=== PATIENT | female | born 1975 | race Caucasian/White ===

== ENCOUNTER 2020-03-10 12:41 | Outpatient (REF) | payer OTHER, SELFPAY ==
--- NOTE | 2020-03-10 12:46 | MM_ITS ---
EXAMINATION: MM SCREENING DIGITAL MAMMOGRAPHY, BILATERAL CLINICAL INFORMATION: Screening. Asymptomatic. The lifetime risk of breast cancer based on the Tyrer-Cuzick Model is 13.3%. COMPARISON: Mammography: 11/14/2018 and studies dating back to 04/24/2014. TECHNIQUE: Digital mammography is performed in craniocaudal and mediolateral oblique views along with computer-aided detection (CAD). FINDINGS: There are scattered areas of fibroglandular density (ACR BI-RADS breast composition Category b). There is a grouping of calcifications about the deep upper outer aspect of the left breast, approximately 11 cm from the nipple for which spot magnification films are recommended. No abnormality of the right breast is appreciated. MM/MM screening mammo BI IMPRESSION: Left breast calcifications upper outer aspect for which spot magnification films are recommended. ASSESSMENT: BI-RADS 0: Incomplete - Need Additional Imaging Evaluation. RECOMMENDATION: 1. Additional views of the left breast. 2. Targeted ultrasound if warranted after review of the additional views. 3. Radiology department staff will contact the patient for additional imaging.
== END 2020-03-10 12:42 | disposition home or self-care (01) ==
LOC: HO.MAMMO 12:41
PROVIDERS: Visit Provider Internal Medicine
DX: Z12.31 Encounter for screening mammogram for malignant neoplasm of breast (principal)
CPT/HCPCS: 77067

== ENCOUNTER 2020-04-02 13:51 | Outpatient (REF) | payer OTHER, SELFPAY ==
--- NOTE | 2020-04-02 13:57 | MM_ITS ---
EXAMINATION: MM DIAGNOSTIC DIGITAL MAMMOGRAPHY, LEFT CLINICAL INFORMATION: Recall from screening for calcifications posterior upper outer left breast. COMPARISON: Mammography: 03/10/2020, 11/14/2018, 12/07/2016 TECHNIQUE: Digital mammography is performed in the following views: Magnification CC, magnification ML, magnification CC x2. FINDINGS: There are scattered areas of fibroglandular density (ACR BI-RADS breast composition Category b). The additional views show group of 6 punctate round calcifications in the posterior upper breast best appreciated on MLO view. The calcifications are not as well visible and lesser in number on the CC views. Management options were discussed with the patient including short interval follow-up surveillance as well as attempt at stereotactic sampling. At this time, patient prefers attempting stereotactic sampling. She understands that if tissue sampling is not performed then short interval diagnostic mammographic follow-up will be required. MM/MM added views LT IMPRESSION: Small group of faint calcifications posterior upper outer left breast. ASSESSMENT: BI-RADS 4: Suspicious (subcategory 4A: Low suspicion for malignancy) RECOMMENDATION: 1. Stereotactic sampling of the left breast calcifications. 2. If tissue sampling is not performed, then follow up diagnostic left mammography to include magnification views in 6 months. This patient's information was entered into a reminder system with a target due date for their next mammogram.
== END 2020-04-02 13:52 | disposition home or self-care (01) ==
LOC: HO.MAMMO 13:51
PROVIDERS: PCP Internal Medicine; Visit Provider Internal Medicine
DX: R92.1 Mammographic calcification found on diagnostic imaging of breast (principal)
CPT/HCPCS: 77065

== ENCOUNTER → 2020-04-07 15:06 | Outpatient (BNVA) | payer OTHER, SELFPAY | PROVIDERS: PCP Internal Medicine; Referring Provider Internal Medicine; Visit Provider Internal Medicine | DX: Z76.89 Persons encountering health services in other specified circumstances (principal) ==

== ENCOUNTER → 2020-04-08 08:25 | Outpatient (BNVA) | payer OTHER, SELFPAY | PROVIDERS: PCP Internal Medicine; Visit Provider Surgery | DX: Z76.89 Persons encountering health services in other specified circumstances (principal) ==

== ENCOUNTER 2020-04-15 08:00 | Outpatient (REF) | payer OTHER, SELFPAY ==
--- NOTE | 2020-04-15 08:04 | MM_ITS ---
EXAMINATION: STEREOTACTIC TOMOSYNTHESIS-GUIDED VACUUM-ASSISTED BREAST BIOPSY, LEFT SPECIMEN RADIOGRAPH, LEFT POST PROCEDURE DIGITAL MAMMOGRAM, LEFT CLINICAL INFORMATION: Small grouped calcifications posterior upper outer left breast, 5-8 in number. COMPARISON: Mammography 03/10/2020, 04/02/2020. TECHNIQUE/PROCEDURE: Informed consent was obtained from the patient after discussion of the benefits, risks, and alternatives to biopsy today. Patient appeared to understand. Gave opportunity for questions. Patient signed consent form. BIOPSY TABLE: [employer] Biopsy System. LESION: Grouped calcifications posterior upper outer left breast. LOCAL ANESTHESIA: 7 mL 1% lidocaine; 10 mL 1% lidocaine with epinephrine. DERMATOTOMY: Single skin baldemar dermatotomy performed. NEEDLE: [employer] Eviva 9-gauge vacuum assisted core biopsy device. APPROACH: lateral medial. TARGETING: Digital breast tomosynthesis used for targeting. CORES: 6. CLIP: [employer] Sec[employer]Mark T-shaped marker. SPECIMEN RADIOGRAPH: Specimen radiograph is taken in separate room using digital mammography. There are 3 punctate calcifications in one of the cores. POST PROCEDURE UNILATERAL DIGITAL MAMMOGRAM: The post biopsy mammogram is performed in separate room using separate digital mammography equipment from the biopsy procedure. CC and ML views are obtained. There are scattered areas of fibroglandular density (breast composition category: b). The clip marker is in position. No gross hematoma. The patient tolerated the procedure well. No immediate complications. Home instructions reviewed with the patient. Final pathology results are pending. MM/MM stereotactic biopsy LT IMPRESSION: 1. Digital tomosynthesis-guided core biopsy left breast with clip placement. 2. Specimen radiograph taken and post procedure mammogram. There is satisfactory positioning of the biopsy clip. 3. Final pathology results pending. An addendum report will be issued.
== END 2020-04-15 08:01 | disposition home or self-care (01) ==
LOC: HO.MAMMO 08:00
PROVIDERS: Visit Provider Surgery
DX: R92.1 Mammographic calcification found on diagnostic imaging of breast (principal)
CPT/HCPCS: 19081; 88305; A4648

== ENCOUNTER 2020-04-16 16:22 | Outpatient (REF) | payer OTHER, SELFPAY ==
--- NOTE | 2020-04-16 16:27 | US_ITS ---
EXAMINATION: US THYROID CLINICAL INFORMATION: Nontoxic goiter, unspecified. COMPARISON: Ultrasound soft tissue head/neck thyroid dated 01/11/2018 and 04/17/2015 TECHNIQUE: Linear transducer riggins-scale and color Doppler examination with attention to the region of the thyroid. FINDINGS: SIZE: Measurements of the thyroid lobes and nodules are given in sagittal, anteroposterior and transverse dimensions respectively. Right Thyroid Lobe: 5.6 x 1.3 x 1.9 cm, volume 7.4 mL. Previously 5.1 x 1.3 x 1.8 cm, volume 5.4 mL. Parenchyma: The gland echotexture is homogeneous. Thyroid vascularity is normal. Left Thyroid Lobe: 5.0 x 1.4 x 1.7 cm, volume 6.1 mL. Previously 5.2 x 1.3 x 1.8 cm, volume 6.4 mL. Parenchyma: The gland echotexture is homogeneous. Thyroid vascularity is normal. Isthmus: 0.5 cm in maximum AP dimension. Previously 0.3 cm. RIGHT THYROID LOBE: There are 3 nodules seen. 1. Location: Superior. Size: 0.4 x 0.3 x 0.4 cm. Previous: 0.5 x 0.6 x 0.6 cm. Nodule characteristics: Heterogenous, irregular shaped but no calcification and no intranodular flow. 2. Location: Middle. Size: 0.9 x 0.6 x 1.1 cm. Previous: 0.5 x 1.0 x 1.0 cm. Nodule characteristics: Heterogeneous, irregular shaped with intranodular flow. 3. Location: Inferior. Size: 0.5 x 0.4 x 0.7 cm. Previous: 0.6 x 0.5 x 0.5 cm. Nodule characteristics: Heterogeneous, irregular margins with intranodular flow. ISTHMUS: There is greater than 1 nodule seen. 1. Location: Middle. Size: 0.6 x 0.3 x 0.5 cm. Previous: 0.7 x 0.5 x 0.8 cm. Nodule characteristics: Hypoechoic, irregular margins with intranodular flow. LEFT THYROID LOBE: There are 4 nodules seen. 1. Location: Middle. Size: 0.9 x 0.6 x 0.8 cm. Previous: 0.9 x 0.6 x 0.7 cm. Nodule characteristics: Heterogeneous, smoothly marginated with intranodular flow. 2. Location: Middle. Size: 0.4 x 0.2 x 0.3 cm. Previous: Not documented on the prior study. Nodule characteristics: Heterogenous, irregular shaped with intranodular flow. 3. Location: Inferior. Size: 0.7 x 0.6 x 0.6 cm. Previous: Not documented on the prior study. Nodule characteristics: Hypoechoic, smoothly marginated with no intranodular flow, likely simple cyst. 4. Location: Inferior. Size: 0.9 x 0.6 x 1.0 cm. Previous: 1.2 x 0.7 x 1.2 cm. Nodule characteristics: Heterogeneous, irregular margins and intranodular flow. NODES: No lymphadenopathy is seen in the tissue surrounding the thyroid gland. US/US thyroid IMPRESSION: Multiple subcentimeter thyroid nodules, nonsuspicious. Recommend continued ultrasound followup.
== END 2020-04-16 16:23 | disposition home or self-care (01) ==
LOC: HO.US 16:22
PROVIDERS: Visit Provider Internal Medicine
DX: E04.9 Nontoxic goiter, unspecified (principal)
CPT/HCPCS: 76536

== ENCOUNTER → 2020-05-07 10:31 | Outpatient (BNVA) | payer OTHER, SELFPAY | PROVIDERS: PCP Internal Medicine; Visit Provider Dietitian, Registered ==

== ENCOUNTER 2021-07-14 08:10 | Outpatient (REF) | payer BC, SELFPAY ==
--- NOTE | ~2021-07-14 | MM_ITS ---
EXAMINATION: MM SCREENING DIGITAL BREAST TOMOSYNTHESIS, BILATERAL CLINICAL INFORMATION: Screening. Asymptomatic. Benign left stereotactic biopsy 04/15/2020 (benign breast tissue with fibrocystic changes and rare microcalcifications). The lifetime risk of breast cancer based on the Tyrer-Cuzick Model is 13%. COMPARISON: Mammography: 04/15/2020, 04/02/2020, 03/10/2020, 11/14/2018, 12/14/2016, 12/07/2016, 09/24/2015, 04/24/2014; right breast ultrasound 12/14/2016. TECHNIQUE: Digital breast tomosynthesis is performed in both the craniocaudal and mediolateral oblique views along with computer-aided detection (CAD). Synthesized 2D images are generated from the tomosynthesis. FINDINGS: There are scattered areas of fibroglandular density (ACR BI-RADS breast composition Category b). There are no significant masses, abnormal calcifications, or other abnormalities. There are scattered asymmetries and shifting fibroglandular densities related to positioning similar to prior exams. No significant changes. There is a biopsy clip marker posterior upper outer left breast. No recurrent calcifications. The axilla and skin contours are unremarkable. MM/MM tomosynthesis screening BI IMPRESSION: No significant changes from prior exams. ASSESSMENT: BI-RADS 2: Benign RECOMMENDATION: Routine annual mammography screening. This patient's information was entered into a reminder system with a target due date for their next mammogram.
== END 2021-07-14 08:11 | disposition home or self-care (01) ==
LOC: HO.MAMMO 08:10
PROVIDERS: Visit Provider Internal Medicine
DX: Z12.31 Encounter for screening mammogram for malignant neoplasm of breast (principal)
CPT/HCPCS: 77063; 77067

== ENCOUNTER 2021-12-01 08:26 | Outpatient (REF) | payer BC, SELFPAY ==
--- NOTE | ~2021-12-01 | US_ITS ---
EXAMINATION: US ABDOMEN COMPLETE CLINICAL INFORMATION: Right upper quadrant pain. COMPARISON: CT abdomen and pelvis 04/11/2013. TECHNIQUE: Real-time imaging of the abdominal viscera. FINDINGS: PANCREAS: Not well visualized due to bowel gas ABDOMINAL AORTA: The proximal, mid, and distal segments are normal in caliber. INFERIOR VENA CAVA: Visualized portions are normal. LIVER: Liver echotexture is increased. The liver is slightly enlarged. The liver contour is normal. No focal hepatic lesion. There is no intrahepatic biliary duct dilatation seen. GALLBLADDER: Normal. The gallbladder is physiologically distended without evidence of stones, sludge, polyps, wall thickening or pericholecystic fluid. COMMON BILE DUCT: Normal in caliber measuring 0.3 cm in diameter. RIGHT KIDNEY: Normal. No hydronephrosis. No renal calculi or focal parenchymal lesions. The kidney measures 13.2 cm in maximum dimension. LEFT KIDNEY: Normal. No hydronephrosis. No renal calculi or focal parenchymal lesions. The kidney measures 11.2 cm in maximum dimension. SPLEEN: There is a round 7.5 x 7.6 cm lesion exophytic to the posterior medial spleen. This has a calcified wall and internal echoes and unchanged from size from previous CT scan. When compared with previous CT scan this probably represents a complex cyst. The spleen measures 13.1 cm in maximum dimension. FREE FLUID: None. US/US abdomen complete IMPRESSION: Enlarged echogenic liver probably representing fatty infiltration. Normal-appearing gallbladder. 7.5 x 7.6 cm probable complex cyst splenic cyst. This is similar in size to old CT scans from 2013 and 2010. Limited visualization of the pancreas.
== END 2021-12-01 08:27 | disposition home or self-care (01) ==
LOC: HO.HMGCX 08:26
PROVIDERS: Visit Provider Internal Medicine
DX: R10.11 Right upper quadrant pain (principal); R79.89 Other specified abnormal findings of blood chemistry
CPT/HCPCS: 76700

== ENCOUNTER 2022-06-23 08:16 | Outpatient (REF) | payer BC, SELFPAY ==
[2022-06-23 11:54] LABS: MANUAL DIFF FLAG NO
[2022-06-23 12:09] LABS: Basophils Absolute Auto 0.1 X10*3/uL (0.0-0.2); Eosinophils Absolute Auto 0.3 X10*3/uL (0.0-0.4); Hematocrit 41.9 % (37.0-47.0); Hemoglobin 14.4 g/dl (12.0-16.0); Imm Gran Abs Auto 0.02 X10*3/uL (0.00-0.03); Imm Gran Pct Auto 0.3 % (0.0-0.4); Lymphocytes Absolute Auto 2.3 X10*3/uL (1.2-4.9); Mean Corpuscular HGB Conc 34.4 g/dl (31.0-35.0); Mean Corpuscular Hemoglobin 31.8 pg (27.0-33.0); Mean Corpuscular Volume 92.5 fL (80.0-98.0); Mean Platelet Volume 13.9 fL (9.4-12.3); Monocytes Absolute Auto 0.4 X10*3/uL (0.1-1.2); Monocytes Percent Auto 6.3 % (2-11); Neutrophils Absolute Auto 3.9 x10*3/uL (2.0-8.3); Neutrophils Percent Auto 55.4 % (45-73); Platelet Count 126 X10*3/uL (160-400); Red Blood Count 4.53 X10*6/uL (4.20-5.50); Red Cell Distribution Width 11.9 % (11.0-16.0)
[2022-06-23 12:59] LABS: Alanine Aminotransferase 44 U/L (0-31); Albumin Level 4.2 g/dL (3.5-5.0); Alkaline Phosphatase 87 U/L (39-117); Anion Gap 13 (12-20); Aspartate Amino Transferase 29 U/L (5-31); Bilirubin Total 0.5 mg/dL (0.0-1.0); Blood Urea Nitrogen 8 mg/dL (9-16); Calcium 9.6 mg/dL (8.4-10.2); Carbon Dioxide 25 mmol/L (22-29); Chloride 107 mmol/L (96-108); Cholesterol 220 mg/dL; Estimated Glomerular Filt Rate > 60; Glucose Fasting 108 mg/dL (60-99); HDL Cholesterol 51 mg/dL; LDL Cholesterol Calculated 150 mg/dl; Potassium 4.3 mmol/L (3.3-5.1); Sodium 141 mmol/L (135-145); TSH reflex Free T4 1.65 uIU/mL (0.32-4.0); Total Protein 6.3 g/dL (6.5-8.0); Triglycerides 96 mg/dL
== END 2022-06-23 08:17 | disposition home or self-care (01) ==
LOC: HO.HMGCLDS 08:16
PROVIDERS: PCP Internal Medicine; Visit Provider Internal Medicine
DX: D69.6 Thrombocytopenia, unspecified (principal); E66.09 Other obesity due to excess calories; E78.9 Disorder of lipoprotein metabolism, unspecified; F33.41 Major depressive disorder, recurrent, in partial remission; F41.1 Generalized anxiety disorder; R00.2 Palpitations; R79.89 Other specified abnormal findings of blood chemistry
CPT/HCPCS: 36415; 80053; 80061; 84443; 85025

== ENCOUNTER 2022-06-25 08:18 | Outpatient (REF) | payer BC, SELFPAY ==
--- NOTE | ~2022-06-25 | XR_ITS ---
EXAMINATION: XR cervical spine 2V CLINICAL INFORMATION: Pain COMPARISON: None TECHNIQUE: 3 views of the cervical spine were obtained. FINDINGS: The cervical spine is visualized to the level of C6 on the lateral view. Loss of the usual cervical spine lordosis which may be due to positioning or muscle spasm. Vertebral body heights are maintained. Lateral masses of C1 are well aligned on C2. Visualized portion of the dens is intact. Intervertebral disc spaces are preserved. No prevertebral soft tissue swelling. XR/XR cervical spine 2V IMPRESSION: Loss of usual cervical spine lordosis which may be due to positioning or muscle spasm.
== END 2022-06-25 08:19 | disposition home or self-care (01) ==
LOC: HO.HMGCX 08:18
PROVIDERS: PCP Internal Medicine; Visit Provider Internal Medicine
DX: M54.12 Radiculopathy, cervical region (principal)
CPT/HCPCS: 72040

== ENCOUNTER → 2022-07-27 14:40 | Outpatient (BNVA) | payer BC, SELFPAY | PROVIDERS: PCP Internal Medicine; Visit Provider Physician Assistant | DX: M54.12 Radiculopathy, cervical region (principal) | CPT/HCPCS: 99202 ==

== ENCOUNTER 2022-08-26 09:42 | Outpatient (REF) | payer MEDICAID, SELFPAY ==
--- NOTE | ~2022-08-26 | MR_ITS ---
EXAMINATION: MR CERVICAL SPINE WITHOUT CONTRAST CLINICAL INFORMATION: Numbness and pain in the right arm and hand COMPARISON: None TECHNIQUE: MRI of the cervical spine was obtained using routine sequences without contrast. FINDINGS: Trace retrolisthesis of C5 on C6. No suspicious marrow signal or focal osseous lesion. The vertebral body heights are maintained. The intervertebral discs are of normal height and signal. The cervical spinal cord is normal in caliber and signal Limited evaluation of the soft tissues of the neck without demonstrated abnormalities. The flow voids of the major cervical vessels are maintained. Normal appearance of the cervicomedullary junction. Slight caudal positioning of the right cerebellar tonsil which extends up to 5 mm below the foramen magnum and demonstrates a pointed morphology. SPINAL LEVELS: C2-C3: No significant spinal canal or neuroforaminal narrowing C3-C4: Right uncovertebral hypertrophy. No significant central spinal canal stenosis. Mild to moderate right neural foraminal narrowing. C4-C5: No significant spinal canal or neuroforaminal narrowing C5-C6: Left eccentric osteophyte complex and uncovertebral hypertrophy. Moderate central spinal canal stenosis. Mild to moderate bilateral neural foraminal narrowing, left greater than right C6-C7: Disc osteophyte complex and uncovertebral hypertrophy. Mild central spinal canal stenosis. Severe right and moderate to severe left neural foraminal narrowing. C7-T1: No significant spinal canal or neuroforaminal narrowing MR/MR cervical spine wo con IMPRESSION: 1. Multilevel cervical spondylosis as described above, worst at C5-C6 and C6-C7. There is moderate spinal canal stenosis at C5-C6 and mild spinal canal stenosis at C6-C7. Neuroforaminal narrowing is worst at C6-C7 and severe on the right and moderate to severe on the left. 2. 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
== END 2022-08-26 09:43 | disposition home or self-care (01) ==
LOC: HO.MRI 09:42
PROVIDERS: PCP Internal Medicine; Visit Provider Physician Assistant
DX: M54.12 Radiculopathy, cervical region (principal)
CPT/HCPCS: 72141

== ENCOUNTER 2022-08-31 10:00 | Outpatient (RCR) | payer MEDICAID, SELFPAY ==
--- NOTE | 2022-08-24 11:32 | MHC.PT.EP ---
[facility] [place] Office [place] Office [place] Office [address] Mook Guy [address] [phone] F: [phone] F: [phone] F: [phone] F: [phone] Physical Therapy Plan of Care Date of Evaluation: Date of Surgery: n/a Diagnosis: radiculopathy cervical region Assessment: Patient is a 46 year old female presenting to PT with complaints of cervical radiculopathy. Pt reports onset of pain began April 2022 due to insidious onset. She presents today with impairments in pain, numbness, tingling, posture, DNF strength. 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 Pt expresses alf goal of reducing pain, and is motivated to work towards this in PT. Clinical presentation today is most consistent with signs and sx associated with possible cervical radiculopathy and pt will benefit from skilled PT 2 week x 4 weeks to address the following problems and impairments noted upon evaluation: pain, numbness, tingling, posture, DNF strength. These problems limit the patient with the following functional activities: driving, gripping, ADLs, sleeping on L, looking to L. The prescribed treatment plan of care is medically necessary. Co-morbidities of none were identified and taken into considerations of plan of care. Pt was educated on HEP, role of PT, prognosis, POC. Frequency and Duration: The patient will be seen 2 x week x 4 weeks Short Term Goals: Pt will demonstrate ability to move through cervical AROM without onset of sx in 2 weeks. Pt will demonstrate centralization of sx in 2 weeks. Pt will demonstrate improved postural awareness by sitting with biomechanically correct posture without cues throughout session to improve overall postural function in 2 weeks. Upper Cutter Machine Goals: Pt will demonstrate improved NDI by 10% in 4 weeks for improved functional mobility. Pt will demonstrate ability to drive without feeling issues with gripping the steering wheel in 4 weeks. Pt will demonstrate ability to sleep on her L side without onset of sx in 4 weeks for return to PLOF. Treatment Plan: Modalities to reduce pain, spasms and effusion. Manual therapy to restore motion and function. Therapeutic exercise to improve strength and flexibility. Neuromuscular re-education for posture and balance. Therapeutic activities to return to functional activities of daily living. Electronically signed by: Marlyn Porter, PT, DPT, ATC Please sign and return to therapist. Thank you for your referral.
--- NOTE | 2022-09-14 07:51 | MHC.PT.DC ---
[facility] [place] Office [place] Office [place] Office [address] Mook Guy [address] [phone] F: [phone] F: [phone] F: [phone] F: [phone] Physical Therapy Discharge Report Diagnosis: radiculopathy cervical region Date of Surgery: n/a Date of Evaluation: 08/24/22 Date of Discharge: 09/14/22 Treatments to Date: 2 Cancellations to Date: 1 No Shows to Date: 2 Discharge Status: Visit Non-compliance Discharge Summary: Pt has failed to comply with [facility] attendance policy and no showed her last 2 scheduled visits. Pt to be d/c at this time. Electronically signed by: Marlyn Porter, PT, DPT, ATC Please sign and return to therapist. Thank you for your referral.
== END 2022-09-14 07:51 | disposition home or self-care (01) ==
LOC: HO.PTCHIC 10:00
PROVIDERS: PCP Internal Medicine; Visit Provider Physician Assistant
DX: M54.12 Radiculopathy, cervical region (principal)
CPT/HCPCS: 97110; 97161

== ENCOUNTER 2022-09-25 09:54 | Outpatient (REF) | payer OTHER, SELFPAY ==
--- NOTE | ~2022-09-25 | MM_ITS ---
EXAMINATION: MM SCREENING DIGITAL BREAST TOMOSYNTHESIS, BILATERAL CLINICAL INFORMATION: Screening. Asymptomatic. The lifetime risk of breast cancer based on the Tyrer-Cuzick Model is 13%. COMPARISON: Prior mammography exams including most recent 07/14/2021. TECHNIQUE: Digital breast tomosynthesis is performed in both the craniocaudal and mediolateral oblique views along with computer-aided detection (CAD). Synthesized 2D images are generated from the tomosynthesis. FINDINGS: There are scattered areas of fibroglandular density (ACR BI-RADS breast composition Category b). There are no significant masses, abnormal calcifications, or other abnormalities. There is a biopsy clip marker posterior upper outer left breast. Scattered minor asymmetries are similar to prior exams. No developing density or architectural abnormality. The axilla and skin contours are unremarkable. No significant changes. MM/MM tomosynthesis screening BI IMPRESSION: No mammographic evidence of malignancy. ASSESSMENT: BI-RADS 2: Benign RECOMMENDATION: Routine annual mammography screening. This patient's information was entered into a reminder system with a target due date for their next mammogram.
== END 2022-09-25 09:55 | disposition home or self-care (01) ==
LOC: HO.MAMMO 09:54
PROVIDERS: PCP Internal Medicine; Visit Provider Internal Medicine
DX: Z12.31 Encounter for screening mammogram for malignant neoplasm of breast (principal)
CPT/HCPCS: 77063; 77067

== ENCOUNTER 2022-11-05 13:02 | Outpatient (AMB) | payer OTHER, MEDICAID, SELFPAY ==
[2022-11-05 13:05] VITALS: BP 134/78; PULSE 92; TEMP 36.1; O2SAT 98; BMI 35.9
--- NOTE | 2022-11-05 13:06 | MHC.PC.OV ---
Vital Signs 11/05/22 13:05 Height 5 ft 8 in Weight 236 lb 6 oz BMI 35.9 BP 134/78 Blood Pressure Location Lt brachial Position Sitting Pulse 92 Pulse Source Pulse Oximeter Temp 96.9 F Temp Source Temporal Artery Scan Pulse Oximetry (%) 98 Oxygen Delivery Method Room Air Intake Visit Reasons: Follow up Allergies Penicillins [PCN] Allergy (Unknown, Verified 11/05/22 13:06) RASH Medication List - Last Reconciled 11/05/22 by Debbie Lozada MD bupropion HCl (Wellbutrin SR) 150 mg PO BID 90 days omega 1-hdp-ztr-fish oil 1,000 mg (120 mg-180 mg) (Fish Oil) 1 cap PO DAILY omeprazole 20 mg PO DAILY Tobacco use date assessed: 11/05/22 Dental Screening Dental Screen Date: 11/05/22 Did you have a dental visit in the last 12 months?: Yes Did you have a dental problem in the last 6 months where you did not have access to dental care?: No Was dental information given to patient?: No HPI Follow up HPI Details 47-year-old female came in today to talk about few medical issues Patient is prediabetic last time she was seen June of this year she was supposed to have labs done and then come in for physical exam but she did not Reminded patient do the labs She also take Wellbutrin for depression and omeprazole for chronic GERD she is c/o of mood swings, has taken fluoxtine in the past, and did OK Afraid to have side effects medication , I am starting her on buspirone as she is having anxiety and panic-like symptoms off and on patient is to start with 1 tablet in the morning She may take 1 after 8 hours up to 3 times a day. Patient says that she has counselor that she going to start seeing a She is to continue Wellbutrin Her bloating sensation is causing distress she is on omeprazole I have changed it to pantoprazole She does have a family history of colon cancer I have placed a referral to gastroenterology for further evaluation. She is to return in 3 weeks for follow-up FOR[facility]LY [facility], [facility] Medical History Anxiety, generalized Breast calcification, left Depression, major, recurrent, in partial remission Environmental allergies Goiter HLD (hyperlipidemia) Lipid disorder Obesity Vitamin D deficiency Surgical History History of section History of lumbar surgery Family History Father HTN (hypertension) CHF (congestive heart failure) CVD (cardiovascular disease) Hypercholesterolemia Hx of CABG Myocardial infarction Mother Osteoporosis HTN (hypertension) Brother HTN (hypertension) Hypercholesterolemia Social History Housing: House Alcohol intake: current Alcohol intake frequency: holidays/special occasions only Patient Tobacco Use Status: Former Tobacco user Cigarette Packs Per Day: 1 Years Smoked: 30 e-Cigarette/Vaping Use: Never Used service: No Current occupational status: employed Cognitive needs: Yes Hearing needs: No Vision needs: No Questionnaire Thrive Questionnaire Date Thrive assessed: 09/04/21 AUDIT C Alcohol Use Questionnaire (AUDIT-C) 1. How often do you have a drink containing alcohol?: Monthly or less 2. How many drinks containing alcohol do you have on a typical day when you are drinking?: 1 or 2 3. How often do you have six or more drinks on one occasion?: Never Total Score: 1 CARLA-7 AMB Questionnaire CARLA-7 Date CARLA - 7 assessed: 09/04/21 Source: Developed by Drs. Igor Nagel, Juanita Pulido, Shamar Rust and colleagues, with an educational joseph from [employer]. Review of Systems Const Denies chills and Denies fever(s) ENT Denies epistaxis and Denies nasal discharge Card Denies chest pain Resp Denies chest congestion, Denies cough and Denies hemoptysis GI Denies diarrhea and Denies nausea Skin/Breast Denies rash Neuro Reports no additional complaints Psych Reports no additional complaints Endo Reports no additional complaints Physical exam (Primary Care) Vital Signs: Last Vital Signs Temp 96.9 F 11/05/22 13:05 Pulse 92 11/05/22 13:05 BP 134/78 11/05/22 13:05 Pulse Ox 98 11/05/22 13:05 Oxygen Delivery Method Room Air 11/05/22 13:05 BMI result Body Mass Index 35.9 Tobacco/Smoking Status: Tobacco use Status Tobacco use date assessed 11/05/22 11/05/22 13:07 Patient Tobacco Use Status Former Tobacco user 11/05/22 13:07 e-Cigarette/Vaping Use Never Used 11/05/22 13:07 Thrive Assessment: Date of Thrive Assessment Date Thrive assessed 09/04/21 11/05/22 13:07 Const General: cooperative, comfortable and no acute distress Orientation/consciousness: patient oriented x3 HENMT Head: Yes normocephalic Eyes General: appearance normal, both eyes and all related structures Neck Neck: Yes supple Resp Effort & Inspection: normal respiratory effort, no cough and no stridor Cardio Rhythm: regular rhythm Heart sounds: S1 normal heart sound present and S2 normal heart sound present Skin General skin exam: turgor normal Neuro General: patient oriented x3, tone normal and moves all extremities Extrem Right lower extremity: no edema Left lower extremity: no edema Assessment and Plan Assessment & Plan (1) Major depression, recurrent: Code(s): F33.9 - Major depressive disorder, recurrent, unspecified (2) Bloating: Code(s): R14.0 - Abdominal distension (gaseous) (3) Mood swings: Code(s): R45.86 - Emotional lability (4) Anxiety, generalized: Code(s): F41.1 - Generalized anxiety disorder (5) Colon cancer screening: Code(s): Z12.11 - Encounter for screening for malignant neoplasm of colon Plan 47-year-old female came in today to talk about few medical issues Patient is prediabetic last time she was seen June of this year she was supposed to have labs done and then come in for physical exam but she did not Reminded patient do the labs She also take Wellbutrin for depression and omeprazole for chronic GERD she is c/o of mood swings, has taken fluoxtine in the past, and did OK Afraid to have side effects medication , I am starting her on buspirone as she is having anxiety and panic-like symptoms off and on patient is to start with 1 tablet in the morning She may take 1 after 8 hours up to 3 times a day. Patient says that she has counselor that she going to start seeing a She is to continue Wellbutrin Her bloating sensation is causing distress she is on omeprazole I have changed it to pantoprazole She does have a family history of colon cancer I have placed a referral to gastroenterology for further evaluation. She is to return in 3 weeks for follow-up Orders: Referrals Gastroenterology Referral R14.0 - Abdominal distension (gaseous), Z12.11 - Encounter for screening for malignant neoplasm of colon Medications: New buspirone 5 mg PO .q am PRN 30 tabs 0RF anxiety 30 days pantoprazole 40 mg PO DAILY 30 tabs 0RF Coding Level of Care Code Est Pt Level 4 (22809) Diagnoses Major depression, recurrent F33.9 Bloating R14.0 Mood swings R45.86 Anxiety, generalized F41.1 Colon cancer screening Z12.11
== END 2022-11-05 14:05 | disposition home or self-care (01) ==
PROVIDERS: PCP Internal Medicine; Visit Provider Internal Medicine
DX: F33.9 Major depressive disorder, recurrent, unspecified (principal); R14.0 Abdominal distension (gaseous); R45.86 Emotional lability; F41.1 Generalized anxiety disorder; Z12.11 Encounter for screening for malignant neoplasm of colon
CPT/HCPCS: 99214

== ENCOUNTER 2022-11-18 10:34 | Outpatient (REF) | payer OTHER, SELFPAY ==
[2022-11-18 13:52] LABS: Estimated Average Glucose 91 mg/dL; Hemoglobin A1c % 4.8 %
[2022-11-18 13:56] LABS: Basophils Absolute Auto 0.1 X10*3/uL (0.0-0.2); Basophils Percent Auto 0.7 % (0-2); Eosinophils Absolute Auto 0.2 X10*3/uL (0.0-0.4); Hematocrit 41.3 % (37.0-47.0); Hemoglobin 14.5 g/dl (12.0-16.0); Imm Gran Abs Auto 0.02 X10*3/uL (0.00-0.03); Imm Gran Pct Auto 0.2 % (0.0-0.4); Lymphocytes Absolute Auto 2.5 X10*3/uL (1.2-4.9); Lymphocytes Percent Auto 31.4 % (20-40); MANUAL DIFF FLAG SCAN; Mean Corpuscular HGB Conc 35.1 g/dl (31.0-35.0); Mean Corpuscular Hemoglobin 32.4 pg (27.0-33.0); Mean Corpuscular Volume 92.4 fL (80.0-98.0); Monocytes Absolute Auto 0.5 X10*3/uL (0.1-1.2); Monocytes Percent Auto 5.9 % (2-11); Neutrophils Absolute Auto 4.8 x10*3/uL (2.0-8.3); Neutrophils Percent Auto 59.8 % (45-73); PLT CLUMP 1; Red Blood Count 4.47 X10*6/uL (4.20-5.50); Red Cell Distribution Width 11.7 % (11.0-16.0); SCAN SMEAR FLAG 1
[2022-11-18 14:00] LABS: Alanine Aminotransferase 96 U/L (0-31); Albumin Level 4.2 g/dL (3.5-5.0); Alkaline Phosphatase 74 U/L (39-117); Anion Gap 10 (12-20); Aspartate Amino Transferase 54 U/L (5-31); Bilirubin Total 0.6 mg/dL (0.0-1.0); Blood Urea Nitrogen 11 mg/dL (9-16); Calcium 9.5 mg/dL (8.4-10.2); Carbon Dioxide 26 mmol/L (22-29); Chloride 108 mmol/L (96-108); Cholesterol 221 mg/dL; Estimated Glomerular Filt Rate > 60; Glucose Fasting 90 mg/dL (60-99); HDL Cholesterol 52 mg/dL; LDL Cholesterol Calculated 151 mg/dl; Potassium 4.7 mmol/L (3.3-5.1); Sodium 139 mmol/L (135-145); Total Protein 6.9 g/dL (6.5-8.0); Triglycerides 92 mg/dL
[2022-11-18 14:32] LABS: Platelet Count 140 X10*3/uL (160-400); SLIDE REVIEW VERIFIED
== END 2022-11-18 10:35 | disposition home or self-care (01) ==
LOC: HO.HMGCLDS 10:34
PROVIDERS: PCP Internal Medicine; Visit Provider Internal Medicine
DX: F33.9 Major depressive disorder, recurrent, unspecified (principal); M54.12 Radiculopathy, cervical region; R73.01 Impaired fasting glucose; R79.89 Other specified abnormal findings of blood chemistry; E78.9 Disorder of lipoprotein metabolism, unspecified
CPT/HCPCS: 36415; 80053; 80061; 83036; 85025

== ENCOUNTER 2022-11-26 13:01 | Outpatient (AMB) | payer OTHER, MEDICAID, SELFPAY ==
[2022-11-26 13:04] VITALS: BP 124/76; PULSE 86; O2SAT 97; BMI 35.9
--- NOTE | 2022-11-26 13:04 | MHC.PC.OV ---
Vital Signs 11/26/22 13:04 Height 5 ft 8 in Weight 236 lb 2 oz BMI 35.9 BP 124/76 Blood Pressure Location Rt brachial Position Sitting Pulse 86 Pulse Source Pulse Oximeter Pulse Oximetry (%) 97 Oxygen Delivery Method Room Air Intake Visit Reasons: 3-4 week Follow up/Ok per Dr. Lozada Allergies Penicillins [PCN] Allergy (Unknown, Verified 11/26/22 13:07) RASH Medication List - Last Reconciled 11/26/22 by Debbie Lozada MD bupropion HCl (Wellbutrin SR) 150 mg PO BID 90 days buspirone 5 mg PO .q am PRN 30 days omega 7-jqh-cuh-fish oil 1,000 mg (120 mg-180 mg) (Fish Oil) 1 cap PO DAILY Tobacco use date assessed: 11/26/22 Dental Screening Dental Screen Date: 11/26/22 Did you have a dental visit in the last 12 months?: Yes Did you have a dental problem in the last 6 months where you did not have access to dental care?: No Was dental information given to patient?: No HPI 3-4 week Follow up/Ok per Dr. Lozada HPI Details Patient is 47-year-old female came in today for follow-up appointment Anxiety: Patient has started taking buspirone she is feeling better she will introduce another tablet currently she is only taking 1 or 2. She could not tolerate pantoprazole so she went back to omeprazole. We talked about diet today I would recommend for her to eliminate dairy from her diet and see if her bloating gets better Also to keep a food diary. She has an appointment with review appraiser and this month discuss colonoscopy. Labs done recently reviewed with the patient her ease teen ALT is mildly elevated will continue to monitor that LDL is 151 we discussed that as well I will book her appointment with the dietitian to further discuss diet restrictions. BMI is elevated patient is trying to lose weight. She will return in 3 months for follow-up appointment. Patient had EKG done early this year which is within normal limit [facility] Medical History Anxiety, generalized Breast calcification, left Depression, major, recurrent, in partial remission Environmental allergies Goiter HLD (hyperlipidemia) Lipid disorder Obesity Vitamin D deficiency Surgical History History of section History of lumbar surgery Family History Father HTN (hypertension) CHF (congestive heart failure) CVD (cardiovascular disease) Hypercholesterolemia Hx of CABG Myocardial infarction Mother Osteoporosis HTN (hypertension) Brother HTN (hypertension) Hypercholesterolemia Social History Housing: House Alcohol intake: current Alcohol intake frequency: holidays/special occasions only Patient Tobacco Use Status: Former Tobacco user Cigarette Packs Per Day: 1 Years Smoked: 30 e-Cigarette/Vaping Use: Never Used service: No Current occupational status: employed Cognitive needs: Yes Hearing needs: No Vision needs: No Questionnaire PHQ-9 Over the last 2 weeks, how often have you been bothered by any of the following problems? 1. Little interest or pleasure in doing things: not at all 2. Feeling down, depressed, or hopeless: several days 3. Trouble falling or staying asleep, or sleeping too much: several days 4. Feeling tired or having little energy: several days 5. Poor appetite or overeating: several days 6. Feeling bad about yourself - or that you are a failure or have let yourself or your family down: several days 7. Trouble concentrating on things, such as reading the newspaper or watching television: not at all 8. Moving or speaking so slowly that other people could have noticed. Or the opposite - being so fidgety or restless that you have been moving around a lot more than usual: not at all 9. Thoughts that you would be better off or of hurting yourself in some way: not at all Total score: 5 Depression Screening Interpretation: Negative 99830 - PHQ-9 Billing: Yes Source: Developed by Drs. Igor Nagel, Juanita Pulido, Shamar Rust and colleagues, with an educational joseph from [employer]. Thrive Questionnaire Date Thrive assessed: 11/26/22 I am a: Patient What is your living situation today?: I have a steady place to live Within the past 12 months, did the food you bought not last and you didn't have the money to get more?: Never true Within the past 12 months, did you worry whether your food would run out before you got money to buy more?: Never true Do you have trouble paying for medicines?: No Do you have trouble getting transportation to medical appointments?: No Do you have trouble paying your heating and electricity bill?: No Do you have trouble taking care of your child, family member or friend?: No Do you have trouble with day-to-day activities such as bathing, preparing meals, shopping, managing finances, etc.?: No Are you currently unemployed and looking for a job?: No Are you interested in more education?: No AUDIT C Alcohol Use Questionnaire (AUDIT-C) 1. How often do you have a drink containing alcohol?: Monthly or less 2. How many drinks containing alcohol do you have on a typical day when you are drinking?: 1 or 2 3. How often do you have six or more drinks on one occasion?: Never Total Score: 1 Score Reviewed/Action Taken: Yes CARLA-7 AMB Questionnaire CARLA-7 Date CARLA - 7 assessed: 11/26/22 Feeling nervous, anxious, or on edge: 1 = Several days Not being able to stop or control worryin = Several days Worrying too much about different things: 1 = Several days Trouble relaxin = Several days Being so restless that it is hard to sit still: 0 = Not at all Becoming easily annoyed or irritable: 1 = Several days Feeling afraid as if something awful might happen: 0 = Not at all Total CARLA-7 score (0-4 normal; 5-9 mild; 10-14 moderate; 15-21 severe): 5 Source: Developed by Drs. Igor Nagel, Juanita Pulido, Shamar Rust and colleagues, with an educational joseph from [employer]. CARLA-7 Assessment Billing CARLA-7 Assessment Tool: CARLA-7 Assessment 67109 Review of Systems Const Denies chills and Denies fever(s) ENT Denies epistaxis and Denies nasal discharge Card Denies chest pain Resp Denies chest congestion, Denies cough and Denies hemoptysis GI Denies diarrhea Skin/Breast Denies rash Neuro Reports no additional complaints Psych Reports no additional complaints Endo Reports no additional complaints Physical exam (Primary Care) Vital Signs: Last Vital Signs Pulse 86 11/26/22 13:04 BP 124/76 11/26/22 13:04 Pulse Ox 97 11/26/22 13:04 Oxygen Delivery Method Room Air 11/26/22 13:04 BMI result Body Mass Index 35.9 Tobacco/Smoking Status: Tobacco use Status Tobacco use date assessed 11/26/22 11/26/22 13:08 Patient Tobacco Use Status Former Tobacco user 11/26/22 13:08 e-Cigarette/Vaping Use Never Used 11/26/22 13:08 PHQ-9: PHQ-9 Score PHQ-9: Total score 5 11/26/22 13:31 Depression Screening Interpretation: Negative Thrive Assessment: Date of Thrive Assessment Date Thrive assessed 11/26/22 11/26/22 13:31 Const General: cooperative, comfortable and no acute distress Orientation/consciousness: patient oriented x3 HENMT Head: Yes normocephalic Eyes General: appearance normal, both eyes and all related structures Neck Neck: Yes supple Resp Effort & Inspection: normal respiratory effort, no cough and no stridor Cardio Rhythm: regular rhythm Heart sounds: S1 normal heart sound present and S2 normal heart sound present Skin General skin exam: turgor normal Neuro General: patient oriented x3, tone normal and moves all extremities Extrem Right lower extremity: no edema Left lower extremity: no edema Assessment and Plan Assessment & Plan (1) Depression, major, recurrent, in partial remission: Code(s): F33.41 - Major depressive disorder, recurrent, in partial remission (2) Anxiety, generalized: Code(s): F41.1 - Generalized anxiety disorder (3) Lipid disorder: Code(s): E78.9 - Disorder of lipoprotein metabolism, unspecified (4) Obesity: Comment: patient is trying to lose has lost 10 lb since October Code(s): E66.9 - Obesity, unspecified Qualifiers: Body mass index: BMI 32.0-32.9 Obesity classification: adult class 1 (BMI 30 - 34.9) Obesity type: due to excess calories Serious obesity comorbidity presence: with serious comorbidity Qualified Code(s): E66.09 - Other obesity due to excess calories; Z68.32 - Body mass index [BMI] 32.0-32.9, adult (5) LFT elevation: Code(s): R79.89 - Other specified abnormal findings of blood chemistry (6) Bloating: Code(s): R14.0 - Abdominal distension (gaseous) Plan Patient is 47-year-old female came in today for follow-up appointment Anxiety: Patient has started taking buspirone she is feeling better she will introduce another tablet currently she is only taking 1 or 2. She could not tolerate pantoprazole so she went back to omeprazole. We talked about diet today I would recommend for her to eliminate dairy from her diet and see if her bloating gets better Also to keep a food diary. She has an appointment with review appraiser and this month discuss colonoscopy. Labs done recently reviewed with the patient her ease teen ALT is mildly elevated will continue to monitor that LDL is 151 we discussed that as well I will book her appointment with the dietitian to further discuss diet restrictions. BMI is elevated patient is trying to lose weight. She will return in 3 months for follow-up appointment. Coding Level of Care Code Est Pt Level 4 (05127) Diagnoses Depression, major, recurrent, in partial remission F33.41 Anxiety, generalized F41.1 Lipid disorder E78.9 Obesity E66.09; Z68.32 Body mass index: BMI 32.0-32.9 Obesity classification: adult class 1 (BMI 30 - 34.9) Obesity type: due to excess calories Serious obesity comorbidity presence: with serious comorbidity LFT elevation R79.89 Bloating R14.0 Additional Codes CARLA-7 Assessment Billing - CARLA-7 Assessment Tool: CARLA-7 Assessment [id number] ([id number])
== END 2022-11-26 13:59 | disposition home or self-care (01) ==
PROVIDERS: PCP Internal Medicine; Visit Provider Internal Medicine
DX: F33.41 Major depressive disorder, recurrent, in partial remission (principal); F41.1 Generalized anxiety disorder; E66.09 Other obesity due to excess calories; Z68.32 Body mass index [BMI] 32.0-32.9, adult; E78.9 Disorder of lipoprotein metabolism, unspecified; R79.89 Other specified abnormal findings of blood chemistry; R14.0 Abdominal distension (gaseous)
CPT/HCPCS: 99214

== ENCOUNTER 2022-12-02 11:04 | Outpatient (AMB) | payer OTHER, MEDICAID, SELFPAY ==
[2022-12-02 11:10] VITALS: BP 151/85; PULSE 84; BMI 35.3
--- NOTE | 2022-12-02 11:10 | A.OFFVIS_ITS ---
Intake Vital Signs 12/02/22 11:10 Height 5 ft 8 in Weight 232 lb 5.875 oz BMI 35.3 BP 151/85 H Blood Pressure Location Lt brachial Position Sitting Pulse 84 Intake Visit Reasons: Colonoscopy Screening Intake Note: Saira presents in office as a new.patient for a colonoscopy screening PT CC: pt reports having abdominal discomfort , bloating , nausea, GERD , hx of poly in family pt denies any other GI Issues [employer] Required: No Accompanied by: Self / Same As Patient Allergies Penicillins [PCN] Allergy (Unknown, Verified 12/02/22 11:12) RASH Medication List - Last Reviewed 12/02/22 by Enrico Khan bupropion HCl (Wellbutrin SR) 150 mg PO BID 90 days buspirone 5 mg PO BID PRN 30 days omega 1-kta-vuk-fish oil 1,000 mg (120 mg-180 mg) (Fish Oil) 1 cap PO DAILY omeprazole 20 mg PO DAILY HPI HPI Comments History of Present Illness Details A 47-year-old female referred for index screening colonoscopy, family history of colon polyps ( sister < 50).? aunt hx colon cancer- She presents with GERD abdominal bloating.Unable to ID anything specific-Omeprazole 20 mg qd Bloating- sees ST[facility]- - no issues Difficulty losing weight- she has made dietary modifications- No N/V/D- abdominal pain- fever or chills PFSH Medical History Anxiety, generalized Breast calcification, left Depression, major, recurrent, in partial remission Environmental allergies Goiter HLD (hyperlipidemia) Lipid disorder Obesity Vitamin D deficiency Surgical History History of section History of lumbar surgery Family History Father HTN (hypertension) CHF (congestive heart failure) CVD (cardiovascular disease) Hypercholesterolemia Hx of CABG Myocardial infarction Mother Osteoporosis HTN (hypertension) Brother HTN (hypertension) Hypercholesterolemia Social History Housing: House Alcohol intake: current Alcohol intake frequency: holidays/special occasions only Patient Tobacco Use Status: Former Tobacco user Cigarette Packs Per Day: 1 Years Smoked: 30 e-Cigarette/Vaping Use: Never Used service: No Current occupational status: employed Cognitive needs: Yes Hearing needs: No Vision needs: No Review of Systems Const All systems reviewed & are unremarkable except as noted in HPI and below Card Denies chest pain and Denies dyspnea Resp Denies dyspnea GI Reports bloating, Reports heartburn, Denies nausea and Denies vomiting Physical Exam Vital Signs: Last Vital Signs Pulse 84 12/02/22 11:10 BP 151/85 H 12/02/22 11:10 BMI result Body Mass Index 35.3 Const General: cooperative, healthy appearing, comfortable and no acute distress Orientation/consciousness: patient oriented x3 Limitations: no limitations Eyes Sclerae: sclerae normal Resp Effort & Inspection: normal respiratory effort and able to speak in complete sentences Auscultation: clear to auscultation bilaterally and no wheezes Cardio Rate: regular rate Rhythm: regular rhythm Heart sounds: S1 normal heart sound present and S2 normal heart sound present GI Palpation (GI): Soft to palpation and nontender Auscultation: normal bowel sounds Skin General skin exam: no rashes or lesions noted Neuro General: patient oriented x3 Extrem General: Yes full ROM Psych Appearance: grossly normal and well kempt Mental Status: mental status grossly normal Speech and movement: Normal speech and movement present and Clear speech present Affect: normal affect and Anxious affect present Attitude: cooperative Thought process: Normal thought process present Thought content: Normal thought content present Insight: Good insight present (Psych) Judgement: Good judgement present (Psych) Assessment & Plan Assessment & Plan (1) Bloating: Code(s): R14.0 - Abdominal distension (gaseous) Plan: [employer] Cont. to f/u with ST[facility] P[facility] MAKER (2) Encounter for colonoscopy in patient with family history of colon polyps: Comment: sister< 50, adenomas Code(s): Z12.11 - Encounter for screening for malignant neoplasm of colon; Z83.71 - Family history of colonic polyps (3) Encounter for screening colonoscopy: Code(s): Z12.11 - Encounter for screening for malignant neoplasm of colon Plan: colonoscopy (4) Chronic GERD: Code(s): K21.9 - Gastro-esophageal reflux disease without esophagitis Plan: Cont ppi Reflux precautions Plan EGD and colonoscopy MiraLax Gatorade split prep Orders: Orders EGD/[place] [facility] - GI Use Only 12/02/22 Medications: New bisacodyl (Dulcolax (bisacodyl)) Take 4 tablets by mouth at 12:00pm the day before your procedure. 20 mg (4 x 5 mg) PO ONCE 1 day 4 tabs 0RF colonoscopy prep Z12.11 - Encounter for screening for malignant neoplasm of colon polyethylene glycol 3350 (Miralax) Take as directed by mouth the day before your procedure. 238 grams PO ONCE 1 day PRN 238 grams 0RF laxative effect Patient Instructions: A rohit pleasant 47 y/o female- Gerd, bloating- Fam hx colon polyps-due for index screening colonoscopy Cont ppi Reflux precautions Fodmap diet EGD/ colonoscopy-discussed rare risks- MG prep- need for escort- Call with concerns Coding Level of Care Code New Pt Level 3 (13091) Diagnoses Bloating R14.0 Encounter for colonoscopy in patient with family history of colon polyps Z12.11; Z83.71 Encounter for screening colonoscopy Z12.11 Chronic GERD K21.9 Time Spent (min) 35
== END 2022-12-02 12:33 | disposition home or self-care (01) ==
PROVIDERS: PCP Internal Medicine; Visit Provider Physician Assistant
DX: R14.0 Abdominal distension (gaseous) (principal); Z12.11 Encounter for screening for malignant neoplasm of colon; Z83.71 Family history of colonic polyps; K21.9 Gastro-esophageal reflux disease without esophagitis
CPT/HCPCS: 99203

== ENCOUNTER → 2022-12-02 11:04 | Outpatient (BNVA) | payer OTHER, MEDICAID, SELFPAY | PROVIDERS: PCP Internal Medicine; Visit Provider Physician Assistant ==

== ENCOUNTER 2023-02-28 09:10 | Day surgery (SDC) | payer OTHER, MEDICAID, SELFPAY ==
[2023-02-22 14:13] VITALS: BMI 35.3
--- NOTE | 2023-02-23 09:33 | HO.ANESPROP2 ---
HPI - Anesthesia Eval Consult details Narrative: 47yo F for Upper Endoscopy and Colonoscopy [facility] Active Problems Active Problems: All Active Problems (Updated 12/07/22 @ 10:18 by Alisha Venegas PA-C) Chronic GERD (Acute) Encounter for screening colonoscopy (Acute) Encounter for colonoscopy in patient with family history of colon polyps (Acute) Mood swings (Acute) Bloating (Acute) Colon cancer screening (Acute) Cervical radiculopathy (Acute) Major depression, recurrent (Acute) Impaired fasting blood sugar (Acute) Cervical radicular pain (Acute) Obesity due to excess calories (Acute) Palpitations (Acute) Thrombocytopenia (Acute) Hepatic steatosis (Acute) LFT elevation (Acute) Right upper quadrant pain (Acute) Obesity due to excess calories (Acute) Encounter for general adult medical examination with abnormal findings (Acute) Vitamin D deficiency (Acute) Goiter (Acute) HLD (hyperlipidemia) (Acute) Breast calcification, left (Acute) Obesity (Acute) Environmental allergies (Acute) Lipid disorder (Acute) Anxiety, generalized (Acute) Depression, major, recurrent, in partial remission (Acute) Past Medical History Medical History (Updated 12/07/22 @ 10:18 by Alisha Venegas PA-C) Vitamin D deficiency Goiter HLD (hyperlipidemia) Breast calcification, left Obesity Environmental allergies Lipid disorder Anxiety, generalized Depression, major, recurrent, in partial remission Family History Family History Father HTN (hypertension) CHF (congestive heart failure) CVD (cardiovascular disease) Hypercholesterolemia Hx of CABG Myocardial infarction Mother Osteoporosis HTN (hypertension) Brother HTN (hypertension) Hypercholesterolemia Surgical History Surgical History (Updated 03/07/23 @ 15:14 by Rebecca Sullivan) History of esophagogastroduodenoscopy (EGD) Hx of colonoscopy History of lumbar surgery History of section Social History Social History Housing: House Alcohol intake: current Alcohol intake frequency: holidays/special occasions only Patient Tobacco Use Status: Former Tobacco user Cigarette Packs Per Day: 1 Years Smoked: 30 e-Cigarette/Vaping Use: Never Used service: No Current occupational status: employed Cognitive needs: Yes Hearing needs: No Vision needs: No Meds Allergies Allergy/AdvReac Type Severity Reaction Status Date / Time Penicillins [PCN] Allergy Intermediate RASH Verified 02/22/23 14:10 Home Medications Medication Instructions Recorded Confirmed Last Taken Type omega 9-gcx-efh-fish oil 1,000 mg 1 cap PO DAILY 05/07/20 02/22/23 Unknown History (120 mg-180 mg) capsule (Fish Oil) omeprazole 20 mg capsule,delayed 20 mg PO DAILY 12/02/22 02/22/23 Unknown History release Exam Height,Weight and Vital Signs: Height 5 ft 8 in Weight 105.233 kg Pertinent Lab Results Pertinent Lab Results: Laboratory Tests 11/18/22 10:41 WBC 8.0 Hgb 14.5 Hct 41.3 Plt Count 140 L Sodium 139 Potassium 4.7 Chloride 108 Carbon Dioxide 26 BUN 11 Creatinine 0.73 Assessment and Plan Assessment Anesthesia Assessment: Chart Reviewed
--- NOTE | 2023-02-28 09:11 | MHC.SHP ---
Pre-Procedural Eval Section A Date of Service: 02/28/23 The patient is an INPATIENT: No The History & Physical has been completed within 30 days and I have reviewed it.: No Section B Chief Complaint: Polyp surveillance, GERD, abdominal bloating, n Relevant Family History (Specify if Yes): Yes Relevant Social History: Tobacco Use (former smoker) Present Medications: see Short Stay Collaborative assessment Medical History: Significant History (Anxiety, generalized Breast calcification, left Depression, major, recurrent, in partial remission Environmental allergies Goiter HLD (hyperlipidemia) Lipid disorder Obesity Vitamin D deficiency) History of Previous Operations: Relevant previous surgery/procedure and date(s) (History of section History of lumbar surgery) Allergies: Allergies Allergy/AdvReac Type Severity Reaction Status Date / Time Penicillins [PCN] Allergy Intermediate RASH Verified 02/22/23 14:10 Review of Systems Sugical H&P ROS: Negative: Constitution, Cardiovascular, Respiratory and Gastrointestinal Exam Surgical H&P Exam: Normal: Heart, Normal: Lungs, Normal: Extremities and Normal: Abdomen Plan Diagnosis/Plan: Unchanged I have reviewed the history and physical and performed a pertinent physical examination on my patient. No changes have occurred unless specified. Time Spent With Patient Time: Total time managing care of this patient today ____ minutes.
--- NOTE | 2023-02-28 09:26 | P.CONAN_ITS ---
[facility] Active Problems Active Problems: All Active Problems (Updated 12/07/22 @ 10:18 by Alisha Venegas PA-C) Chronic GERD (Acute) Encounter for screening colonoscopy (Acute) Encounter for colonoscopy in patient with family history of colon polyps (Acute) Mood swings (Acute) Bloating (Acute) Colon cancer screening (Acute) Cervical radiculopathy (Acute) Major depression, recurrent (Acute) Impaired fasting blood sugar (Acute) Cervical radicular pain (Acute) Obesity due to excess calories (Acute) Palpitations (Acute) Thrombocytopenia (Acute) Hepatic steatosis (Acute) LFT elevation (Acute) Right upper quadrant pain (Acute) Obesity due to excess calories (Acute) Encounter for general adult medical examination with abnormal findings (Acute) Vitamin D deficiency (Acute) Goiter (Acute) HLD (hyperlipidemia) (Acute) Breast calcification, left (Acute) Obesity (Acute) Environmental allergies (Acute) Lipid disorder (Acute) Anxiety, generalized (Acute) Depression, major, recurrent, in partial remission (Acute) Past Medical History Medical History Anxiety, generalized Breast calcification, left Depression, major, recurrent, in partial remission Environmental allergies Goiter HLD (hyperlipidemia) Lipid disorder Obesity Vitamin D deficiency Family History Family History Father HTN (hypertension) CHF (congestive heart failure) CVD (cardiovascular disease) Hypercholesterolemia Hx of CABG Myocardial infarction Mother Osteoporosis HTN (hypertension) Brother HTN (hypertension) Hypercholesterolemia Family history of problems with anesthesia: No Surgical History Surgical History History of section History of lumbar surgery History of Problems with Anesthesia: No Social History Housing: House Alcohol intake: current Alcohol intake frequency: holidays/special occasions only Patient Tobacco Use Status: Former Tobacco user Cigarette Packs Per Day: 1 Years Smoked: 30 e-Cigarette/Vaping Use: Never Used Advance Directives: No Advance Directives Information Provided: Yes service: No Current occupational status: employed Cognitive needs: Yes Hearing needs: No Vision needs: No Meds Allergies Allergy/AdvReac Type Severity Reaction Status Date / Time Penicillins [PCN] Allergy Intermediate RASH Verified 02/22/23 14:10 Active Medications: Current Medications Lactated Ringer's (Lr) 1,000 mls @ 100 mls/hr IVCONT .Q10H QUYNH Home Medications Medication Instructions Recorded Confirmed Last Taken Type omega 0-zgc-uxy-fish oil 1,000 mg 1 cap PO DAILY 05/07/20 02/22/23 Unknown History (120 mg-180 mg) capsule (Fish Oil) omeprazole 20 mg capsule,delayed 20 mg PO DAILY 12/02/22 02/22/23 Unknown His tory release Exam Height,Weight and Vital Signs: Height 5 ft 8 in Weight 105.233 kg Airway Mallampati Class: II TM Dist: >3cm Neck ROM: Full Heart: rrr Lungs: cta Assessment and Plan Assessment Anesthesia Assessment: Anesthesia Plan Discussed and Chart Reviewed Final Anesthetic Review Family History of Problems with Anesthesia: No History of Problems with Anesthesia: No NPO: Yes ASA Class: III Final Preanesthetic Review: No Changes in Pt Med Stat, Meds/Allgs Chart Reviewed and Consent Obtained/Reviewed Patient Risk: Intermediate Procedure Risk: Intermediate Anesthetic Plan Anesthetic Plan: MAC: Disposition: Standard PACU
[2023-02-28 09:31] VITALS: BP 158/100; PULSE 93; RESP 16; TEMP 36.2; O2SAT 97
[2023-02-28 09:33] LABS: UPreg QC Valid YES; Urine Pregnancy NEGATIVE (NEGATIVE)
--- NOTE | 2023-02-28 09:46 | W.PM.OPN ---
Operative Note Operative Note Date of Service: 02/28/23 Narrative: FLEXIBLE TRANSORAL UPPER GASTROINTESTINAL ENDOSCOPY WITH BIOPSIES AND COLONOSCOPY TILL CECUM WITH BIOPSIES, SNARE POLYPECTOMY AND SUBMUCOSAL INJECTION Pre-op diagnosis: screening, GERD, dyspepsia, nausea Post-op diagnosis: GERD, Gastritis, gastric polyp, colon polyps, hemorrhoids Endoscopist:? Pierre Castañeda MD Anesthesia:?MAC UPPER ENDOSCOPY Consent: Indications for the procedure and potential complications of bleeding, perforation, reaction to medications and missed diagnosis were discussed with the patient and informed consent was obtained. Instrument: Olympus GIF H 190 mid size upper endoscope Monitoring: Vital signs and clinical assessment, continuous EKG monitoring, Pulse oximetry, Carbon Dioxide monitoring and blood pressure monitoring were done throughout the procedure. Procedure: The patient was placed in the left lateral decubitis position and pre-procedure medications were administered and a bite block was placed. The endoscope was inserted into the mouth and advanced under direct vision to the third part of duodenum. A careful inspection was made as the upper endoscope was withdrawn including a retroflexed examination of the proximal stomach; Findings and interventions are described below. Findings: Larynx: Normal Esophagus: GE junction at 40 cms. Edematous folds on the gastric side of GE junction - biopsied. Stomach: One 5-6 mm sessile polyp in the gastric body along the lesser curve - biopsied. Minimal gastric erythema. Biopsies were obtained. Grade 2 flap valve on retroflexed examination of the cardia. Duodenum: Normal bulb and descending duodenum. Biopsies were obtained from the 3rd part of the duodenum to check for celiac sprue Intervention: Biopsies as noted above COLONOSCOPY PROCEDURE NOTE Consent: Indications for the procedure and potential complications of bleeding, perforation, reaction to medications and missed diagnosis were discussed with the patient and informed consent was obtained. Instrument: Olympus PCF H 190 L variable stiffness pediatric colonoscope Monitoring: Vital signs and clinical assessment, intermittent blood pressure monitoring, continuous EKG monitoring, Pulse oximetry and Carbon Dioxide monitoring were done throughout the procedure. Colon withdrawl time was 20 minutes. Procedure: The patient was placed in the left lateral decubitis position and pre-procedure medications were administered. After a digital rectal examination of the ano-rectum, the video colonoscope was inserted into the rectum and advanced through the colon to the cecum. The colonoscope was slowly withdrawn in a retrograde panoramic fashion and the colon mucosa was carefully examined including a retroflexed view of the rectum. Findings and interventions are described below. Procedure Difficulty: Without difficulty Findings: Terminal Ileum: Not evaluated Cecum: Normal Ascending Colon: A 2-3 mm diminutive appearing polyp at the hepatic flexure- removed with a cold biopsy Transverse Colon: A 12-15 mm flat polyp at 110 cms. Polyp was raised with 3 cc of Eleview and removed with a hot snare. Polypectomy site was marked with Brigette ink. Descending Colon: Normal Sigmoid Colon: Normal Rectum: A 4-5 mm diminutive appearing polyp on retroflexed exam - biopsied. Ano-rectum: Moderate internal hemorrhoids Colon preparation: Excellent Impression and Post Procedure Diagnosis: Endoscopy Findings: ESOPHAGUS: GE junction at 40 cms. Edematous folds on the gastric side of GE junction - biopsied. STOMACH: Minimal gastritis and a small gastric polyp DUODENUM: Normal - biopsied to check for celiac sprue Colonoscopy Findings: One medium sized and two small polyps removed Moderate hemorrhoids on retroflexed exam. Plan: Await pathology results Patient has an appointment on 03/14/23 in the GI Clinic with ARMEN Ng. Repeat Colonoscopy interval based on path results - in 3-5 years if polyps are adenomatous and 10 years if polyps are hyperplastic. Above findings were reviewed with the patient and gastric polyps, colon polyps handouts were given in the discharge area
[2023-02-28 10:35] VITALS: BP 105/59; PULSE 76; RESP 16; TEMP 36.2; O2SAT 97
[2023-02-28 10:50] VITALS: BP 128/86; PULSE 72; RESP 16; TEMP 36.2; O2SAT 97
== END 2023-02-28 11:20 | disposition home or self-care (01) ==
PROVIDERS: Nurse Practitioner; PCP Internal Medicine; Visit Provider Internal Medicine Gastroenterology
PROC: (CPT 45385; principal; 2023-02-28 10:50)
DX: Z12.11 Encounter for screening for malignant neoplasm of colon (principal); Z83.719 Family history of colon polyps, unspecified; D12.3 Benign neoplasm of transverse colon; K63.5 Polyp of colon; K62.1 Rectal polyp; K64.8 Other hemorrhoids; K21.9 Gastro-esophageal reflux disease without esophagitis; K29.70 Gastritis, unspecified, without bleeding; K31.7 Polyp of stomach and duodenum; E78.5 Hyperlipidemia, unspecified; E04.9 Nontoxic goiter, unspecified; E55.9 Vitamin D deficiency, unspecified; E66.9 Obesity, unspecified; Z68.35 Body mass index [BMI] 35.0-35.9, adult; F33.41 Major depressive disorder, recurrent, in partial remission; F41.9 Anxiety disorder, unspecified; Z79.899 Other long term (current) drug therapy; Z88.0 Allergy status to penicillin; Z91.09 Other allergy status, other than to drugs and biological substances; Z87.891 Personal history of nicotine dependence
CPT/HCPCS: 45385; 45380; 45381; 81025; 88305; 88342; J2704

== ENCOUNTER → 2023-02-28 09:10 | Outpatient (BNV) | payer OTHER, MEDICAID, SELFPAY | PROVIDERS: PCP Internal Medicine; Visit Provider Internal Medicine Gastroenterology | DX: Z12.11 Encounter for screening for malignant neoplasm of colon (principal); K63.5 Polyp of colon; K64.8 Other hemorrhoids; K29.70 Gastritis, unspecified, without bleeding; K31.7 Polyp of stomach and duodenum; K21.9 Gastro-esophageal reflux disease without esophagitis | CPT/HCPCS: 43239; 45380; 45381; 45385 ==

== ENCOUNTER 2023-03-14 08:01 | Outpatient (AMB) | payer OTHER, MEDICAID, SELFPAY ==
--- NOTE | 2023-03-14 08:07 | A.OFFVIS_ITS ---
Intake Vital Signs 03/14/23 08:12 Height 5 ft 8 in Weight 220 lb 7.396 oz BMI 33.5 BP 129/73 Blood Pressure Location Lt brachial Position Sitting Pulse 68 Intake Visit Reasons: S/p colon Garry Intake Note: Saira presents in the office as a follow up to her EGD and COLO CC: No concerns today! Magnetic Healer Required: No Allergies Penicillins [PCN] Allergy (Intermediate, Verified 03/14/23 08:12) RASH HPI HPI Comments History of Present Illness Details A very pleasant 47-year-old female follows up after recent EGD colonoscopy -she has abdominal bloating, unable to identify anything specific. She does get heartburn currently not taking any medication she has taken omeprazole/pantoprazole in the past without benefit No other general complaints. She tolerated procedures well Reviewed procedure report, pathology and recommendation Also review of her full record elevated liver enzymes, history of splenic cyst, fatty liver- we addressed all of the above, will plan accordingly Appetite is good Bowels are fairly normal No nausea, vomiting, hematemesis, hematochezia fever chills PFSH Medical History Vitamin D deficiency Goiter HLD (hyperlipidemia) Breast calcification, left Obesity Environmental allergies Lipid disorder Anxiety, generalized Depression, major, recurrent, in partial remission Surgical History History of esophagogastroduodenoscopy (EGD) Hx of colonoscopy History of lumbar surgery History of section Family History Father HTN (hypertension) CHF (congestive heart failure) CVD (cardiovascular disease) Hypercholesterolemia Hx of CABG Myocardial infarction Mother Osteoporosis HTN (hypertension) Brother HTN (hypertension) Hypercholesterolemia Paternal Grandfather Colon cancer Social History Housing: House Alcohol intake: current Alcohol intake frequency: holidays/special occasions only Patient Tobacco Use Status: Former Tobacco user Cigarette Packs Per Day: 1 Years Smoked: 30 e-Cigarette/Vaping Use: Never Used service: No Current occupational status: employed Cognitive needs: Yes Hearing needs: No Vision needs: No Review of Systems Const All systems reviewed & are unremarkable except as noted in HPI and below Card Denies chest pain and Denies dyspnea Resp Denies dyspnea GI Denies abdominal pain, Reports bloating, Denies hematochezia, Reports heartburn, Denies nausea and Denies vomiting Physical Exam Vital Signs: Last Vital Signs Pulse 68 03/14/23 08:12 BP 129/73 03/14/23 08:12 BMI result Body Mass Index 33.5 Const General: cooperative, healthy appearing, comfortable and no acute distress Orientation/consciousness: patient oriented x3 Limitations: no limitations Eyes Sclerae: sclerae normal Resp Effort & Inspection: normal respiratory effort and able to speak in complete sentences Skin General skin exam: no rashes or lesions noted Neuro General: patient oriented x3 Extrem General: Yes full ROM Psych Appearance: grossly normal and well kempt Mental Status: mental status grossly normal Speech and movement: Normal speech and movement present and Clear speech present Affect: normal affect Attitude: cooperative Thought process: Normal thought process present Thought content: Normal thought content present Results Reviewed Results Reviewed: Impression and Post Procedure Diagnosis: Endoscopy Findings: ESOPHAGUS: GE junction at 40 cms. Edematous folds on the gastric side of GE junction - biopsied. STOMACH: Minimal gastritis and a small gastric polyp DUODENUM: Normal - biopsied to check for celiac sprue Colonoscopy Findings: One medium sized and two small polyps removed Moderate hemorrhoids on retroflexed exam. Plan: Await pathology results Patient has an appointment on 03/14/23 in the GI Clinic with ARMEN Ng. Repeat Colonoscopy interval based on path results - in 3-5 years if polyps are adenomatous and 10 years if polyps are hyperplastic. Above findings were reviewed with the patient and gastric polyps, colon polyps handouts were given in the discharge area Name: Saira Erazo Age/Sex: 47/F Attending: Pierre Castañeda MD : 1975 Submitted by: Pierre Castañeda MD Copies to: Debbie Lozada MD MR #: [id number] Status: [facility] Collected: 02/28/23 Location: [facility] Received: 02/28/23 Diagnosis A. Small bowel, biopsy: Small bowel mucosa with no diagnostic abnormality; preserved villous architecture and no increase in intraepithelial lymphocytes; no evidence of active inflammation, foveolar metaplasia or dysplasia. B. Stomach, antrum, biopsy: Gastric mucosa with no diagnostic alteration; no evidence of H. pylori, intestinal metaplasia or dysplasia. C. Stomach, biopsy of polyp: Fundic gland polyp; no evidence of H. pylori, intestinal metaplasia or dysplasia. D. Gastroesophageal junction, biopsy: Inflamed squamoglandular junctional mucosa with reactive changes, no evidence of intestinal metaplasia or dysplasia. E. Colon, hepatic flexure, polypectomy: Colonic mucosa with mild surface hyperplastic changes, no evidence of adenoma. F. Colon, transverse colon at 110 cm, polypectomy: Tubular adenoma; negative for high-grade epithelial dysplasia/invasive carcinoma. G. Rectum, polypectomy: Hyperplastic polyp. Clinical History Pre-Op Dx: Screening, dyspepsia Post-Op Dx: Upper: GERD, gastric polyp, gastritis; Lower: colon polyps Microscopic Description Microscopic sections reviewed. Helicobacter pylori immunostains performed on parts B and C are negative. Material Received A. Bx small bowel (r/o Celiac disease) B. Bx gastric antrum (r/o H. pylori) C. Bx gastric polyp D. Bx GE junction E. Polyp hepatic flexure F. Polyp transverse colon 110 cm G. Polyp rectum Gross Description Received in 7 parts. Part A: Received in formalin labeled ?small bowel biopsy? 2 pieces of hallman tissue both measuring 0.1 cm, Patient: Saira Erazo Age/Sex: 47/F MR#: [id number] Page 1 of 2 US/US abdomen complete IMPRESSION: Enlarged echogenic liver probably representing fatty infiltration. Normal-appearing gallbladder. 7.5 x 7.6 cm probable complex cyst splenic cyst. This is similar in size to old CT scans from 2013 and 2010. Limited visualization of the pancreas. Assessment & Plan Assessment & Plan (1) Tubular adenoma of colon: Comment: A very pleasant 47-year-old female follows up- Code(s): D12.6 - Benign neoplasm of colon, unspecified Plan: 3 yr asymptomatic repeat colonoscopy AFDR- by age 40 (2) Chronic GERD: Comment: Review reflux precautions Code(s): K21.9 - Gastro-esophageal reflux disease without esophagitis Plan: avoid culprits She will give trial to Famotidine- 40mg (3) Hepatic steatosis: Comment: Elevation liver enzymes likely fatty liver Code(s): K76.0 - Fatty (change of) liver, not elsewhere classified Plan: Review L/S change (4) Splenic cyst: Comment: F/u w/ BH- last imagined 2015 Code(s): D73.4 - Cyst of spleen Plan: - CT years ago (5) Elevated liver enzymes: Code(s): R74.8 - Abnormal levels of other serum enzymes Plan: Repeat enzymes Orders: Orders Complete Blood Count Auto Diff Today D73.4 - Cyst of spleen, K76.0 - Fatty (change of) liver, not elsewhere classified, R74.8 - Abnormal levels of other serum enzymes CT abdomen pelvis w IV con Today D73.4 - Cyst of spleen, K76.0 - Fatty (change of) liver, not elsewhere classified, R74.8 - Abnormal levels of other serum enzymes Hepatitis A,B,C Profile Today R79.89 - Other specified abnormal findings of blood chemistry PAOLA Reflex Titer and Pattern Today R74.01 - Elevation of levels of liver transaminase levels Medications: New barium sulfate 2%(w/v) (Readi-Cat 2) 450 mL PO DIRECTED 1 day 900 mL 0RF famotidine 40 mg PO DAILY 30 tabs 5RF Patient Instructions: 3 year repeat asymptomatic colonoscopy All first-degree relatives begin screening at by age 40 After review of chart she is agreeable to rechecking liver enzymes Abdominal CT further eval of splenic cyst Fatty liver, discuss lifestyle change Should maintain good glucose, cholesterol and weight Reviewed acid reflux precautions She will give trial to famotidine 40 mg daily Will follow-up plan of care dependent on above Coding Level of Care Code Est Pt Level 4 (21560) Diagnoses Tubular adenoma of colon D12.6 Chronic GERD K21.9 Hepatic steatosis K76.0 Splenic cyst D73.4 Elevated liver enzymes R74.8 Time Spent (min) 45
[2023-03-14 08:12] VITALS: BP 129/73; PULSE 68; BMI 33.5
== END 2023-03-14 08:58 | disposition home or self-care (01) ==
PROVIDERS: PCP Internal Medicine; Visit Provider Physician Assistant
DX: D12.6 Benign neoplasm of colon, unspecified (principal); K21.9 Gastro-esophageal reflux disease without esophagitis; K76.0 Fatty (change of) liver, not elsewhere classified; D73.4 Cyst of spleen; R74.8 Abnormal levels of other serum enzymes
CPT/HCPCS: 99214

== ENCOUNTER → 2023-03-14 08:01 | Outpatient (BNVA) | payer OTHER, MEDICAID, SELFPAY | PROVIDERS: PCP Internal Medicine; Visit Provider Physician Assistant ==

== ENCOUNTER 2023-03-17 09:10 | Outpatient (AMB) | payer OTHER, MEDICAID, SELFPAY ==
--- NOTE | 2023-03-17 09:33 | MHC.PC.OV ---
Intake Visit Reasons: Personal Concerns ~ Allergies Penicillins [PCN] Allergy (Intermediate, Verified 03/17/23 09:39) RASH Medication List - Last Reconciled 03/17/23 by Debbie Lozada MD barium sulfate 2%(w/v) (Readi-Cat 2) 450 mL PO DIRECTED 1 day bupropion HCl (Wellbutrin SR) 150 mg PO BID 90 days buspirone 5 mg PO BID PRN 30 days famotidine 40 mg PO DAILY gabapentin 100 mg PO DAILY omega 0-npk-gpy-fish oil 1,000 mg (120 mg-180 mg) (Fish Oil) 1 cap PO DAILY Tobacco use date assessed: 03/17/23 Dental Screening Dental Screen Date: 03/17/23 Did you have a dental visit in the last 12 months?: Yes Did you have a dental problem in the last 6 months where you did not have access to dental care?: No Was dental information given to patient?: Patient has dentist HPI Personal Concerns ~ HPI Details Patient has been feeling more depressed and anxious for past few days she is not sure if its due to menopausal hormonal changes Patient states that she get irritated easily and is feeling anxious most of the time She does have a stressful job as well She has done well with Wellbutrin and buspirone 5 mg b.i.d. so far She agree to take venlafaxine small dose today, patient was reluctant to take that because it interfered with her libido I am also increasing BuSpar to 10 mg b.i.d. Patient does have thrombocytopenia as well we will be repeating CBC and metabolic profile to monitor liver functions She has already seeing Gastroenterology for that. Patient have IUD Mirena and she is established with OBGYN [facility] Medical History Vitamin D deficiency Goiter HLD (hyperlipidemia) Breast calcification, left Obesity Environmental allergies Lipid disorder Anxiety, generalized Depression, major, recurrent, in partial remission Surgical History History of esophagogastroduodenoscopy (EGD) Hx of colonoscopy History of lumbar surgery History of section Family History Father HTN (hypertension) CHF (congestive heart failure) CVD (cardiovascular disease) Hypercholesterolemia Hx of CABG Myocardial infarction Mother Osteoporosis HTN (hypertension) Brother HTN (hypertension) Hypercholesterolemia Paternal Grandfather Colon cancer Social History Housing: House Alcohol intake: current Alcohol intake frequency: holidays/special occasions only Patient Tobacco Use Status: Former Tobacco user Cigarette Packs Per Day: 1 Years Smoked: 30 e-Cigarette/Vaping Use: Never Used service: No Current occupational status: employed Cognitive needs: Yes Hearing needs: No Vision needs: No Questionnaire Thrive Questionnaire Date Thrive assessed: 11/26/22 AUDIT C Alcohol Use Questionnaire (AUDIT-C) 1. How often do you have a drink containing alcohol?: Monthly or less 2. How many drinks containing alcohol do you have on a typical day when you are drinking?: 1 or 2 3. How often do you have six or more drinks on one occasion?: Never Total Score: 1 Score Reviewed/Action Taken: Yes CARLA-7 AMB Questionnaire CARLA-7 Date CARLA - 7 assessed: 11/26/22 Source: Developed by Drs. Igor Nagel, Juanita Pulido, Shamar Rust and colleagues, with an educational joseph from [employer] Review of Systems Const Denies chills and Denies fever(s) ENT Denies epistaxis and Denies nasal discharge Card Denies chest pain Resp Denies chest congestion, Denies cough and Denies hemoptysis GI Denies diarrhea Skin/Breast Denies rash Neuro Reports no additional complaints Psych Reports no additional complaints Endo Reports no additional complaints Physical exam (Primary Care) Tobacco/Smoking Status: Tobacco use Status Tobacco use date assessed 11/26/22 03/17/23 09:34 Patient Tobacco Use Status Former Tobacco user 03/17/23 09:34 e-Cigarette/Vaping Use Never Used 03/17/23 09:34 Thrive Assessment: Date of Thrive Assessment Date Thrive assessed 11/26/22 03/17/23 09:34 Telehealth Telehealth Location of provider rendering services: practice address Location of patient: address on file Patient Identification confirmed using: Name, : Yes Telehealth method: video Patient verbally consented to treatment: Yes Patient verbally consented to billing insurance company: Yes Patient informed of any privacy concerns related to visit: Yes Minutes spent on Phone/Video with Pt.: 16 Assessment and Plan Assessment & Plan (1) Major depression, recurrent: Code(s): F33.9 - Major depressive disorder, recurrent, unspecified Qualifiers: Active/Remission status: currently active Major depression episode severity: moderate Qualified Code(s): F33.1 - Major depressive disorder, recurrent, moderate (2) Thrombocytopenia: Code(s): D69.6 - Thrombocytopenia, unspecified (3) Elevated liver enzymes: Code(s): R74.8 - Abnormal levels of other serum enzymes (4) Impaired fasting blood sugar: Code(s): R73.01 - Impaired fasting glucose (5) Anxiety, generalized: Code(s): F41.1 - Generalized anxiety disorder (6) Mood swings: Code(s): R45.86 - Emotional lability Plan Patient has been feeling more depressed and anxious for past few days she is not sure if its due to menopausal hormonal changes Patient states that she get irritated easily and is feeling anxious most of the time She does have a stressful job as well She has done well with Wellbutrin and buspirone 5 mg b.i.d. so far She agree to take venlafaxine small dose today, patient was reluctant to take that because it interfered with her libido I am also increasing BuSpar to 10 mg b.i.d. Patient does have thrombocytopenia as well we will be repeating CBC and metabolic profile to monitor liver functions She has already seeing Gastroenterology for that. Patient have IUD Mirena and she is established with OBGYN Orders: Orders Complete Blood Count Auto Diff 3 Weeks D69.6 - Thrombocytopenia, unspecified, F33.9 - Major depressive disorder, recurrent, unspecified, F41.1 - Generalized anxiety disorder, R73.01 - Impaired fasting glucose, R74.8 - Abnormal levels of other serum enzymes Follicle Stimulating Hormone Today R45.86 - Emotional lability Comprehensive Met. Panel 3 Weeks D69.6 - Thrombocytopenia, unspecified, F33.9 - Major depressive disorder, recurrent, unspecified, F41.1 - Generalized anxiety disorder, R73.01 - Impaired fasting glucose, R74.8 - Abnormal levels of other serum enzymes Lutenizing Hormone Today R45.86 - Emotional lability Medications: New venlafaxine ER 37.5 mg PO BEDTIME 30 caps 0RF 30 days gabapentin 100 mg PO DAILY 90 caps 0RF Changed From buspirone 5 mg PO BID 30 days PRN 60 tabs 2RF anxiety To buspirone 10 mg PO BID PRN 60 tabs 2RF anxiety 30 days Coding Level of Care Code Tele Est Pt Level 4 (89655) Diagnoses Moderate episode of recurrent major depressive disorder F33.1 Active/Remission status: currently active Major depression episode severity: moderate Thrombocytopenia D69.6 Elevated liver enzymes R74.8 Impaired fasting blood sugar R73.01 Anxiety, generalized F41.1 Mood swings R45.86
== END 2023-03-17 10:10 | disposition home or self-care (01) ==
LOC: HO.HMGC 09:10
PROVIDERS: PCP Internal Medicine; Visit Provider Internal Medicine
DX: D69.6 Thrombocytopenia, unspecified (principal); F33.1 Major depressive disorder, recurrent, moderate; R74.8 Abnormal levels of other serum enzymes; R73.01 Impaired fasting glucose; F41.1 Generalized anxiety disorder; R45.86 Emotional lability
CPT/HCPCS: 99214

== ENCOUNTER 2023-04-22 08:18 | Outpatient (REF) | payer OTHER, MEDICAID, SELFPAY ==
--- NOTE | ~2023-04-22 | CT_ITS ---
EXAMINATION: CT ABDOMEN AND PELVIS WITH CONTRAST CLINICAL INFORMATION: Elevated liver enzymes. COMPARISON: Abdominal ultrasound 12/01/2021 CT abdomen/pelvis 04/11/2013 TECHNIQUE: Multidetector volumetric images were obtained from the superior aspect of the liver through the pubic symphysis following administration 85 mL of Omnipaque 350 intravenous contrast. Sagittal and coronal reformatted images were obtained on the technologist's workstation. Oral contrast: No This CT examination was performed using dose optimization techniques as appropriate, variously including the following: *Automated exposure control *Adjustment of mA and/or kV according to patient size (this includes techniques or standardized protocols for targeted exams where dose is matched to indication/reason for exam; i.e. extremities or head) *Use of iterative reconstruction technique DLP: 613 mGy-cm FINDINGS: LUNG BASES: The visualized lung bases are unremarkable. LIVER, GALLBLADDER, AND BILIARY TREE: The liver is decreased in attenuation. The liver measures 20.3 cm in sagittal dimension. No suspicious hepatic lesion or biliary ductal dilatation is present. The gallbladder is unremarkable with no evidence of radiopaque gallstones, gallbladder wall thickening, or obvious pericholecystic inflammatory changes. PANCREAS: Unremarkable. SPLEEN: The spleen measures 14.9 cm in sagittal dimension. Rim calcified hypoattenuating lesion in the medial spleen measuring 7.0 x 7.4 cm. ADRENAL GLANDS: Unremarkable. KIDNEYS AND URETERS: The kidneys are symmetric in size and enhancement. No hydronephrosis, hydroureter, or calculi seen. No perinephric stranding. BLADDER: Underdistended. GASTROINTESTINAL TRACT: Small and large bowel loops are of normal caliber. No small bowel obstruction. Appendix is within normal limits. ABDOMINAL WALL: No significant hernia is appreciated. LYMPH NODES: No bulky lymphadenopathy. VASCULAR: Normal caliber abdominal aorta. PELVIC VISCERA: Intrauterine device is in place. OSSEOUS STRUCTURES: No destructive bone lesions. CT/CT abdomen pelvis w IV con IMPRESSION: Hepatomegaly and hepatic steatosis. Splenomegaly. Peripherally calcified cystic lesion measuring 7.0 x 7.4 cm. This is unchanged since 04/11/2013.
[2023-04-22] MEDS: iohexoL 350 MG/ML 100 ML INFUS..BTL IV (08:56)
== END 2023-04-22 08:19 | disposition home or self-care (01) ==
LOC: HO.CT 08:18
PROVIDERS: PCP Internal Medicine; Visit Provider Physician Assistant
DX: R74.8 Abnormal levels of other serum enzymes (principal); D73.4 Cyst of spleen; K76.0 Fatty (change of) liver, not elsewhere classified
CPT/HCPCS: 74177; Q9967

== ENCOUNTER 2023-04-28 07:19 | Outpatient (REF) | payer OTHER, MEDICAID, SELFPAY ==
[2023-04-28 11:38] LABS: MANUAL DIFF FLAG NO
[2023-04-28 12:08] LABS: Basophils Absolute Auto 0.1 X10*3/uL (0.0-0.2); Basophils Percent Auto 0.8 % (0-2); Eosinophils Absolute Auto 0.2 X10*3/uL (0.0-0.4); Eosinophils Percent Auto 2.4 % (0-4); Hematocrit 42.7 % (37.0-47.0); Hemoglobin 14.4 g/dl (12.0-16.0); Imm Gran Abs Auto 0.01 X10*3/uL (0.00-0.03); Imm Gran Pct Auto 0.1 % (0.0-0.4); Lymphocytes Percent Auto 41.4 % (20-40); Mean Corpuscular HGB Conc 33.7 g/dl (31.0-35.0); Mean Corpuscular Hemoglobin 31.6 pg (27.0-33.0); Mean Corpuscular Volume 93.6 fL (80.0-98.0); Monocytes Absolute Auto 0.5 X10*3/uL (0.1-1.2); Monocytes Percent Auto 6.9 % (2-11); Neutrophils Absolute Auto 3.4 x10*3/uL (2.0-8.3); Neutrophils Percent Auto 48.4 % (45-73); Platelet Count 149 X10*3/uL (160-400); Red Blood Count 4.56 X10*6/uL (4.20-5.50); Red Cell Distribution Width 12.3 % (11.0-16.0); White Blood Count 7.1 X10*3/uL (4.8-10.8)
[2023-04-28 12:23] LABS: Alanine Aminotransferase 54 U/L (0-31); Albumin Level 4.4 g/dL (3.5-5.0); Alkaline Phosphatase 85 U/L (39-117); Anion Gap 15 (12-20); Aspartate Amino Transferase 29 U/L (5-31); Bilirubin Total 0.5 mg/dL (0.0-1.0); Blood Urea Nitrogen 11 mg/dL (9-16); Calcium 9.8 mg/dL (8.4-10.2); Carbon Dioxide 25 mmol/L (22-29); Chloride 106 mmol/L (96-108); Estimated Glomerular Filt Rate > 60; Glucose Random 95 mg/dL (60-115); Sodium 142 mmol/L (135-145); Total Protein 7.1 g/dL (6.5-8.0)
[2023-04-29 08:08] LABS: Follicle Stimulating Hormone 72.9 mIU/mL; Lutenizing Hormone 26.5 mIU/mL
== END 2023-04-28 07:20 | disposition home or self-care (01) ==
LOC: HO.HMGCLDS 07:19
PROVIDERS: PCP Internal Medicine; Visit Provider Internal Medicine
DX: R74.8 Abnormal levels of other serum enzymes (principal); F33.9 Major depressive disorder, recurrent, unspecified; R73.01 Impaired fasting glucose; D69.6 Thrombocytopenia, unspecified; F41.1 Generalized anxiety disorder; R45.86 Emotional lability
CPT/HCPCS: 36415; 80053; 83001; 83002; 85025

== ENCOUNTER 2023-04-29 14:04 | Outpatient (AMB) | payer OTHER, MEDICAID, SELFPAY ==
[2023-04-29 14:06] VITALS: BP 130/86; PULSE 94; O2SAT 93; BMI 34.1
--- NOTE | 2023-04-29 14:06 | MHC.PC.OV ---
Vital Signs 04/29/23 14:06 Height 5 ft 8 in Weight 224 lb 4 oz BMI 34.1 BP 130/86 Blood Pressure Location Lt brachial Position Sitting Pulse 94 Pulse Source Pulse Oximeter Pulse Oximetry (%) 93 Oxygen Delivery Method Room Air Intake Visit Reasons: 3 month fu ( Meds ) Allergies Penicillins [PCN] Allergy (Intermediate, Verified 04/29/23 14:07) RASH Medication List - Last Reconciled 04/29/23 by Debbie Lozada MD bupropion HCl (Wellbutrin SR) 150 mg PO BID 90 days famotidine 40 mg PO DAILY gabapentin 100 mg PO DAILY omega 8-ehd-hdb-fish oil 1,000 mg (120 mg-180 mg) (Fish Oil) 1 cap PO DAILY venlafaxine ER 37.5 mg PO BEDTIME 30 days Tobacco use date assessed: 04/29/23 Dental Screening Dental Screen Date: 04/29/23 Did you have a dental visit in the last 12 months?: Yes Did you have a dental problem in the last 6 months where you did not have access to dental care?: No Was dental information given to patient?: Patient has dentist HPI 3 month fu ( Meds ) HPI Details Patient is a 47 year female came in today her regular follow-up appointment She was seen last month when she verbalized to feeling very emotional and depressed I ordered a menopausal hormone which came back abnormal as well Venlafaxine was added patient is doing much better I am changing the Wellbutrin dose to 300 mg once a day as it will be convenient for the patient to take it just once a day I have also prescribed lorazepam 30 tablets 0.5 mg patient may take that as needed when she is feeling overwhelmed auto sleep at night Follow-up 3 months Labs done recently reviewed with the patient LFTs are stable. [facility] Medical History Vitamin D deficiency Goiter HLD (hyperlipidemia) Breast calcification, left Obesity Environmental allergies Lipid disorder Anxiety, generalized Depression, major, recurrent, in partial remission Surgical History History of esophagogastroduodenoscopy (EGD) Hx of colonoscopy History of lumbar surgery History of section Family History Father HTN (hypertension) CHF (congestive heart failure) CVD (cardiovascular disease) Hypercholesterolemia Hx of CABG Myocardial infarction Mother Osteoporosis HTN (hypertension) Brother HTN (hypertension) Hypercholesterolemia Paternal Grandfather Colon cancer Social History Housing: House Alcohol intake: current Alcohol intake frequency: holidays/special occasions only Patient Tobacco Use Status: Former Tobacco user Cigarette Packs Per Day: 1 Years Smoked: 30 e-Cigarette/Vaping Use: Never Used service: No Current occupational status: employed Cognitive needs: Yes Hearing needs: No Vision needs: Yes Questionnaire PHQ-9 Over the last 2 weeks, how often have you been bothered by any of the following problems? 1. Little interest or pleasure in doing things: several days 2. Feeling down, depressed, or hopeless: several days 3. Trouble falling or staying asleep, or sleeping too much: several days 4. Feeling tired or having little energy: several days 5. Poor appetite or overeating: several days 6. Feeling bad about yourself - or that you are a failure or have let yourself or your family down: several days 7. Trouble concentrating on things, such as reading the newspaper or watching television: not at all 8. Moving or speaking so slowly that other people could have noticed. Or the opposite - being so fidgety or restless that you have been moving around a lot more than usual: not at all 9. Thoughts that you would be better off or of hurting yourself in some way: not at all Total score: 6 Depression Screening Interpretation: Negative Depression Screening Done: Yes 01913 - PHQ-9 Billing: Yes Source: Developed by Drs. Igor Nagel, Juanita Pulido, Shamar Rust and colleagues, with an educational joseph from [employer]. Thrive Questionnaire Date Thrive assessed: 04/29/23 I am a: Patient What is your living situation today?: I have a steady place to live Within the past 12 months, did the food you bought not last and you didn't have the money to get more?: Never true Within the past 12 months, did you worry whether your food would run out before you got money to buy more?: Never true Do you have trouble paying for medicines?: No Do you have trouble getting transportation to medical appointments?: No Do you have trouble paying your heating and electricity bill?: No Do you have trouble taking care of your child, family member or friend?: No Do you have trouble with day-to-day activities such as bathing, preparing meals, shopping, managing finances, etc.?: No Are you currently unemployed and looking for a job?: No Are you interested in more education?: No Please select the resources that you would like help with: None Currently or been in a relationship where the following occur: no concerns reported THRIVE Score: 0 CARLA-7 AMB Questionnaire CARLA-7 Date CARLA - 7 assessed: 04/29/23 Feeling nervous, anxious, or on edge: 1 = Several days Not being able to stop or control worryin = Several days Worrying too much about different things: 1 = Several days Trouble relaxin = Several days Being so restless that it is hard to sit still: 0 = Not at all Becoming easily annoyed or irritable: 1 = Several days Feeling afraid as if something awful might happen: 1 = Several days Total CARLA-7 score (0-4 normal; 5-9 mild; 10-14 moderate; 15-21 severe): 6 Source: Developed by Drs. Igor Nagel, Juanita Pulido, Shamar Rust and colleagues, with an educational joseph from [employer]. CARLA-7 Assessment Billing CARLA-7 Assessment Tool: CARLA-7 Assessment 25728 Review of Systems Const Denies chills and Denies fever(s) ENT Denies epistaxis and Denies nasal discharge Card Denies chest pain Resp Denies chest congestion, Denies cough and Denies hemoptysis GI Denies diarrhea and Denies nausea Skin/Breast Denies rash Neuro Reports no additional complaints Psych Reports no additional complaints Endo Reports no additional complaints Physical exam (Primary Care) Vital Signs: Last Vital Signs Pulse 94 04/29/23 14:06 BP 130/86 04/29/23 14:06 Pulse Ox 93 04/29/23 14:06 Oxygen Delivery Method Room Air 04/29/23 14:06 BMI result Body Mass Index 34.1 Tobacco/Smoking Status: Tobacco use Status Tobacco use date assessed 04/29/23 04/29/23 14:11 Patient Tobacco Use Status Former Tobacco user 04/29/23 14:11 e-Cigarette/Vaping Use Never Used 04/29/23 14:11 PHQ-9: PHQ-9 Score PHQ-9: Total score 6 04/29/23 15:52 Depression Screening Interpretation: Negative Thrive Assessment: Date of Thrive Assessment Date Thrive assessed 04/29/23 04/29/23 15:52 Currently or been in a relationship where the following occur: no concerns reported Const General: cooperative, comfortable and no acute distress Orientation/consciousness: patient oriented x3 HENMT Head: Yes normocephalic Eyes General: appearance normal, both eyes and all related structures Neck Neck: Yes supple Resp Effort & Inspection: normal respiratory effort, no cough and no stridor Cardio Rhythm: regular rhythm Heart sounds: S1 normal heart sound present and S2 normal heart sound present Skin General skin exam: turgor normal Neuro General: patient oriented x3, tone normal and moves all extremities Extrem Right lower extremity: no edema Left lower extremity: no edema Assessment and Plan Assessment & Plan (1) Depression, major, recurrent, in partial remission: Code(s): F33.41 - Major depressive disorder, recurrent, in partial remission (2) Anxiety, generalized: Code(s): F41.1 - Generalized anxiety disorder (3) Elevated liver enzymes: Code(s): R74.8 - Abnormal levels of other serum enzymes Plan Patient is a 47 year female came in today her regular follow-up appointment She was seen last month when she verbalized to feeling very emotional and depressed I ordered a menopausal hormone which came back abnormal as well Venlafaxine was added patient is doing much better I am changing the Wellbutrin dose to 300 mg once a day as it will be convenient for the patient to take it just once a day I have also prescribed lorazepam 30 tablets 0.5 mg patient may take that as needed when she is feeling overwhelmed auto sleep at night Follow-up 3 months Labs done recently reviewed with the patient LFTs are stable. Medications: New lorazepam 0.5 mg PO BEDTIME PRN 30 tabs 0RF anxiety bupropion HCl (Wellbutrin XL) 300 mg PO QAM 90 tabs 0RF Discontinued bupropion HCl (Wellbutrin SR) Discontinued Reason: Doctor's Order 150 mg PO BID 90 days 180 tabs 0RF Coding Level of Care Code Est Pt Level 4 (52008) Diagnoses Depression, major, recurrent, in partial remission F33.41 Anxiety, generalized F41.1 Elevated liver enzymes R74.8 Additional Codes CARLA-7 Assessment Billing - CARLA-7 Assessment Tool: CARLA-7 Assessment 56881 ([id number])
== END 2023-04-29 14:28 | disposition home or self-care (01) ==
PROVIDERS: PCP Internal Medicine; Visit Provider Internal Medicine
DX: F33.41 Major depressive disorder, recurrent, in partial remission (principal); F41.1 Generalized anxiety disorder; R74.8 Abnormal levels of other serum enzymes
CPT/HCPCS: 99214

== ENCOUNTER 2023-07-25 19:59 | Emergency (ER) | payer OTHER, SELFPAY ==
[2023-07-25 20:07] VITALS: BP 148/90; PULSE 97; RESP 18; TEMP 36.5; O2SAT 97; BMI 35.0
--- NOTE | 2023-07-25 20:08 | ED_ITS ---
HPI - Extremity Injury (Upper) General Chief Complaint: Skin/Abscess/Foreign Body Stated Complaint: left finger infection Time Seen by Provider: 07/25/23 20:08 Source: patient Mode of arrival: ambulatory Limitations: no limitations History of Present Illness HPI narrative: 47-year-old female with no known medical history, right-hand dominant here with swelling and redness the left hand 2nd digit x 9 days. No fevers, chills, numbness, tingling. Related Data Home Medications ?Medication ?Instructions ?Recorded ?Confirmed omega 1-ase-gmn-fish oil 1,000 mg 1 cap PO DAILY 05/07/20 04/29/23 (120 mg-180 mg) capsule (Fish Oil) Previous Rx's ?Medication ?Instructions ?Recorded famotidine 40 mg tablet 40 mg PO DAILY #30 tabs 03/14/23 gabapentin 100 mg capsule 100 mg PO DAILY #90 caps 03/17/23 bupropion HCl 300 mg 24 hr tablet, 300 mg PO QAM #90 tabs 04/29/23 extended release (Wellbutrin XL) lorazepam 0.5 mg tablet 0.5 mg PO BEDTIME PRN anxiety #30 04/29/23 tabs venlafaxine 37.5 mg 37.5 mg PO BEDTIME #90 caps 05/24/23 capsule,extended release 24 hr doxycycline monohydrate 100 mg 100 mg PO BID #20 caps 07/25/23 capsule Allergies Allergy/AdvReac Type Severity Reaction Status Date / Time Penicillins [PCN] Allergy Intermediate RASH Verified 07/25/23 20:09 Review of Systems Review of Systems: Yes all other systems are reviewed and are negative Constitutional: Constitutional: Reports no additional constitutional complaints, Denies body ache(s), Denies chills, Denies fever(s), Denies headache(s) and Denies weakness Eyes: Eyes: Reports no additional eye complaints and Denies change in vision ENT: Reports system reviewed and no additional complaints, except as documented, Denies dizziness, Denies headache(s), Denies nasal congestion, Denies nasal discharge and Denies neck pain Cardiovascular: Cardiovascular: Reports no additional cardiovascular complaints, Denies chest pain, Denies leg edema and Denies dyspnea Respiratory: Respiratory: Reports no additional respiratory complaints, Denies cough and Denies dyspnea Gastrointestinal: Gastrointestinal: Reports no additional gastrointestinal complaints, Denies abdominal pain, Denies diarrhea, Denies nausea and Denies vomiting Genitourinary: Genitourinary: Reports no additional female genitourinary complaints and Denies urinary incontinence Musculoskeletal: Musculoskeletal: Reports no additional musculoskeletal complaints, Denies back pain, Denies arthralgias, Denies joint swelling, Denies neck pain, Denies numbness and Denies tingling Integumentary/Breasts: Skin/Breast: Reports system reviewed and no additional complaints, except as docu, Reports swelling, Reports erythema and Denies rash Neurologic: Reports system reviewed and no additional complaints, except as documented, Denies Abnormal speech present, Denies dizziness, Denies headache(s), Denies numbness, Denies tingling and Denies weakness PMFSH Past Medical History Attestation statement: The following information was validated with the patient. Source: old records reviewed and nursing notes reviewed Medical History Vitamin D deficiency Goiter HLD (hyperlipidemia) Breast calcification, left Obesity Environmental allergies Lipid disorder Anxiety, generalized Depression, major, recurrent, in partial remission Surgical History History of esophagogastroduodenoscopy (EGD) Hx of colonoscopy History of lumbar surgery History of section Family History Family History Father HTN (hypertension) CHF (congestive heart failure) CVD (cardiovascular disease) Hypercholesterolemia Hx of CABG Myocardial infarction Mother Osteoporosis HTN (hypertension) Brother HTN (hypertension) Hypercholesterolemia Paternal Grandfather Colon cancer Social History Social History Housing: House Alcohol intake: current Alcohol intake frequency: holidays/special occasions only Patient Tobacco Use Status: Former Tobacco user Cigarette Packs Per Day: 1 Years Smoked: 30 e-Cigarette/Vaping Use: Never Used Do you have a plan to hurt others: No Plan service: No Current occupational status: employed Cognitive needs: Yes Hearing needs: No Vision needs: Yes Physical Exam Vital Signs: Vital Signs: Last Vital Signs Temp 97.7 F 07/25/23 20:07 Pulse 97 07/25/23 20:07 Resp 18 07/25/23 20:07 BP 148/90 H 07/25/23 20:07 Pulse Ox 97 07/25/23 20:07 O2 Del Method Room Air 07/25/23 20:07 BMI result Body Mass Index 35.0 Const: General: cooperative, healthy appearing, comfortable and no acute distress Orientation/consciousness: patient oriented x3 Limitations: no limitations HEENT: Head: Yes normal to inspection Ears: hearing grossly normal bilaterally General nose exam: Normal external nose present Face and sinus: Yes normal facial exam Mouth: Normal oral and palatal mucosa present Throat: Yes posterior oropharynx normal Eyes: General: appearance normal, both eyes and all related structures Pupils: Equal, round and reactive pupils present Neck: Neck: Yes normal visual inspection Chest: Chest palpation & inspection: normal inspection of the chest Resp: Effort & Inspection: normal respiratory effort Auscultation: clear to auscultation bilaterally Cardio: Rate: regular rate Rhythm: regular rhythm Peripheral pulses: Peripheral pulses 2+ throughout GI: Inspection: Yes normal to inspection Palpation (GI): Soft to palpation and nontender Auscultation: normal bowel sounds Back/Spine/Pelvis: Thoracic/Lumbar Spine: thoracic and lumbar spine normal to inspection Skin: General skin exam: no rashes or lesions noted Neuro: General: patient oriented x3, no focal motor deficits and normal sensation to monofilament Cranial nerves: Yes Equal, round and reactive pupils present Cognition (Neuro): normal cognition Speech: No Abnormal speech present Gait exam (Neuro): Normal gait present Motor exam (neuro): 5/5 motor strength present throughout Extrem: Other: On the left-hand to the 2nd digit along the medial nail bed there is erythema, swelling with central fluctuance. FROM General: Yes normal to inspection Medications Administered Discontinued Medications Generic Name Dose Route Start Last Admin Trade Name Freq PRN Reason Stop Dose Admin Bacitracin 1 appl 07/25/23 20:10 07/25/23 20:12 Bacitracin Oint 0.9 Gm Packet TOPICAL 07/25/23 20:11 1 appl ONCE ONE Administration Protocol Doxycycline Monohydrate 100 mg 07/25/23 20:11 07/25/23 20:17 Doxycycline Monohydrate 100 Mg Capsule PO 07/25/23 20:12 100 mg ONCE ONE Administration Medical Decision Making Medical Decision Making MDM Narrative: 47-year-old female with no known medical history, right-hand dominant here with swelling and redness the left hand 2nd digit x 9 days. No fevers, chills, numbness, tingling. On the left-hand to the 2nd digit along the medial nail bed there is erythema, swelling with central fluctuance. FROM See procedure note. Patient will be discharged home with an oral antibiotic with recommendations to continue warm soaks, take Motrin or Tylenol for pain Differential Diagnosis Differential Diagnoses: The differential diagnosis associated with the presentation includes Paronychia Low suspicion for osteomyelitis, cellulitis, necrotizing fasciitis, compartment syndrome, fracture Admission/Observation Consideration of admission/observation: Escalation of care including admission/observation considered Low suspicion for osteomyelitis, cellulitis, necrotizing fasciitis, compartment syndrome, fracture requiring labs, advanced imaging and/or admission Tests considered The following testing was considered but not selected: See discussion above Prescription Management I considered prescription management with: Pain Medication and Antibiotic Procedures Abscess I/D Site: hand (Left hand, 2nd finger) Side (if applicable): left Technique: needle aspiration Sent for culture/gram staining?: No Irrigation: No Packing used?: none Discharge Plan Discharge Clinical Impression: Paronychia of finger Patient Disposition: Home, Self-Care Instructions: Paronychia (ED) Additional Instructions: Continue warm soaks 2 times daily Apply a antibiotic ointment and wrapped the finger after soaking it Take the antibiotic as prescribed Take it with food Take Motrin or Tylenol for pain as needed Return for increasing redness, swelling, fever Prescriptions: New doxycycline monohydrate 100 mg capsule 100 mg PO BID Qty: 20 0RF No Action venlafaxine 37.5 mg capsule,extended release 24hr 37.5 mg PO BEDTIME Qty: 90 0RF lorazepam 0.5 mg tablet 0.5 mg PO BEDTIME PRN (Reason: anxiety) Qty: 30 0RF bupropion HCl [Wellbutrin XL] 300 mg tablet extended release 24 hr 300 mg PO QAM Qty: 90 0RF gabapentin 100 mg capsule 100 mg PO DAILY Qty: 90 0RF omega 8-egy-udf-fish oil [Fish Oil] 1,000 mg (120 mg-180 mg) capsule 1 cap PO DAILY famotidine 40 mg tablet 40 mg PO DAILY Qty: 30 5RF Referrals: Debbie Lozada MD [Primary Care Provider] - 1 week Print Language: Bulgarian
[2023-07-25] MEDS: Bacitracin Oint 0.9 GM PACKET 1 APPL TOPICAL (20:12)
[2023-07-25] MEDS: Doxycycline Monohydrate 100 MG CAPSULE PO (20:17)
[2023-07-25 20:18] VITALS: BP 148/90; PULSE 96; RESP 16; TEMP 36.5; O2SAT 98
== END 2023-07-25 20:21 | disposition home or self-care (01) ==
LOC: HO.ED 20:20
PROVIDERS: Emergency Provider Internal Medicine; PCP Internal Medicine
DX: L03.012 Cellulitis of left finger (principal)
CPT/HCPCS: 10160; 99282; 99283

== ENCOUNTER 2023-07-29 14:26 | Emergency (ER) | payer OTHER, SELFPAY ==
[2023-07-29 15:41] VITALS: BP 149/81; PULSE 91; RESP 18; TEMP 36.3; O2SAT 100; BMI 36.3
--- NOTE | 2023-07-29 17:49 | ED_ITS ---
HPI - General Adult General Chief complaint: Skin/Abscess/Foreign Body Stated complaint: finger infection Time Seen by Provider: 07/29/23 17:48 Source: patient Mode of arrival: ambulatory Limitations: no limitations History of Present Illness HPI narrative: Patient is a 47 year old assigned female at with a history of anxiety and GERD presenting to the emergency department today with left 2nd digit swelling. Patient states that she was seen here on 07/25/2023 for a paronychia of the 2nd left digit. Patient states that they used a needle to drain it and started her on doxycycline. Patient states that yesterday, the area refilled with pus even though she continues to take the antibiotic. Patient denies any dizziness, lightheadedness, abdominal pain, nausea, vomiting, fever, chills, blurry vision, double vision, loss of vision, chest pain, difficulty breathing, shortness of breath, back pain, night sweats, pain with urination, increased urinary frequency, increased urinary urgency, blood in her urine or stool, syncope or a near syncopal episode, recent trauma or falls, bowel incontinence, bladder incontinence, bowel retention, bladder retention, or any other complaints at this time. Onset (ago): day(s) (2) Location: left (2nd digit) Radiation: non-radiation Severity: mild Severity scale (1-10): 3 Relieving factors: none Exacerbating factors: none Associated symptoms: denies other symptoms Treatments prior to arrival: other (doxycycline) Related Data Home Medications ?Medication ?Instructions ?Recorded ?Confirmed omega 5-exc-ruw-fish oil 1,000 mg 1 cap PO DAILY 05/07/20 04/29/23 (120 mg-180 mg) capsule (Fish Oil) Previous Rx's ?Medication ?Instructions ?Recorded famotidine 40 mg tablet 40 mg PO DAILY #30 tabs 03/14/23 gabapentin 100 mg capsule 100 mg PO DAILY #90 caps 03/17/23 bupropion HCl 300 mg 24 hr tablet, 300 mg PO QAM #90 tabs 04/29/23 extended release (Wellbutrin XL) lorazepam 0.5 mg tablet 0.5 mg PO BEDTIME PRN anxiety #30 04/29/23 tabs venlafaxine 37.5 mg 37.5 mg PO BEDTIME #90 caps 05/24/23 capsule,extended release 24 hr doxycycline monohydrate 100 mg 100 mg PO BID #20 caps 04/22/24 capsule cephalexin 500 mg capsule 500 mg PO Q6H 7 days #28 caps 07/29/23 Allergies Allergy/AdvReac Type Severity Reaction Status Date / Time Penicillins [PCN] Allergy Intermediate RASH Verified 07/29/23 15:43 Review of Systems Constitutional: Constitutional: Reports no additional constitutional complaints, Denies chills, Denies fever(s) and Denies night sweats Eyes: Eyes: Reports no additional eye complaints, Denies blurry vision, Denies change in vision, Denies diplopia, Denies eye discharge, Denies loss of vision and Denies eye pain ENT: Denies dizziness Cardiovascular: Cardiovascular: Reports no additional cardiovascular complaints, Denies chest pain, Denies lightheadedness, Denies Loss of Consciousness and Denies dyspnea Respiratory: Respiratory: Reports no additional respiratory complaints and Denies dyspnea Gastrointestinal: Gastrointestinal: Reports no additional gastrointestinal complaints, Denies abdominal pain, Denies melena, Denies hematochezia, Denies change in bowel habits and Denies change in stool character Genitourinary: Genitourinary: Denies hematuria, Denies urinary frequency, Denies dysuria, Denies urinary incontinence, Denies urinary hesitancy and Denies urinary urgency Musculoskeletal: Musculoskeletal: Reports no additional musculoskeletal complaints, Denies numbness and Denies tingling Comments: left 2nd digit swelling - pain Neurologic: Denies dizziness, Denies loss of vision, Denies numbness and Denies tingling Psychiatric: Psychiatric: Reports no additional psychiatric complaints Endocrine: Endocrine: Reports no additional endocrine complaints Hematologic/Lymphatic: Hematologic/Lymphatic: Reports no additional hematologic/lymphatic complaints Allergic/Immunologic: Allergic/Immunologic: Reports no additional allergic/immunologic complaints [facility] Past Medical History Attestation statement: The following information was validated with the patient. Source: old records reviewed and nursing notes reviewed Medical History Vitamin D deficiency Goiter HLD (hyperlipidemia) Breast calcification, left Obesity Environmental allergies Lipid disorder Anxiety, generalized Depression, major, recurrent, in partial remission Surgical History History of esophagogastroduodenoscopy (EGD) Hx of colonoscopy History of lumbar surgery History of section Family History Family History Father HTN (hypertension) CHF (congestive heart failure) CVD (cardiovascular disease) Hypercholesterolemia Hx of CABG Myocardial infarction Mother Osteoporosis HTN (hypertension) Brother HTN (hypertension) Hypercholesterolemia Paternal Grandfather Colon cancer Social History Social History Housing: House Alcohol intake: current Alcohol intake frequency: holidays/special occasions only Patient Tobacco Use Status: Former Tobacco user Cigarette Packs Per Day: 1 Years Smoked: 30 e-Cigarette/Vaping Use: Never Used Advance Directives: No Advance Directives Information Provided: No Do you have a plan to hurt others: No Plan service: No Current occupational status: employed Cognitive needs: Yes Hearing needs: No Vision needs: Yes Physical Exam ED Vital Signs: Vital Signs - 24 hr 07/29/23 15:41 07/29/23 18:37 07/29/23 18:42 Temperature 97.4 F 97.9 F 97.9 F Pulse Rate 91 88 88 Respiratory Rate 18 20 20 Blood Pressure 149/81 H 148/80 H 148/80 H Pulse Oximetry 100 99 99 Oxygen Delivery Method Room Air Room Air Room Air BMI result Body Mass Index 36.3 Const General: cooperative, no acute distress, alert and awake Nutritional Appearance: well nourished Orientation/consciousness: patient oriented x3 Limitations: no limitations HENMT Head: Yes normal to inspection and Yes atraumatic Ears: hearing grossly normal bilaterally and external ears normal General nose exam: Normal external nose present, no nasal discharge noted and no epistaxis Face and sinus: Yes normal facial exam, No abrasion and No laceration Mouth: Normal oral and palatal mucosa present, no drooling and no muffled voice Eyes General: appearance normal, both eyes and all related structures Periorbital: periorbital findings normal Eyelids: Yes eyelids normal Conjunctivae: conjunctivae normal Pupils: Equal, round and reactive pupils present EOM: EOMs intact bilaterally Neck Neck: Yes normal visual inspection, Yes full ROM and Yes no lymphadenopathy Chest Chest palpation & inspection: normal inspection of the chest Resp Effort & Inspection: normal respiratory effort and able to speak in complete sentences GI Inspection: Yes normal to inspection Neuro General: patient oriented x3 and moves all extremities Cranial nerves: Yes Equal, round and reactive pupils present Cognition (Neuro): normal cognition Motor exam (neuro): 5/5 motor strength present throughout Sensory Exam: Normal double simultaneous stimulation for sensation Coordination: [id number] test normal Extrem Other: paronychia present to the dorsal left 2nd digit with obvious pus collection General: Yes full ROM and Yes capillary refill normal Psych Appearance: grossly normal Mental Status: mental status grossly normal Affect: normal affect Attitude: cooperative Thought process: Normal thought process present Thought content: Normal thought content present Insight: Good insight present (Psych) Procedures Abscess I/D Site: other (2nd digit) Side (if applicable): left Local Anesthetic: lidocaine 1% Amount of anesthesia used (mL): 5 Technique: incised with blade Amount of fluid expressed (mL): 2 Sent for culture/gram staining?: No Irrigation: No Packing used?: none Medical Decision Making Medical Decision Making MDM Narrative: Patient is a 47 year old assigned female at with a history of anxiety and GERD presenting to the emergency department today with a paronychia recurrence. Patient's physical exam was as noted in the physical exam portion of this note. I explained my physical exam findings to the patient. I answered all questions asked by the patient. Patient's paronychia was drained, per procedure note, without incident. I stressed the importance of the patient taking her medication as prescribed. I added keflex to the patient's antibiotic regimen. I stressed the importance of the patient following up with her primary care provider. I stressed the importance of the patient returning to the emergency department immediately if her symptoms were to worsen or if she were to develop any dizziness, shortness of breath, difficulty breathing, chest pain, blurry vision, loss of vision, nausea, vomiting, abdominal pain, fever, chills, back pain, or any other complaints. Patient verbalized agreement and understanding with this treatment plan and discharge. Differential Diagnosis Differential Diagnoses: The differential diagnosis associated with the presentation includes Paronychia Cellulitis Admission/Observation Consideration of admission/observation: Escalation of care including admission/observation considered Patient would have been admitted to the hospital had her clinical presentation warranted hospital admission. Prescription Management I considered prescription management with: Antibiotic (patient prescribed keflex) Discharge Plan Discharge Clinical Impression: Paronychia of finger Patient Disposition: Home, Self-Care Instructions: Paronychia (ED) Additional Instructions: Do NOT soak the affected area. Perform daily dressing changes and wound checks. Take your antibiotic as prescribed. Follow up with your primary care provider. Return to the emergency department immediately if your symptoms worsen or if you develop any dizziness, shortness of breath, difficulty breathing, chest pain, blurry vision, loss of vision, nausea, vomiting, abdominal pain, fever, chills, back pain, or any other complaints. Prescriptions: New cephalexin 500 mg capsule 500 mg PO Q6H 7 Days Qty: 28 0RF No Action venlafaxine 37.5 mg capsule,extended release 24hr 37.5 mg PO BEDTIME Qty: 90 0RF doxycycline monohydrate 100 mg capsule 100 mg PO BID Qty: 20 0RF lorazepam 0.5 mg tablet 0.5 mg PO BEDTIME PRN (Reason: anxiety) Qty: 30 0RF bupropion HCl [Wellbutrin XL] 300 mg tablet extended release 24 hr 300 mg PO QAM Qty: 90 0RF gabapentin 100 mg capsule 100 mg PO DAILY Qty: 90 0RF omega 3-cfi-huf-fish oil [Fish Oil] 1,000 mg (120 mg-180 mg) capsule 1 cap PO DAILY famotidine 40 mg tablet 40 mg PO DAILY Qty: 30 5RF Referrals: [facility] [place] Family Medicine [Provider Group] (Call to establish and follow up with a primary care provider. If you already have a primary care provider, please follow up with them.) [facility] [place] Primary CareJohnie [Provider Group] [facility] [place] Primary CareJessica [Provider Group] Interventions: ED Discharge Assessment Last Done: 07/29/23 18:42 Discharge Date/Time: 07/29/23 18:44 Print Language: [place] Citizen
[2023-07-29 18:37] VITALS: BP 148/80; PULSE 88; RESP 20; TEMP 36.6; O2SAT 99
[2023-07-29 18:42] VITALS: BP 148/80; PULSE 88; RESP 20; TEMP 36.6; O2SAT 99
== END 2023-07-29 18:44 | disposition home or self-care (01) ==
PROVIDERS: Emergency Provider Internal Medicine
DX: L03.012 Cellulitis of left finger (principal)
CPT/HCPCS: 10060; 99282; 99284

== ENCOUNTER 2023-12-16 10:47 | Outpatient (AMB) | payer OTHER, SELFPAY ==
--- NOTE | 2023-12-16 10:51 | MHC.PC.OV ---
Vital Signs 12/16/23 10:55 Height 5 ft 8 in Weight 247 lb BMI 37.6 BP 132/78 Blood Pressure Location Lt brachial Position Sitting Pulse 96 Pulse Source Pulse Oximeter Pulse Oximetry (%) 95 Oxygen Delivery Method Room Air Intake Visit Reasons: Med follow up Allergies Penicillins [PCN] Allergy (Intermediate, Verified 12/16/23 10:58) RASH Medication List - Last Reconciled 12/16/23 by Debbie Lozada MD bupropion HCl XL (Wellbutrin XL) 300 mg PO QAM lorazepam 0.5 mg PO BEDTIME PRN omega 3-fiv-fvl-fish oil 1,000 mg (120 mg-180 mg) (Fish Oil) 1 cap PO DAILY venlafaxine ER 37.5 mg PO BEDTIME Tobacco use date assessed: 12/16/23 Dental Screening Dental Screen Date: 12/16/23 Did you have a dental visit in the last 12 months?: Yes Did you have a dental problem in the last 6 months where you did not have access to dental care?: No Was dental information given to patient?: Patient has dentist HPI Med follow up HPI Details Patient is a 48-year-old female came in today for her follow-up appointment last visit was April of this year Patient had very stressful job she is in the middle of transition to new job She is taking Wellbutrin 300 mg and venlafaxine 37.5 mg Patient says that the venlafaxine has helped her a lot when she started having menopausal symptoms However she is questioning Wellbutrin. After discussion we decided to continue both medication while she is transitioning to a new job Lab order placed to be done before next visit in 3 months and patient will return for physical exam BMI is elevated patient is aware, and she will be starting regular exercise program Her liver enzyme need to be monitored as well Vitamin-D level was low, patient is supposed to be on supplement Blood pressure is stable today [facility] Medical History Vitamin D deficiency Goiter HLD (hyperlipidemia) Breast calcification, left Obesity Environmental allergies Lipid disorder Anxiety, generalized Depression, major, recurrent, in partial remission Surgical History History of esophagogastroduodenoscopy (EGD) Hx of colonoscopy History of lumbar surgery History of section Family History Father HTN (hypertension) CHF (congestive heart failure) CVD (cardiovascular disease) Hypercholesterolemia Hx of CABG Myocardial infarction Mother Osteoporosis HTN (hypertension) Brother HTN (hypertension) Hypercholesterolemia Paternal Grandfather Colon cancer Social History Housing: House Alcohol intake: current Alcohol intake frequency: holidays/special occasions only Patient Tobacco Use Status: Former Tobacco user Cigarette Packs Per Day: 1 Years Smoked: 30 e-Cigarette/Vaping Use: Never Used service: No Current occupational status: employed Cognitive needs: Yes Hearing needs: No Vision needs: Yes Questionnaire PHQ-9 Over the last 2 weeks, how often have you been bothered by any of the following problems? 1. Little interest or pleasure in doing things: not at all 2. Feeling down, depressed, or hopeless: not at all 3. Trouble falling or staying asleep, or sleeping too much: more than half the days 4. Feeling tired or having little energy: more than half the days 5. Poor appetite or overeating: several days 6. Feeling bad about yourself - or that you are a failure or have let yourself or your family down: not at all 7. Trouble concentrating on things, such as reading the newspaper or watching television: not at all 8. Moving or speaking so slowly that other people could have noticed. Or the opposite - being so fidgety or restless that you have been moving around a lot more than usual: not at all 9. Thoughts that you would be better off or of hurting yourself in some way: not at all Total score: 5 Depression Screening Interpretation: Negative Depression Screening Done: Yes 77049 - PHQ-9 Billing: Yes Source: Developed by Drs. Igor Nagel, Juanita Pulido, Shamar Rust and colleagues, with an educational joseph from [employer] Thrive Questionnaire Date Thrive assessed: 12/16/23 I am a: Patient What is your living situation today?: I have a steady place to live Within the past 12 months, did the food you bought not last and you didn't have the money to get more?: Never true Within the past 12 months, did you worry whether your food would run out before you got money to buy more?: Never true Do you have trouble paying for medicines?: No Do you have trouble getting transportation to medical appointments?: No Do you have trouble paying your heating and electricity bill?: No Do you have trouble taking care of your child, family member or friend?: No Do you have trouble with day-to-day activities such as bathing, preparing meals, shopping, managing finances, etc.?: No Are you currently unemployed and looking for a job?: No Are you interested in more education?: No Please select the resources that you would like help with: None Currently or been in a relationship where the following occur: No concerns reported THRIVE Score: 0 AUDIT C Alcohol Use Questionnaire (AUDIT-C) 1. How often do you have a drink containing alcohol?: 2-4 times a month 2. How many drinks containing alcohol do you have on a typical day when you are drinking?: 1 or 2 3. How often do you have six or more drinks on one occasion?: Never Total Score: 2 Score Reviewed/Action Taken: Yes CARLA-7 AMB Questionnaire CARLA-7 Date CARLA - 7 assessed: 12/16/23 Feeling nervous, anxious, or on edge: 1 = Several days Not being able to stop or control worryin = Several days Worrying too much about different things: 1 = Several days Trouble relaxin = Not at all Being so restless that it is hard to sit still: 0 = Not at all Becoming easily annoyed or irritable: 1 = Several days Feeling afraid as if something awful might happen: 1 = Several days Total CARLA-7 score (0-4 normal; 5-9 mild; 10-14 moderate; 15-21 severe): 5 Source: Developed by Drs. Igor Nagel, Juanita Pulido, Shamar Rust and colleagues, with an educational joseph from [employer] CARLA-7 Assessment Billing CARLA-7 Assessment Tool: CARLA-7 Assessment 66226 Review of Systems Const Denies chills and Denies fever(s) ENT Denies epistaxis and Denies nasal discharge Card Denies chest pain Resp Denies chest congestion, Denies cough and Denies hemoptysis GI Denies diarrhea and Denies nausea Skin/Breast Denies rash Neuro Reports no additional complaints Psych Reports no additional complaints Endo Reports no additional complaints Physical exam (Primary Care) Vital Signs: Last Vital Signs Pulse 96 12/16/23 10:55 BP 132/78 12/16/23 10:55 Pulse Ox 95 12/16/23 10:55 Oxygen Delivery Method Room Air 12/16/23 10:55 BMI result Body Mass Index 37.6 Tobacco/Smoking Status: Tobacco use Status Tobacco use date assessed 12/16/23 12/16/23 10:59 Patient Tobacco Use Status Former Tobacco user 12/16/23 10:52 e-Cigarette/Vaping Use Never Used 12/16/23 10:52 PHQ-9: PHQ-9 Score PHQ-9: Total score 5 12/16/23 11:15 Depression Screening Interpretation: Negative Thrive Assessment: Date of Thrive Assessment Date Thrive assessed 12/16/23 12/16/23 10:59 Currently or been in a relationship where the following occur: No concerns reported Const General: cooperative, comfortable and no acute distress Orientation/consciousness: patient oriented x3 HENMT Head: Yes normocephalic Eyes General: appearance normal, both eyes and all related structures Neck Neck: Yes supple Resp Effort & Inspection: normal respiratory effort, no cough and no stridor Cardio Rhythm: regular rhythm Heart sounds: S1 normal heart sound present and S2 normal heart sound present Skin General skin exam: turgor normal Neuro General: patient oriented x3, tone normal and moves all extremities Extrem Right lower extremity: no edema Left lower extremity: no edema Assessment and Plan Assessment & Plan (1) Depression, major, recurrent, in partial remission: Code(s): F33.41 - Major depressive disorder, recurrent, in partial remission (2) Anxiety, generalized: Code(s): F41.1 - Generalized anxiety disorder (3) Elevated liver enzymes: Code(s): R74.8 - Abnormal levels of other serum enzymes (4) Lipid disorder: Code(s): E78.9 - Disorder of lipoprotein metabolism, unspecified (5) Environmental allergies: Code(s): Z91.09 - Other allergy status, other than to drugs and biological substances (6) Vitamin D deficiency: Code(s): E55.9 - Vitamin D deficiency, unspecified (7) Obesity due to excess calories: Code(s): E66.09 - Other obesity due to excess calories Qualifiers: Body mass index: BMI 37.0-37.9 Obesity classification: adult class 2 (BMI 35 - 39.9) Serious obesity comorbidity presence: without serious comorbidity Qualified Code(s): E66.09 - Other obesity due to excess calories; Z68.37 - Body mass index [BMI] 37.0-37.9, adult (8) LFT elevation: Code(s): R79.89 - Other specified abnormal findings of blood chemistry Plan Patient is a 48-year-old female came in today for her follow-up appointment last visit was April of this year Patient had very stressful job she is in the middle of transition to new job She is taking Wellbutrin 300 mg and venlafaxine 37.5 mg Patient says that the venlafaxine has helped her a lot when she started having menopausal symptoms However she is questioning Wellbutrin. After discussion we decided to continue both medication while she is transitioning to a new job Lab order placed to be done before next visit in 3 months and patient will return for physical exam BMI is elevated patient is aware, and she will be starting regular exercise program Her liver enzyme need to be monitored as well Vitamin-D level was low, patient is supposed to be on supplement Blood pressure is stable today Orders: Orders TSH reflex Free T4 Today E55.9 - Vitamin D deficiency, unspecified, E66.09 - Other obesity due to excess calories, E78.9 - Disorder of lipoprotein metabolism, unspecified, F33.41 - Major depressive disorder, recurrent, in partial remission, F41.1 - Generalized anxiety disorder, R79.89 - Other specified abnormal findings of blood chemistry, Z91.09 - Other allergy status, other than to drugs and biological substances Lipid Panel Today E55.9 - Vitamin D deficiency, unspecified, E66.09 - Other obesity due to excess calories, E78.9 - Disorder of lipoprotein metabolism, unspecified, F33.41 - Major depressive disorder, recurrent, in partial remission, F41.1 - Generalized anxiety disorder, R79.89 - Other specified abnormal findings of blood chemistry, Z91.09 - Other allergy status, other than to drugs and biological substances Complete Blood Count Auto Diff Today E55.9 - Vitamin D deficiency, unspecified, E66.09 - Other obesity due to excess calories, E78.9 - Disorder of lipoprotein metabolism, unspecified, F33.41 - Major depressive disorder, recurrent, in partial remission, F41.1 - Generalized anxiety disorder, R79.89 - Other specified abnormal findings of blood chemistry, Z91.09 - Other allergy status, other than to drugs and biological substances Comprehensive [place]. Panel Fast Today E55.9 - Vitamin D deficiency, unspecified, E66.09 - Other obesity due to excess calories, E78.9 - Disorder of lipoprotein metabolism, unspecified, F33.41 - Major depressive disorder, recurrent, in partial remission, F41.1 - Generalized anxiety disorder, R79.89 - Other specified abnormal findings of blood chemistry, Z91.09 - Other allergy status, other than to drugs and biological substances Medications: Refilled venlafaxine ER 37.5 mg PO BEDTIME 90 caps 0RF Coding Level of Care Code Est Pt Level 4 (68015) Diagnoses Depression, major, recurrent, in partial remission F33.41 Anxiety, generalized F41.1 Elevated liver enzymes R74.8 Lipid disorder E78.9 Environmental allergies Z91.09 Vitamin D deficiency E55.9 Class 2 obesity due to excess calories without serious comorbidity with body mass index (BMI) of 37.0 to 37.9 in adult E66.09; Z68.37 Body mass index: BMI 37.0-37.9 Obesity classification: adult class 2 (BMI 35 - 39.9) Serious obesity comorbidity presence: without serious comorbidity LFT elevation R79.89 Additional Codes CARLA-7 Assessment Billing - CARLA-7 Assessment Tool: CARLA-7 Assessment [id number] ([id number])
[2023-12-16 10:55] VITALS: BP 132/78; PULSE 96; O2SAT 95; BMI 37.6
== END 2023-12-16 11:52 | disposition home or self-care (01) ==
PROVIDERS: PCP Internal Medicine; Visit Provider Internal Medicine
DX: F33.41 Major depressive disorder, recurrent, in partial remission (principal); F41.1 Generalized anxiety disorder; R74.8 Abnormal levels of other serum enzymes; E78.9 Disorder of lipoprotein metabolism, unspecified; Z91.09 Other allergy status, other than to drugs and biological substances; E55.9 Vitamin D deficiency, unspecified; E66.09 Other obesity due to excess calories; Z68.37 Body mass index [BMI] 37.0-37.9, adult; R79.89 Other specified abnormal findings of blood chemistry
CPT/HCPCS: 96127; 99214

== ENCOUNTER 2024-03-16 08:11 | Outpatient (REF) | payer OTHER, SELFPAY ==
[2024-03-16 10:25] LABS: MANUAL DIFF FLAG NO
[2024-03-16 10:31] LABS: Basophils Absolute Auto 0.1 X10*3/uL (0.0-0.2); Basophils Percent Auto 0.8 % (0-2); Eosinophils Absolute Auto 0.2 X10*3/uL (0.0-0.4); Eosinophils Percent Auto 2.7 % (0-4); Hematocrit 42.2 % (37.0-47.0); Hemoglobin 14.6 g/dl (12.0-16.0); Imm Gran Abs Auto 0.02 X10*3/uL (0.00-0.03); Imm Gran Pct Auto 0.2 % (0.0-0.4); Lymphocytes Absolute Auto 3.9 X10*3/uL (1.2-4.9); Lymphocytes Percent Auto 47.5 % (20-40); Mean Corpuscular HGB Conc 34.6 g/dl (31.0-35.0); Mean Corpuscular Hemoglobin 31.9 pg (27.0-33.0); Mean Corpuscular Volume 92.1 fL (80.0-98.0); Mean Platelet Volume 12.9 fL (9.4-12.3); Monocytes Absolute Auto 0.6 X10*3/uL (0.1-1.2); Monocytes Percent Auto 6.8 % (2-11); Neutrophils Absolute Auto 3.5 x10*3/uL (2.0-8.3); Platelet Count 156 X10*3/uL (160-400); Red Blood Count 4.58 X10*6/uL (4.20-5.50); Red Cell Distribution Width 11.8 % (11.0-16.0); White Blood Count 8.3 X10*3/uL (4.8-10.8)
[2024-03-16 11:03] LABS: Alanine Aminotransferase 160 U/L (0-31); Albumin Level 4.3 g/dL (3.5-5.0); Alkaline Phosphatase 97 U/L (39-117); Anion Gap 11 (12-20); Aspartate Amino Transferase 69 U/L (5-31); Bilirubin Total 0.3 mg/dL (0.0-1.0); Blood Urea Nitrogen 9 mg/dL (9-16); Calcium 9.7 mg/dL (8.4-10.2); Carbon Dioxide 26 mmol/L (22-29); Chloride 107 mmol/L (96-108); Cholesterol 215 mg/dL (<200); Estimated Glomerular Filt Rate > 60; Glucose Fasting 111 mg/dL (60-99); HDL Cholesterol 45 mg/dL (>40); LDL Cholesterol Calculated 133 mg/dL (<100); Potassium 4.2 mmol/L (3.3-5.1); Sodium 140 mmol/L (135-145); TSH reflex Free T4 1.25 uIU/mL (0.32-4.0); Triglycerides 185 mg/dL (<150)
== END 2024-03-16 08:12 | disposition home or self-care (01) ==
LOC: HO.10HDL 08:11
PROVIDERS: Visit Provider Internal Medicine
DX: Z00.01 Encounter for general adult medical examination with abnormal findings (principal); F33.41 Major depressive disorder, recurrent, in partial remission; F41.1 Generalized anxiety disorder; E78.9 Disorder of lipoprotein metabolism, unspecified; E55.9 Vitamin D deficiency, unspecified; E66.09 Other obesity due to excess calories; Z68.38 Body mass index [BMI] 38.0-38.9, adult; R79.89 Other specified abnormal findings of blood chemistry; Z91.09 Other allergy status, other than to drugs and biological substances; K76.0 Fatty (change of) liver, not elsewhere classified; E04.9 Nontoxic goiter, unspecified; R73.01 Impaired fasting glucose; Z71.3 Dietary counseling and surveillance
CPT/HCPCS: 36415; 80053; 80061; 84443; 85025

== ENCOUNTER 2024-03-16 15:34 | Outpatient (AMB) | payer OTHER, SELFPAY ==
[2024-03-16 15:37] VITALS: BP 118/82; PULSE 81; O2SAT 99; BMI 38.5
--- NOTE | 2024-03-16 15:37 | A.OFFPC_ITS ---
Vital Signs 03/16/24 15:37 Height 5 ft 8 in Weight 253 lb BMI 38.5 BP 118/82 Blood Pressure Location Lt brachial Position Sitting Pulse 81 Pulse Source Pulse Oximeter Pulse Oximetry (%) 99 Oxygen Delivery Method Room Air Intake Visit Reasons: Annual PE Allergies Penicillins [PCN] Allergy (Intermediate, Verified 03/16/24 15:38) RASH Medication List - Last Reconciled 03/16/24 by Debbie Lozada MD bupropion HCl XL (Wellbutrin XL) 300 mg PO QAM lorazepam 0.5 mg PO BEDTIME PRN omega 4-eqy-hgh-fish oil 1,000 (120-180) mg (Fish Oil) 1 cap PO DAILY venlafaxine ER 37.5 mg PO BEDTIME Tobacco use date assessed: 03/16/24 Dental Screening Dental Screen Date: 03/16/24 Did you have a dental visit in the last 12 months?: Yes Did you have a dental problem in the last 6 months where you did not have access to dental care?: No Was dental information given to patient?: Patient has dentist HPI Annual PE HPI Details Chief Complaint Concern about recent laboratory results and management plan. patient came in for physical exam appointment Health Maintenance - Discussed prediabetes with fasting glu cose level of 111 mg/dL, indicating lifestyle modifications are necessary. - Elevated liver function tests: AST at 69 U/L and ALT at 160 U/L need further assessment. - LDL cholesterol level of 133 mg/dL, di scussed as within acceptable range but requires lifestyle modification. - Thyroid is stable, recent ultrasound d one in April 2020 showed multiple sub- centimeter nodules, non-suspicious. - Mammogram overdue; reminder to complet e. - Colonoscopy was reviewed, next is due in February 2026 after prior findings of polyps. - Discussed anxiety management with curr ent treatment. - Encouraged lifestyle modifications for weight management. Assessment and Plan 48-year-old female with a history of pre diabetes and fatty liver disease presenting for a physical examination and review of recent laboratory results. The patient has elevated liver enzymes, which may indicate progression of fatty liver disease. Prediabetes persists with a fasting glucose level at 111 mg/dL. Thyroid nodules identified by a prior ultrasound do not appear suspicious. Additionally, hyperlipidemia is present but within an acceptable range for LDL cholesterol. Anxiety and depression are being managed with current medications. The patient discussed readiness for potential lifestyle changes. 1. Anxiety And Depression Continue current medications: venlafaxine, lorazepam as needed, and bupropion. Discuss benefits of lifestyle changes and psychotherapy. 2. Thyroid Nodules Observe and follow with repeat imaging as needed. Current ultrasound findings do not require intervention. 3. Prediabetes Encourage lifestyle interventions such as diet modification and increased physical activity. Follow-up on potential for using GLP-1 receptor agonist injections if deemed necessary and insurance covered. 4. Elevated Liver Enzymes Order liver ultrasound and hepatitis profile to assess for underlying causes. Encourage dietary changes to address fatty liver progression. 5. Hyperlipidemia Advise continued lifestyle modifications to improve cholesterol levels and prevent cardiovascular disease. 6. Obesity Explore use of GLP-1 receptor agonists; further weight loss strategies to be discussed including diet and exercise. Monitor regular progress and adjust plan as needed. 7. Fatty Liver Disease Promote dietary adjustments and regular exercise. Monitor liver function tests and imaging results for progression. Medications - Venlafaxine 37.5 mg, for anxiety - Lorazepam 0.5 mg, taken sparingly for anxiety - Bupropion 300 mg, daily for depression Employment - Obtained a new job which has positivel y impacted anxiety and depression. Diagnostic results - Labs: Fasting glucose 111 mg/dL, AST 6 9 U/L, ALT 160 U/L, LDL cholesterol 133 mg/dL - Imaging: Thyroid ultrasound (April 05) showed multiple sub-centimeter nodules, non-suspicious; Abdominal ultrasound (2021) showed fatty liver Physical Exam General: Cooperative, healthy appearing, comfortable, no acute distress and well developed Orientation: Patient oriented x3 Limitations: No limitations Head: Normal to inspection Ears: Hearing grossly normal bilaterally Nose: Normal external nose present Face and sinus: Normal facial exam Eyes: Appearance normal, both eyes and all related structures Neck: Normal visual inspection and supple, thyroid palpable Breast exam was through OBGYN Respiratory: Normal respiratory effort and able to speak in complete sentences. Clear to auscultation bilaterally Cardiovascular: S1 and S2 GI: Normal to inspection. Soft to palpation and nontender Skin: Turgor normal, no rash, no moles, no skin problems Neuro: Patient oriented x3, motor sensory intact, Romberg negative, tandem walk passed Extremities: Normal to inspection, no swelling, knees okay, arms and shoulders okay, back is all right, no pain Patient Instructions - Schedule mammogram at your earliest co nvenience. - Engage in regular exercise and attend to dietary modifications for weight loss. - Follow up on the potential new medicat ion; GLP-1 receptor agonist injection if covered by insurance. - Adhere to current medication regimen f or anxiety and depression. - Return for follow-up post-vacation for continued monitoring. Once injections picked up call us for nursing visits so we can teach you how to administer Follow-up will be needed within 4-6 weeks after starting the medication, lab order placed complete that before visit [facility] Medical History Vitamin D deficiency Goiter HLD (hyperlipidemia) Breast calcification, left Obesity Environmental allergies Lipid disorder Anxiety, generalized Depression, major, recurrent, in partial remission Surgical History History of esophagogastroduodenoscopy (EGD) Hx of colonoscopy History of lumbar surgery History of section Family History Father HTN (hypertension) CHF (congestive heart failure) CVD (cardiovascular disease) Hypercholesterolemia Hx of CABG Myocardial infarction Mother Osteoporosis HTN (hypertension) Brother HTN (hypertension) Hypercholesterolemia Paternal Grandfather Colon cancer Social History Housing: House Alcohol intake: current Alcohol intake frequency: holidays/special occasions only Patient Tobacco Use Status: Former Tobacco user Cigarette Packs Per Day: 1 Years Smoked: 30 e-Cigarette/Vaping Use: Never Used service: No Current occupational status: employed Cognitive needs: Yes Hearing needs: No Vision needs: Yes Questionnaire Thrive Questionnaire Date Thrive assessed: 12/16/23 I am a: Patient What is your living situation today?: I have a steady place to live Within the past 12 months, did the food you bought not last and you didn't have the money to get more?: Never true Within the past 12 months, did you worry whether your food would run out before you got money to buy more?: Never true Do you have trouble paying for medicines?: No Do you have trouble getting transportation to medical appointments?: No Do you have trouble paying your heating and electricity bill?: No Do you have trouble taking care of your child, family member or friend?: No Do you have trouble with day-to-day activities such as bathing, preparing meals, shopping, managing finances, etc.?: No Are you currently unemployed and looking for a job?: No Are you interested in more education?: No Please select the resources that you would like help with: None Currently or been in a relationship where the following occur: No concerns reported THRIVE Score: 0 CARLA-7 AMB Questionnaire CARLA-7 Date CARLA - 7 assessed: 12/16/23 Source: Developed by Drs. Igor Nagel, Juanita Pulido, Shamar Rust and colleagues, with an educational ojseph from [employer]. Review of Systems Const Denies chills and Denies fever(s) ENT Denies epistaxis and Denies nasal discharge Card Denies chest pain Resp Denies chest congestion, Denies cough and Denies hemoptysis GI Denies diarrhea and Denies nausea Skin/Breast Denies rash Neuro Reports no additional complaints Psych Reports no additional complaints Endo Reports no additional complaints Physical exam (Primary Care) Vital Signs: Last Vital Signs Pulse 81 03/16/24 15:37 BP 118/82 03/16/24 15:37 Pulse Ox 99 03/16/24 15:37 Oxygen Delivery Method Room Air 03/16/24 15:37 BMI result Body Mass Index 38.5 Tobacco/Smoking Status: Tobacco use Status Tobacco use date assessed 03/16/24 03/16/24 15:41 Patient Tobacco Use Status Former Tobacco user 03/16/24 15:41 e-Cigarette/Vaping Use Never Used 03/16/24 15:41 Thrive Assessment: Date of Thrive Assessment Date Thrive assessed 12/16/23 03/16/24 15:41 Currently or been in a relationship where the following occur: No concerns reported Coding Level of Care Code Est Pt Level 4 (16807) Est Pt Prev Care 40-64y(08529) Diagnoses Encounter for general adult medical examination with abnormal findings Z00.01 LFT elevation R79.89 Hepatic steatosis K76.0 Class 2 obesity due to excess calories without serious comorbidity with body mass index (BMI) of 38.0 to 38.9 in adult E66.812; E66.09; Z68.38 Obesity classification: adult class 2 (BMI 35 - 39.9) Serious obesity comorbidity presence: without serious comorbidity Body mass index: BMI 38.0-38.9 Depression, major, recurrent, in partial remission F33.41 Anxiety, generalized F41.1 Goiter E04.9 Impaired fasting blood sugar R73.01 Assessment & Plan Assessment & Plan (1) Encounter for general adult medical examination with abnormal findings: Code(s): Z00.01 - Encounter for general adult medical examination with abnormal findings Category: Medical (2) LFT elevation: Code(s): R79.89 - Other specified abnormal findings of blood chemistry Category: Medical (3) Hepatic steatosis: Comment: Elevation liver enzymes likely fatty liver Code(s): K76.0 - Fatty (change of) liver, not elsewhere classified Category: Medical (4) Obesity due to excess calories: Code(s): E66.09 - Other obesity due to excess calories Category: Medical Qualifiers: Obesity classification: adult class 2 (BMI 35 - 39.9) Serious obesity comorbidity presence: without serious comorbidity Body mass index: BMI 38.0- 38.9 Qualified Code(s): E66.812 - Obesity, class 2; E66.09 - Other obesity due to excess calories; Z68.38 - Body mass index [BMI] 38.0-38.9, adult (5) Depression, major, recurrent, in partial remission: Code(s): F33.41 - Major depressive disorder, recurrent, in partial remission Category: Medical (6) Anxiety, generalized: Code(s): F41.1 - Generalized anxiety disorder Category: Medical (7) Goiter: Code(s): E04.9 - Nontoxic goiter, unspecified Category: Medical (8) Impaired fasting blood sugar: Code(s): R73.01 - Impaired fasting glucose Category: Medical Plan Chief Complaint Concern about recent laboratory results and management plan. patient came in for physical exam appointment Health Maintenance - Discussed prediabetes with fasting glucose level of 111 mg/dL, indicating lifestyle modifications are necessary. - Elevated liver function tests: AST at 69 U/L and ALT at 160 U/L need further assessment. - LDL cholesterol level of 133 mg/dL, discussed as within acceptable range but requires lifestyle modification. - Thyroid is stable, recent ultrasound done in April 2020 showed multiple sub- centimeter nodules, non-suspicious. - Mammogram overdue; reminder to complete. - Colonoscopy was reviewed, next is due in February 2026 after prior findings of polyps. - Discussed anxiety management with current treatment. - Encouraged lifestyle modifications for weight management. Assessment and Plan 48-year-old female with a history of prediabetes and fatty liver disease presenting for a physical examination and review of recent laboratory results. The patient has elevated liver enzymes, which may indicate progression of fatty liver disease. Prediabetes persists with a fasting glucose level at 111 mg/dL. Thyroid nodules identified by a prior ultrasound do not appear suspicious. Additionally, hyperlipidemia is present but within an acceptable range for LDL cholesterol. Anxiety and depression are being managed with current medications. The patient discussed readiness for potential lifestyle changes. 1. Anxiety And Depression Continue current medications: venlafaxine, lorazepam as needed, and bupropion. Discuss benefits of lifestyle changes and psychotherapy. 2. Thyroid Nodules Observe and follow with repeat imaging as needed. Current ultrasound findings do not require intervention. 3. Prediabetes Encourage lifestyle interventions such as diet modification and increased physical activity. Follow-up on potential for using GLP-1 receptor agonist injections if deemed necessary and insurance covered. 4. Elevated Liver Enzymes Order liver ultrasound and hepatitis profile to assess for underlying causes. Encourage dietary changes to address fatty liver progression. 5. Hyperlipidemia Advise continued lifestyle modifications to improve cholesterol levels and prevent cardiovascular disease. 6. Obesity Explore use of GLP-1 receptor agonists; further weight loss strategies to be discussed including diet and exercise. Monitor regular progress and adjust plan as needed. 7. Fatty Liver Disease Promote dietary adjustments and regular exercise. Monitor liver function tests and imaging results for progression. Medications - Venlafaxine 37.5 mg, for anxiety - Lorazepam 0.5 mg, taken sparingly for anxiety - Bupropion 300 mg, daily for depression Employment - Obtained a new job which has positively impacted anxiety and depression. Diagnostic results - Labs: Fasting glucose 111 mg/dL, AST 69 U/L, ALT 160 U/L, LDL cholesterol 133 mg/dL - Imaging: Thyroid ultrasound (April 2020) showed multiple sub-centimeter nodules, non-suspicious; Abdominal ultrasound (2021) showed fatty liver Physical Exam General: Cooperative, healthy appearing, comfortable, no acute distress and well developed Orientation: Patient oriented x3 Limitations: No limitations Head: Normal to inspection Ears: Hearing grossly normal bilaterally Nose: Normal external nose present Face and sinus: Normal facial exam Eyes: Appearance normal, both eyes and all related structures Neck: Normal visual inspection and supple, thyroid palpable Breast exam was through OBGYN Respiratory: Normal respiratory effort and able to speak in complete sentences. Clear to auscultation bilaterally Cardiovascular: S1 and S2 GI: Normal to inspection. Soft to palpation and nontender Skin: Turgor normal, no rash, no moles, no skin problems Neuro: Patient oriented x3, motor sensory intact, Romberg negative, tandem walk passed Extremities: Normal to inspection, no swelling, knees okay, arms and shoulders okay, back is all right, no pain Patient Instructions - Schedule mammogram at your earliest convenience. - Engage in regular exercise and attend to dietary modifications for weight loss. - Follow up on the potential new medication; GLP-1 receptor agonist injection if covered by insurance. - Adhere to current medication regimen for anxiety and depression. - Return for follow-up post-vacation for continued monitoring. Once injections picked up call us for nursing visits so we can teach you how to administer Follow-up will be needed within 4-6 weeks after starting the medication, lab order placed complete that before visit Orders: Orders Amylase 4 Weeks E66.09 - Other obesity due to excess calories, K76.0 - Fatty (change of) liver, not elsewhere classified, R79.89 - Other specified abnormal findings of blood chemistry Hepatitis A,B,C Profile Today R79.89 - Other specified abnormal findings of blood chemistry Lipase 4 Weeks E66.09 - Other obesity due to excess calories, K76.0 - Fatty (change of) liver, not elsewhere classified, R79.89 - Other specified abnormal findings of blood chemistry Comprehensive Met. Panel 4 Weeks E66.09 - Other obesity due to excess calories, K76.0 - Fatty (change of) liver, not elsewhere classified, R79.89 - Other specified abnormal findings of blood chemistry TSH reflex Free T4 4 Weeks E66.09 - Other obesity due to excess calories, K76.0 - Fatty (change of) liver, not elsewhere classified, R79.89 - Other specified abnormal findings of blood chemistry Medications: New Wegovy (semaglutide (weight loss)) administer weeks 1 through 4 of therapy 0.25 mg (0.5 mL) subcut QWEEK 2 mL 1RF NS
== END 2024-03-16 16:05 | disposition home or self-care (01) ==
PROVIDERS: PCP Internal Medicine; Visit Provider Internal Medicine
DX: Z00.00 Encounter for general adult medical examination without abnormal findings (principal); K76.0 Fatty (change of) liver, not elsewhere classified; Z68.38 Body mass index [BMI] 38.0-38.9, adult; F33.41 Major depressive disorder, recurrent, in partial remission; E66.812 Obesity, class 2; F41.1 Generalized anxiety disorder; E04.9 Nontoxic goiter, unspecified; R73.01 Impaired fasting glucose

== ENCOUNTER 2024-05-22 13:18 | Outpatient (AMB) | payer OTHER, SELFPAY ==
[2024-05-22 13:21] VITALS: BP 122/74; PULSE 85; RESP 18; TEMP 36.6; O2SAT 98; BMI 37.8
--- NOTE | 2024-05-22 13:21 | A.OFFPC_ITS ---
Vital Signs 05/22/24 13:21 Height 5 ft 8 in Weight 248 lb 6 oz BMI 37.8 BP 122/74 Blood Pressure Location Rt brachial Position Sitting Respiration 18 Pulse 85 Pulse Source Pulse Oximeter Temp 98 F Temp Source Oral Pulse Oximetry (%) 98 Oxygen Delivery Method Room Air Intake Visit Reasons: Weight Check Allergies Penicillins [PCN] Allergy (Intermediate, Verified 05/22/24 13:22) RASH Medication List - Last Reconciled 05/22/24 by Debbie Lozada MD bupropion HCl XL (Wellbutrin XL) 300 mg PO QAM lorazepam 0.5 mg PO BEDTIME PRN omega 8-wlc-dbl-fish oil 1,000 (120-180) mg (Fish Oil) 1 cap PO DAILY venlafaxine ER 37.5 mg PO BEDTIME Wegovy (semaglutide (weight loss)) 0.25 mg (0.5 mL) subcut QWEEK NS Tobacco use date assessed: 03/16/24 Dental Screening Dental Screen Date: 03/16/24 HPI Weight Check HPI Details Patient is a 48-year-old female came in today for weight management visit - has been experiencing excessive burpin g since started with a Wegovy injection - Mild nausea occurs occasionally. - The patient started on a 0.25 mg dose of Wegovy after insurance-related delays, leading to weight loss since starting in April. - Mildly elevated liver enzymes were obs erved, prompting further monitoring. Previous liver imaging via a CT scan in April 2023 revealed no abnormalities. - The patient's medication regimen inclu eddie Bupropion and Venlafaxine for the management of major depressive disorder and generalized anxiety disorder. Problem List - Excessive burping - Weight management - Elevated liver enzymes - Generalized anxiety disorder - Major depressive disorder Patient Instructions - increase the dose of Wegovy 2.5 mg un til for next three-month. - Schedule an ultrasound regarding liver enzyme monitoring. - Complete ordered laboratory tests befo re the next appointment. - Maintain awareness of any worsening of symptoms or side effects, and report them as deemed necessary. - Follow up in two and a half months miracle or to completing the current medication regimen. Review of Systems - Gastrointestinal: Reports excessive bu rping and occasional mild nausea. - General: No fever no chills - Neurological: No headaches no dizziness - Ear nose throat: No sore throat no hearing difficulty no ear pain - Cardiovascular: No syncope, no chest pain, no palpitations - Endocrine: No polyuria polydipsia no heat intolerance - Genitourinary: No dysuria , no blood in urine Physical Exam General: No acute distress HEENT: No acute findings Neck: Supple Respiratory system: Able to talk in full sentences, no audible wheeze cardiovascular: S1-S2 regular in rate and rhythm Gastrointestinal: No pain, excessive burping, a little nausea here and there Extremities: No new findings 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 intact Skin: Normal turgor [facility] Medical History Vitamin D deficiency Goiter HLD (hyperlipidemia) Breast calcification, left Obesity Environmental allergies Lipid disorder Anxiety, generalized Depression, major, recurrent, in partial remission Surgical History History of esophagogastroduodenoscopy (EGD) Hx of colonoscopy History of lumbar surgery History of section Family History Father HTN (hypertension) CHF (congestive heart failure) CVD (cardiovascular disease) Hypercholesterolemia Hx of CABG Myocardial infarction Mother Osteoporosis HTN (hypertension) Brother HTN (hypertension) Hypercholesterolemia Paternal Grandfather Colon cancer Social History Housing: House Alcohol intake: current Alcohol intake frequency: holidays/special occasions only Patient Tobacco Use Status: Former Tobacco user Cigarette Packs Per Day: 1 Years Smoked: 30 e-Cigarette/Vaping Use: Never Used service: No Current occupational status: employed Cognitive needs: Yes Hearing needs: No Vision needs: Yes Questionnaire PHQ-9 Over the last 2 weeks, how often have you been bothered by any of the following problems? 1. Little interest or pleasure in doing things: not at all 2. Feeling down, depressed, or hopeless: not at all 3. Trouble falling or staying asleep, or sleeping too much: not at all 4. Feeling tired or having little energy: not at all 5. Poor appetite or overeating: not at all 6. Feeling bad about yourself - or that you are a failure or have let yourself or your family down: not at all 7. Trouble concentrating on things, such as reading the newspaper or watching television: not at all 8. Moving or speaking so slowly that other people could have noticed. Or the opposite - being so fidgety or restless that you have been moving around a lot more than usual: not at all 9. Thoughts that you would be better off or of hurting yourself in some way: not at all Total score: 0 Depression Screening Interpretation: Negative Depression Screening Done: Yes 38936 - PHQ-9 Billing: Yes Source: Developed by Drs. Igor Nagel, Juanita Pulido, Shamar Rust and colleagues, with an educational joseph from [employer]. Thrive Questionnaire Date Thrive assessed: 12/16/23 I am a: Patient What is your living situation today?: I have a steady place to live Within the past 12 months, did the food you bought not last and you didn't have the money to get more?: Never true Within the past 12 months, did you worry whether your food would run out before you got money to buy more?: Never true Do you have trouble paying for medicines?: No Do you have trouble getting transportation to medical appointments?: No Do you have trouble paying your heating and electricity bill?: No Do you have trouble taking care of your child, family member or friend?: No Do you have trouble with day-to-day activities such as bathing, preparing meals, shopping, managing finances, etc.?: No Are you currently unemployed and looking for a job?: No Are you interested in more education?: No Please select the resources that you would like help with: None Currently or been in a relationship where the following occur: No concerns reported THRIVE Score: 0 AUDIT C Alcohol Use Questionnaire (AUDIT-C) 1. How often do you have a drink containing alcohol?: 2-4 times a month 2. How many drinks containing alcohol do you have on a typical day when you are drinking?: 1 or 2 3. How often do you have six or more drinks on one occasion?: Never Total Score: 2 CARLA-7 AMB Questionnaire CARLA-7 Date CARLA - 7 assessed: 12/16/23 Feeling nervous, anxious, or on edge: 2 = More than half the days Not being able to stop or control worryin = Not at all Worrying too much about different things: 1 = Several days Trouble relaxin = Not at all Being so restless that it is hard to sit still: 0 = Not at all Becoming easily annoyed or irritable: 1 = Several days Feeling afraid as if something awful might happen: 0 = Not at all Total CARLA-7 score (0-4 normal; 5-9 mild; 10-14 moderate; 15-21 severe): 4 Source: Developed by Drs. Igor Nagel, Juanita Pulido, Shamar Rust and colleagues, with an educational joseph from [employer]. CARLA-7 Assessment Billing CARLA-7 Assessment Tool: CARLA-7 Assessment 05138 Physical exam (Primary Care) Vital Signs: Last Vital Signs Temp 98 F 05/22/24 13:21 Pulse 85 05/22/24 13:21 Resp 18 05/22/24 13:21 BP 122/74 05/22/24 13:21 Pulse Ox 98 05/22/24 13:21 Oxygen Delivery Method Room Air 05/22/24 13:21 BMI result Body Mass Index 37.8 Tobacco/Smoking Status: Tobacco use Status Tobacco use date assessed 03/16/24 05/22/24 13:39 Patient Tobacco Use Status Former Tobacco user 05/22/24 13:39 e-Cigarette/Vaping Use Never Used 05/22/24 13:39 PHQ-9: PHQ-9 Score PHQ-9: Total score 0 05/22/24 13:39 Depression Screening Interpretation: Negative Thrive Assessment: Date of Thrive Assessment Date Thrive assessed 12/16/23 05/22/24 13:39 Currently or been in a relationship where the following occur: No concerns reported Coding Level of Care Code Est Pt Level 4 (05643) Diagnoses LFT elevation R79.89 Class 2 obesity due to excess calories without serious comorbidity with body mass index (BMI) of 38.0 to 38.9 in adult E66.812; E66.09; Z68.38 Obesity classification: adult class 2 (BMI 35 - 39.9) Serious obesity comorbidity presence: without serious comorbidity Body mass index: BMI 38.0-38.9 Depression, major, recurrent, in partial remission F33.41 Anxiety, generalized F41.1 Impaired fasting blood sugar R73.01 Additional Codes PHQ-9 - 60139 - PHQ-9 Billing: Yes ([id number]) CARLA-7 Assessment Billing - CARLA-7 Assessment Tool: CARLA-7 Assessment 90897 ([id number]) Assessment & Plan Assessment & Plan (1) LFT elevation: Code(s): R79.89 - Other specified abnormal findings of blood chemistry Category: Medical (2) Obesity due to excess calories: Code(s): E66.09 - Other obesity due to excess calories Category: Medical Qualifiers: Obesity classification: adult class 2 (BMI 35 - 39.9) Serious obesity comorbidity presence: without serious comorbidity Body mass index: BMI 38.0- 38.9 Qualified Code(s): E66.812 - Obesity, class 2; E66.09 - Other obesity due to excess calories; Z68.38 - Body mass index [BMI] 38.0-38.9, adult (3) Depression, major, recurrent, in partial remission: Code(s): F33.41 - Major depressive disorder, recurrent, in partial remission Category: Medical (4) Anxiety, generalized: Code(s): F41.1 - Generalized anxiety disorder Category: Medical (5) Impaired fasting blood sugar: Code(s): R73.01 - Impaired fasting glucose Category: Medical Plan Patient is a 48-year-old female came in today for weight management visit - has been experiencing excessive burping since started with a Wegovy injection - Mild nausea occurs occasionally. - The patient started on a 0.25 mg dose of Wegovy after insurance-related delays, leading to weight loss since starting in April. - Mildly elevated liver enzymes were observed, prompting further monitoring. Previous liver imaging via a CT scan in April 2023 revealed no abnormalities. - The patient's medication regimen includes Bupropion and Venlafaxine for the management of major depressive disorder and generalized anxiety disorder. Problem List - Excessive burping - Weight management - Elevated liver enzymes - Generalized anxiety disorder - Major depressive disorder Patient Instructions - increase the dose of Wegovy 2.5 mg until for next three-month. - Schedule an ultrasound regarding liver enzyme monitoring. - Complete ordered laboratory tests before the next appointment. - Maintain awareness of any worsening of symptoms or side effects, and report them as deemed necessary. - Follow up in two and a half months prior to completing the current medication regimen. Orders: Orders US abdomen limited Today R79.89 - Other specified abnormal findings of blood chemistry Medications: Changed From Wegovy (semaglutide (weight loss)) administer weeks 1 through 4 of therapy 0.25 mg (0.5 mL) subcut QWEEK 2 mL 1RF NS To semaglutide (weight loss) administer weeks 1 through 4 of therapy 0.5 mg (0.5 mL) subcut QWEEK 90 days 6.5 mL 1RF Discontinued lorazepam Discontinued Reason: Doctor's Order 0.5 mg PO BEDTIME PRN 30 tabs 0RF anxiety
== END 2024-05-22 13:40 | disposition home or self-care (01) ==
PROVIDERS: PCP Internal Medicine; Visit Provider Internal Medicine
DX: R79.89 Other specified abnormal findings of blood chemistry (principal); E66.812 Obesity, class 2; E66.09 Other obesity due to excess calories; Z68.38 Body mass index [BMI] 38.0-38.9, adult; F33.41 Major depressive disorder, recurrent, in partial remission; F41.1 Generalized anxiety disorder; R73.01 Impaired fasting glucose

== ENCOUNTER → 2024-05-22 13:18 | Outpatient (BNVA) | payer OTHER, SELFPAY | PROVIDERS: PCP Internal Medicine; Visit Provider Internal Medicine | DX: R79.89 Other specified abnormal findings of blood chemistry (principal); E66.812 Obesity, class 2; E66.09 Other obesity due to excess calories; Z68.38 Body mass index [BMI] 38.0-38.9, adult; F33.41 Major depressive disorder, recurrent, in partial remission; F41.1 Generalized anxiety disorder; R73.01 Impaired fasting glucose; Z79.899 Other long term (current) drug therapy | CPT/HCPCS: 96127 ==

== ENCOUNTER 2024-06-14 08:59 | Outpatient (REF) | payer OTHER, SELFPAY ==
--- NOTE | ~2024-06-14 | US_ITS ---
EXAMINATION: US ABDOMEN LIMITED HISTORY: R79.89 - Other specified abnormal findings of blood chemistry TECHNIQUE: Real-time grayscale ultrasound imaging of the right upper quadrant was performed and images were reviewed. COMPARISON: Comparison is made with the prior examination dated 12/01/2021. FINDINGS: Liver: The right lobe of the liver measures 18.1 cm in size. The left lobe of the liver measures 13.4 cm in size. The liver demonstrates increased echotexture, consistent with steatosis. No focal mass or intrahepatic biliary ductal dilatation is identified. There is normal hepatopedal flow in the portal vein. Gallbladder and biliary tree: The gallbladder is unremarkable, without evidence of calculi, wall thickening, or pericholecystic fluid. There is no sonographic Warren sign. The common bile duct is normal in caliber measuring 3 mm. Right Kidney: The right kidney measures 12.7 cm in length. The right kidney is unremarkable, without evidence of masses, hydronephrosis, or calculi. Pancreas: The pancreatic head, neck, and body are unremarkable. The pancreatic tail is obscured by bowel gas. Abdominal aorta and inferior vena cava: The visualized portions of the abdominal aorta and inferior vena cava are normal in caliber. There is no free fluid in the right upper quadrant. US/US abdomen limited IMPRESSION: Hepatomegaly and hepatic steatosis. Electronically signed by: Igor Massey MD 06/14/2024 09:31 AM EDT
== END 2024-06-14 09:00 | disposition home or self-care (01) ==
LOC: HO.HMGCX 08:59
PROVIDERS: PCP Internal Medicine; Visit Provider Internal Medicine
DX: R79.89 Other specified abnormal findings of blood chemistry (principal)
CPT/HCPCS: 76705

== ENCOUNTER → 2024-06-14 09:01 | Outpatient (BNV) | payer OTHER, SELFPAY | PROVIDERS: PCP Internal Medicine; Visit Provider Radiology Diagnostic Radiology | DX: K76.0 Fatty (change of) liver, not elsewhere classified (principal); R16.0 Hepatomegaly, not elsewhere classified | CPT/HCPCS: 76705 ==

== ENCOUNTER 2024-08-22 08:18 | Outpatient (REF) | payer OTHER, SELFPAY ==
[2024-08-22 12:05] LABS: HBc Num1 0.07 S/CO (0.00-0.79); HBsAGNum1 0.42 S/CO (0.00-0.99); Hepatitis B Core Antibody Nonreactive (Nonreactive); Hepatitis B Surface Antigen Negative (Negative); ~HepC Num1 0.08 S/CO (0.00-0.79); ~Hepatitis A Antibody IgM Nonreactive (Nonreactive); ~Hepatitis B Surface Antibody NONREACTIVE (Nonreactive); ~Hepatitis C Antibody Nonreactive (Nonreactive)
[2024-08-22 12:21] LABS: Alanine Aminotransferase 46 U/L (0-31); Albumin Level 4.5 g/dL (3.5-5.0); Alkaline Phosphatase 84 U/L (39-117); Amylase 66 U/L (28-100); Anion Gap 10 (12-20); Aspartate Amino Transferase 30 U/L (5-31); Bilirubin Total 0.4 mg/dL (0.0-1.0); Blood Urea Nitrogen 14 mg/dL (9-16); Calcium 9.4 mg/dL (8.4-10.2); Carbon Dioxide 27 mmol/L (22-29); Chloride 108 mmol/L (96-108); Estimated Glomerular Filt Rate > 60; Glucose Random 100 mg/dL (60-115); Lipase 27 U/L (8-78); Potassium 4.4 mmol/L (3.3-5.1); Sodium 141 mmol/L (135-145); TSH reflex Free T4 1.06 uIU/mL (0.32-4.0); Total Protein 7.1 g/dL (6.5-8.0)
== END 2024-08-22 08:19 | disposition home or self-care (01) ==
LOC: HO.10HDL 08:18
PROVIDERS: Visit Provider Internal Medicine
DX: R79.89 Other specified abnormal findings of blood chemistry (principal); K76.0 Fatty (change of) liver, not elsewhere classified; E66.09 Other obesity due to excess calories
CPT/HCPCS: 36415; 80053; 82150; 83690; 84443; 86704; 86706; 86709; 86803; 87340

== ENCOUNTER 2024-08-24 14:18 | Outpatient (AMB) | payer OTHER, SELFPAY ==
--- NOTE | 2024-08-24 14:20 | A.OFFPC_ITS ---
Vital Signs 08/24/24 14:22 Height 5 ft 8 in Weight 238 lb BMI 36.2 BP 120/78 Blood Pressure Location Rt brachial Position Sitting Pulse 80 Pulse Source Pulse Oximeter Temp 97.6 F Temp Source Oral Pulse Oximetry (%) 98 Oxygen Delivery Method Room Air Intake Visit Reasons: f/u-reschedule Allergies Penicillins [PCN] Allergy (Intermediate, Verified 05/22/24 13:22) RASH Medication List - Last Reconciled 08/24/24 by Debbie Lozada MD bupropion HCl XL (Wellbutrin XL) 300 mg PO QAM omega 8-bia-ikk-fish oil 1,000 (120-180) mg (Fish Oil) 1 cap PO DAILY semaglutide (weight loss) 1 mg (0.5 mL) subcut QWEEK 90 days venlafaxine ER 37.5 mg PO BEDTIME Tobacco use date assessed: 08/24/24 Dental Screening Dental Screen Date: 08/24/24 Did you have a dental visit in the last 12 months?: Yes Did you have a dental problem in the last 6 months where you did not have access to dental care?: No Was dental information given to patient?: Patient has dentist HPI f/u-reschedule HPI Details History - The patient is a 48-year-old female pr esenting for a follow-up regarding weight management and reported nausea. - She has been experiencing nausea, typi bucky occurring the day after her semaglutide injection, which she began in June 2024. The nausea has improved when she adheres to a regimen of probiotics and vitam ins. - She has been taking Wellbutrin and emily lafaxine, with no additional depressive symptoms noted. - The patient reports a past weight of 2 47 pounds in December of the previous year, with a weight of 248.6 pounds recorded in May; today's weight is verified to be 235 pounds. She states the weight loss has been slower than desired, often fluctuating within a range of three to four pounds over the last four weeks. - She indicates a sensitivity to greasy foods and has recently suspected dairy sensitivity, experiencing discomfort and nausea after consuming such foods. - Constipation is noted occasionally, fo r which she takes a stool softener if needed and incorporates oatmeal for fiber into her diet. Problem List - Nausea - Obesity - Constipation - Dietary intolerance to greasy and dair y foods Patient Instructions - Continue current semaglutide 1 mg dosa ge and avoid increasing to prevent nausea. - Avoid greasy foods and experiment with reducing dairy intake to identify potential sensitivities. - Maintain a food diary to track which f oods cause discomfort or nausea. - Stay consistent with taking probiotics and daily vitamins. - Use fennel seed and mint infusion as a natural remedy for nausea. Review of Systems - General: No fever no chills - Neurological: No headaches no dizziness - Ear nose throat: No sore throat no hearing difficulty no ear pain - Cardiovascular: No syncope, no chest pain, no palpitations - Gastrointestinal: No vomiting or diarrhea - Endocrine: No polyuria polydipsia no heat intolerance - Genitourinary: No dysuria , no blood in urine Physical Exam General: No acute distress HEENT: No acute findings Neck: Supple Respiratory system: Able to talk in full sentences, no audible wheeze, lungs are clear Cardiovascular: S1-S2 regular in rate and rhythm Gastrointestinal: No pain, occasional constipation, no diarrhea Extremities: No new findings PFSH Medical History Vitamin D deficiency Goiter HLD (hyperlipidemia) Breast calcification, left Obesity Environmental allergies Lipid disorder Anxiety, generalized Depression, major, recurrent, in partial remission Surgical History History of esophagogastroduodenoscopy (EGD) Hx of colonoscopy History of lumbar surgery History of section Family History Father HTN (hypertension) CHF (congestive heart failure) CVD (cardiovascular disease) Hypercholesterolemia Hx of CABG Myocardial infarction Mother Osteoporosis HTN (hypertension) Brother HTN (hypertension) Hypercholesterolemia Paternal Grandfather Colon cancer Social History Housing: House Alcohol intake: current Alcohol intake frequency: holidays/special occasions only Patient Tobacco Use Status: Former Tobacco user Cigarette Packs Per Day: 1 Years Smoked: 30 e-Cigarette/Vaping Use: Never Used service: No Current occupational status: employed Cognitive needs: Yes Hearing needs: No Vision needs: Yes Questionnaire Thrive Questionnaire Date Thrive assessed: 05/22/24 I am a: Patient What is your living situation today?: I have a steady place to live Within the past 12 months, did the food you bought not last and you didn't have the money to get more?: Never true Within the past 12 months, did you worry whether your food would run out before you got money to buy more?: Never true Do you have trouble paying for medicines?: No Do you have trouble getting transportation to medical appointments?: No Do you have trouble paying your heating and electricity bill?: No Do you have trouble taking care of your child, family member or friend?: No Do you have trouble with day-to-day activities such as bathing, preparing meals, shopping, managing finances, etc.?: No Are you currently unemployed and looking for a job?: No Are you interested in more education?: No Please select the resources that you would like help with: None Currently or been in a relationship where the following occur: No concerns reported THRIVE Score: 0 CARLA-7 AMB Questionnaire CARLA-7 Date CARLA - 7 assessed: 12/16/23 Source: Developed by Drs. Igor Nagel, Juanita Pulido, Shamar Rust and colleagues, with an educational joseph from [employer]. Physical exam (Primary Care) Vital Signs: Last Vital Signs Temp 97.6 F 08/24/24 14:22 Pulse 80 08/24/24 14:22 BP 120/78 08/24/24 14:22 Pulse Ox 98 08/24/24 14:22 Oxygen Delivery Method Room Air 08/24/24 14:22 BMI result Body Mass Index 36.2 Tobacco/Smoking Status: Tobacco use Status Tobacco use date assessed 08/24/24 08/24/24 14:24 Patient Tobacco Use Status Former Tobacco user 08/24/24 14:21 e-Cigarette/Vaping Use Never Used 08/24/24 14:21 Thrive Assessment: Date of Thrive Assessment Date Thrive assessed 05/22/24 08/24/24 14:21 Currently or been in a relationship where the following occur: No concerns reported Coding Level of Care Code Est Pt Level 3 (20481) Diagnoses Class 2 obesity due to excess calories without serious comorbidity with body mass index (BMI) of 38.0 to 38.9 in adult E66.812; E66.09; Z68.38 Obesity classification: adult class 2 (BMI 35 - 39.9) Serious obesity comorbidity presence: without serious comorbidity Body mass index: BMI 38.0-38.9 Anxiety, generalized F41.1 Depression, major, recurrent, in partial remission F33.41 LFT elevation R79.89 Impaired fasting blood sugar R73.01 Assessment & Plan Assessment & Plan (1) Obesity due to excess calories: Code(s): E66.09 - Other obesity due to excess calories Category: Medical Qualifiers: Obesity classification: adult class 2 (BMI 35 - 39.9) Serious obesity comorbidity presence: without serious comorbidity Body mass index: BMI 38.0- 38.9 Qualified Code(s): E66.812 - Obesity, class 2; E66.09 - Other obesity due to excess calories; Z68.38 - Body mass index [BMI] 38.0-38.9, adult (2) Anxiety, generalized: Code(s): F41.1 - Generalized anxiety disorder Category: Medical (3) Depression, major, recurrent, in partial remission: Code(s): F33.41 - Major depressive disorder, recurrent, in partial remission Category: Medical (4) LFT elevation: Code(s): R79.89 - Other specified abnormal findings of blood chemistry Category: Medical (5) Impaired fasting blood sugar: Code(s): R73.01 - Impaired fasting glucose Category: Medical Plan History - The patient is a 48-year-old female presenting for a follow-up regarding weight management and reported nausea. - She has been experiencing nausea, typically occurring the day after her semaglutide injection, which she began in June 2024. The nausea has improved when she adheres to a regimen of probiotics and vitamins. - She has been taking Wellbutrin and venlafaxine, with no additional depressive symptoms noted. - The patient reports a past weight of 247 pounds in December of the previous year, with a weight of 248.6 pounds recorded in May; today's weight is verified to be 235 pounds. She states the weight loss has been slower than desired, often fluctuating within a range of three to four pounds over the last four weeks. - She indicates a sensitivity to greasy foods and has recently suspected dairy sensitivity, experiencing discomfort and nausea after consuming such foods. - Constipation is noted occasionally, for which she takes a stool softener if needed and incorporates oatmeal for fiber into her diet. Problem List - Nausea - Obesity - Constipation - Dietary intolerance to greasy and dairy foods Patient Instructions - Continue current semaglutide 1 mg dosage and avoid increasing to prevent nausea. - Avoid greasy foods and experiment with reducing dairy intake to identify potential sensitivities. - Maintain a food diary to track which foods cause discomfort or nausea. - Stay consistent with taking probiotics and daily vitamins. - Use fennel seed and mint infusion as a natural remedy for nausea. Medications: Refilled semaglutide (weight loss) administer weeks 1 through 4 of therapy 1 mg (0.5 mL) subcut QWEEK 6.5 mL 0RF 90 days
[2024-08-24 14:22] VITALS: BP 120/78; PULSE 80; TEMP 36.4; O2SAT 98; BMI 36.2
== END 2024-08-24 14:41 | disposition home or self-care (01) ==
LOC: HO.HMCC 14:19
PROVIDERS: PCP Internal Medicine; Visit Provider Internal Medicine
DX: E66.812 Obesity, class 2 (principal); E66.09 Other obesity due to excess calories; Z68.38 Body mass index [BMI] 38.0-38.9, adult; F41.1 Generalized anxiety disorder; F33.41 Major depressive disorder, recurrent, in partial remission; R79.89 Other specified abnormal findings of blood chemistry; R73.01 Impaired fasting glucose

== ENCOUNTER → 2024-08-24 14:18 | Outpatient (BNVA) | payer OTHER, SELFPAY | PROVIDERS: PCP Internal Medicine; Visit Provider Internal Medicine ==

== ENCOUNTER 2024-12-11 11:45 | Outpatient (AMB) | payer OTHER, SELFPAY ==
--- NOTE | 2024-12-11 11:55 | A.OFFPC_ITS ---
Vital Signs 12/11/24 11:56 Height 5 ft 8 in Weight 235 lb BMI 35.7 BP 128/78 Blood Pressure Location Lt brachial Position Sitting Pulse 83 Pulse Source Pulse Oximeter Pulse Oximetry (%) 100 Intake Visit Reasons: f/u-reschedule Allergies Penicillins (PCN) Allergy (Intermediate, Verified 12/11/24 11:56) RASH Medication List - Last Reconciled 12/11/24 by Debbie Lozada MD bupropion HCl XL (Wellbutrin XL) 300 mg PO QAM omega 9-mcy-wnn-fish oil 1,000 (120-180) mg (Fish Oil) 1 cap PO DAILY venlafaxine ER 37.5 mg PO BEDTIME Tobacco use date assessed: 08/24/24 Dental Screening Dental Screen Date: 08/24/24 HPI f/u-reschedule HPI Details History The patient is a 49-year-old female presenting with follow-up for obesity management. Obesity: - Began Wegovy in April with an initia l dose of 1 mg. - Last dose taken approximately one cristel h ago as insurance coverage ceased. - Lost weight from 253 lbs in March t o 235 lbs at present. - No weight regain since last dose of We govy. - insurance has declined to cover Wegovy injections and Zepbound. Menopausal Symptoms: - Reports bloating, depression, fatigue, irritability, and disrupted sleep as possible menopausal symptoms. - History of being emotional and crying frequently, currently managed with venlafaxine, which has improved mood stability. - Experiences fatigue and difficulty wit h motivation, suspected to be related to menopause or perimenopause. - Sleep disturbances noted with variabil ity in sleep quality; possible contributors include hot flashes and stress due to recent life events. Depression: - Currently taking bupropion 300 mg and venlafaxine 37.5 mg. - History of significant emotional sympt oms improved by venlafaxine. Medications: - Wegovy 1 mg (previously for obesity hossein huitron, discontinued) - Bupropion 300 mg for depression - Venlafaxine 37.5 mg for menopausal sym ptoms and depression Social History: - Recently sold house and moved in with mother. - Son recently sent to college. - Reports fatigue and lack of motivation potentially impacting weight management. Problem List - Obesity - Depression - Menopausal symptoms - fatigue, experience chronic fatigue du ring the day - some nights unable to sleep or wake up frequently Diagnostic results - Labs: May (details not specified) [place] [facility] Care - Referral discussed for seeing an obesi ty specialist. Patient Instructions - Schedule and attend sleep study. - Consult obesity specialist and behavio r health/lineman service or work dispatcher as advised. - Monitor mood and menopausal symptoms w ith increased venlafaxine dose. - Consider probiotic for bloating. - Follow up examination scheduled for . Review of Systems General: No fever no chills neurological: No headaches no dizziness ear nose throat: No sore throat no hearing difficulty no ear pain cardiovascular: No syncope, no chest pain, no palpitations gastrointestinal: No nausea vomiting or diarrhea endocrine: No polyuria polydipsia no heat intolerance genitourinary: No dysuria skin: No new complaints Physical Exam general: No acute distress HEENT: No acute findings neck: Supple respiratory system: Able to talk in full sentences, no audible wheeze no stridor cardiovascular: S1-S2 RRR gastrointestinal: Occasional reflux symptoms, improved extremities: No new findings 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: Alert awake oriented x3 motor sensory intact skin: Normal turgor PFSH Medical History Vitamin D deficiency Goiter HLD (hyperlipidemia) Breast calcification, left Obesity Environmental allergies Lipid disorder Anxiety, generalized Depression, major, recurrent, in partial remission Surgical History History of esophagogastroduodenoscopy (EGD) Hx of colonoscopy History of lumbar surgery History of section Family History Father HTN (hypertension) CHF (congestive heart failure) CVD (cardiovascular disease) Hypercholesterolemia Hx of CABG Myocardial infarction Mother Osteoporosis HTN (hypertension) Brother HTN (hypertension) Hypercholesterolemia Paternal Grandfather Colon cancer Social History Housing: House Alcohol intake: current Alcohol intake frequency: holidays/special occasions only Patient Tobacco Use Status: Former Tobacco user Cigarette Packs Per Day: 1 Years Smoked: 30 e-Cigarette/Vaping Use: Never Used service: No Current occupational status: employed Cognitive needs: Yes Hearing needs: No Vision needs: Yes Questionnaire Thrive Questionnaire Date Thrive assessed: 05/22/24 I am a: Patient What is your living situation today?: I have a steady place to live Within the past 12 months, did the food you bought not last and you didn't have the money to get more?: Never true Within the past 12 months, did you worry whether your food would run out before you got money to buy more?: Never true Do you have trouble paying for medicines?: No Do you have trouble getting transportation to medical appointments?: No Do you have trouble paying your heating and electricity bill?: No Do you have trouble taking care of your child, family member or friend?: No Do you have trouble with day-to-day activities such as bathing, preparing meals, shopping, managing finances, etc.?: No Are you currently unemployed and looking for a job?: No Are you interested in more education?: No Please select the resources that you would like help with: None Currently or been in a relationship where the following occur: No concerns reported THRIVE Score: 0 CARLA-7 AMB Questionnaire CARLA-7 Date CARLA - 7 assessed: 12/16/23 Source: Developed by Drs. Igor Nagel, Juanita Pulido, Shamar Rust and colleagues, with an educational joseph from [employer]. Physical exam (Primary Care) Vital Signs: Last Vital Signs Pulse 83 12/11/24 11:56 BP 128/78 12/11/24 11:56 Pulse Ox 100 12/11/24 11:56 BMI result Body Mass Index 35.7 Tobacco/Smoking Status: Tobacco use Status Tobacco use date assessed 08/24/24 12/11/24 11:55 Patient Tobacco Use Status Former Tobacco user 12/11/24 11:55 e-Cigarette/Vaping Use Never Used 12/11/24 11:55 Thrive Assessment: Date of Thrive Assessment Date Thrive assessed 05/22/24 12/11/24 11:55 Currently or been in a relationship where the following occur: No concerns repo rted Coding Level of Care Code Est Pt Level 4 (66018) Diagnoses Daytime somnolence R40.0 Other fatigue R53.83 Fatigue type: other Class 2 obesity due to excess calories without serious comorbidity with body mass index (BMI) of 38.0 to 38.9 in adult E66.812; E66.09; Z68.38 Obesity classification: adult class 2 (BMI 35 - 39.9) Serious obesity comorbidity presence: without serious comorbidity Body mass index: BMI 38.0-38.9 Anxiety, generalized F41.1 Depression, major, recurrent, in partial remission F33.41 Impaired fasting blood sugar R73.01 Assessment & Plan Assessment & Plan (1) Daytime somnolence: Code(s): R40.0 - Somnolence Category: Medical (2) Fatigue: Code(s): R53.83 - Other fatigue Category: Medical Qualifiers: Fatigue type: other Qualified Code(s): R53.83 - Other fatigue (3) Obesity due to excess calories: Code(s): E66.09 - Other obesity due to excess calories Category: Medical Qualifiers: Obesity classification: adult class 2 (BMI 35 - 39.9) Serious obesity comorbidity presence: without serious comorbidity Body mass index: BMI 38.0- 38.9 Qualified Code(s): E66.812 - Obesity, class 2; E66.09 - Other obesity due to excess calories; Z68.38 - Body mass index [BMI] 38.0-38.9, adult (4) Anxiety, generalized: Code(s): F41.1 - Generalized anxiety disorder Category: Medical (5) Depression, major, recurrent, in partial remission: Code(s): F33.41 - Major depressive disorder, recurrent, in partial remission Category: Medical (6) Impaired fasting blood sugar: Code(s): R73.01 - Impaired fasting glucose Category: Medical Plan History The patient is a 49-year-old female presenting with follow-up for obesity management. Obesity: - Began Wegovy in April with an initial dose of 1 mg. - Last dose taken approximately one month ago as insurance coverage ceased. - Lost weight from 253 lbs in March to 235 lbs at present. - No weight regain since last dose of Wegovy. - insurance has declined to cover Wegovy injections and Zepbound. Menopausal Symptoms: - Reports bloating, depression, fatigue, irritability, and disrupted sleep as possible menopausal symptoms. - History of being emotional and crying frequently, currently managed with venlafaxine, which has improved mood stability. - Experiences fatigue and difficulty with motivation, suspected to be related to menopause or perimenopause. - Sleep disturbances noted with variability in sleep quality; possible contributors include hot flashes and stress due to recent life events. Depression: - Currently taking bupropion 300 mg and venlafaxine 37.5 mg. - History of significant emotional symptoms improved by venlafaxine. Medications: - Wegovy 1 mg (previously for obesity management, discontinued) - Bupropion 300 mg for depression - Venlafaxine 37.5 mg for menopausal symptoms and depression Social History: - Recently sold house and moved in with mother. - Son recently sent to college. - Reports fatigue and lack of motivation potentially impacting weight management. Problem List - Obesity - Depression - Menopausal symptoms - fatigue, experience chronic fatigue during the day - some nights unable to sleep or wake up frequently Diagnostic results - Labs: August (details not specified) [place] [facility] - Referral discussed for seeing an obesity specialist. Patient Instructions - Schedule and attend sleep study. - Consult obesity specialist and behavior health/lineman service or work dispatcher as advised. - Monitor mood and menopausal symptoms with increased venlafaxine dose. - Consider probiotic for bloating. - Follow up examination scheduled for March 22. Orders: Orders RT home sleep study Today R40.0 - Somnolence, R53.83 - Other fatigue Referrals Bariatric Surgery Referral E66.09 - Other obesity due to excess calories, Z68.32 - Body mass index [BMI] 32.0-32.9, adult Medications: Changed From venlafaxine ER 37.5 mg PO BEDTIME 90 caps 0RF To venlafaxine ER 75 mg PO BEDTIME 90 caps 0RF
[2024-12-11 11:56] VITALS: BP 128/78; PULSE 83; O2SAT 100; BMI 35.7
--- OUTSIDE RECORDS SUMMARY | 2024-12-11 14:17 | XMS_ITS | Clinical Summary ---
Author Organization [facility] Address [address] [place] [id number] Phone Care Team Providers Care Gut Sorter Name Role Phone Debbie Lozada MD Primary Care Provider [phone] Allergies Active Allergy Reactions Criticality Noted Date Comments Penicillins Hives 10/08/2022 Medications buPROPion (WELLBUTRIN SR) 150 MG SR 12 hr tablet Take 2 tablets by mouth every morning. 08/09/2022 Active venlafaxine (EFFEXOR-XR) 37.5 MG 24 hr capsule Take 37.5 mg by mouth nightly at bedtime. 08/11/2023 Active Active Problems No known active problems Social History Tobacco Use Types Packs/Day Years Used Date Smoking Tobacco: Former Cigarettes Smokeless Tobacco: Never Tobacco Cessation:Counseling Given: Not Answered Alcohol Use Standard Drinks/Week Comments Yes 0 (1 standard drink = 0.6 oz pur e alcohol) Education Answer Date Recorded Are you interested in more education? Not on kailyn e 10/08/2022 Are you concerned about learning? Not on file 10/08/2022 No 10/08/2022 No 10/08/2022 Digital Access Answer Date Recorded No 10/08/2022 No 10/08/2022 Reliable internet access at home? Not on file 10/08/2022 Device with a working camera? Not on file Comments Unknown Sex and Gender Information Value Date Recorded Sex Assigned at Female 08/31/2022 12:03 PM EDT Legal Sex Female 12:01 PM EDT Gender Identity Female 08/31/2022 12:03 PM EDT Sexual Orientation Straight 08/31/2022 12 :03 PM EDT Last Filed Vital Signs Vital Sign Reading Time Taken Comments Blood Pressure 128/86 10/31/2023 5:17 PM EDT Pulse 96 10/31/2023 5:17 PM EDT Temperature 36.3 C (97.4 F) 10/31/2023 5:17 PM EDT Respiratory Rate 16 10/31/2023 5:17 PM EDT Oxygen Saturation 98% 10/31/2023 5:17 PM EDT Inhaled Oxygen Concentration - - Weight - - Height - - Body Mass Index - - Plan of Treatment Health Maintenance Due Date Last Done Comments Adult Td,Tdap Booster 1973 LIPID PANEL 1973 DEPRESSION SCREENING 1985 SMOKING Hx and SMOKELESS TOB ACCO SCREENING 1986 HEPATITIS C SCREENING 10/15/1991 HIV ONE-TIME SCREENING (18-6 5 YEARS) 10/15/1991 PAP SMEAR 1994 MAMMOGRAM 2013 COLOGUARD 2018 COLONOSCOPY 2018 COLORECTAL CANCER SCREENING 2018 FIT TEST 2018 FOBT 2018 SIGMOIDOSCOPY 2018 VIRTUAL COLONOSCOPY 2018 PNEUMOCOCCAL VACCINES (50+ y ears) (1 of 1 - PCV) 10/15/2023 ZOSTER VACCINES (1 of 2) 10/15/2023 INFLUENZA VACCINE (#1) 2024 COVID-19 VACCINE (1 - 2023-2 5 season) 2024 HEPATITIS A VACCINES Aged Out No long er eligible based on patient's age to complete this topic HIB VACCINES Aged Out No longer eligi ble based on patient's age to complete this topic MENINGOCOCCAL VACCINES (ACWY) Aged Out No longer eligible based on patient's age to complete this topic MENINGOCOCCAL VACCINES (B) Aged Out N o longer eligible based on patient's age to complete this topic Medical Devices Not on file Insurance [facility] TOGETHER O [facility] EPO MEDICAL [facility] TOGET[facility] O [facility] TOGETHER O [facility] POS EPO Care Teams Gut Sorter Relationship Specialty Start Date End Date Debbie Lozada MD [facility] [place] [id number] PCP - General Internal Medicine 08/31/22 Additional Source Comments The information contained in this document represents components of the legal health record. It is not the complete legal health record.[facility]
== END 2024-12-11 14:34 | disposition home or self-care (01) ==
LOC: HO.HMCC 11:46
PROVIDERS: PCP Internal Medicine; Visit Provider Internal Medicine
DX: R40.0 Somnolence (principal); R53.83 Other fatigue; E66.812 Obesity, class 2; E66.09 Other obesity due to excess calories; Z68.38 Body mass index [BMI] 38.0-38.9, adult; F41.1 Generalized anxiety disorder; F33.41 Major depressive disorder, recurrent, in partial remission; R73.01 Impaired fasting glucose

== ENCOUNTER → 2025-02-25 07:45 | Outpatient (BNV) | payer OTHER, SELFPAY | PROVIDERS: PCP Internal Medicine; Visit Provider Radiology Body Imaging | DX: Z12.31 Encounter for screening mammogram for malignant neoplasm of breast (principal) | CPT/HCPCS: 77063; 77067 ==

== ENCOUNTER 2025-02-25 07:46 | Outpatient (REF) | payer OTHER, SELFPAY ==
--- NOTE | ~2025-02-25 | MM_ITS ---
EXAMINATION: MM SCREENING DIGITAL BREAST TOMOSYNTHESIS, BILATERAL CLINICAL INFORMATION: Screening. Asymptomatic. Status post stereotactic needle core biopsy of left breast grouped calcifications on April 15, 2020 (T-shaped securmarker marker); benign pathology results. COMPARISON: Comparison made to multiple prior, most recent September 25, 2022, and most remote December 14, 2016. TECHNIQUE: Digital breast tomosynthesis is performed in mediolateral oblique and craniocaudal views along with computer-aided detection (CAD). Synthesized 2D images are generated from the tomosynthesis. FINDINGS: BREAST COMPOSITION: There are scattered areas of fibroglandular density. RIGHT BREAST: No significant masses, suspicious calcifications or other abnormalities are seen. LEFT BREAST: Tissue marker from previous needle core biopsy. No significant masses, suspicious calcifications or other abnormalities are seen. MM/MM tomosynthesis screening BI IMPRESSION: BILATERAL BREASTS: Benign, no mammographic evidence of malignancy. Normal interval follow-up is recommended in 12 months. ASSESSMENT: BI-RADS: Category 2: Benign RECOMMENDATION: Routine annual mammography screening. FOLLOW-UP: 1 year F/U This examination should not preclude the clinical evaluation of a suspicious palpable abnormality. This patient's information was entered into a reminder system with a target due date for their next mammogram. Electronically signed by: Reggie Patterson MD 02/26/2025 08:29 AM [facility]
== END 2025-02-25 07:47 | disposition home or self-care (01) ==
LOC: HO.MAMMO 07:46
PROVIDERS: PCP Internal Medicine; Visit Provider Internal Medicine
DX: Z12.31 Encounter for screening mammogram for malignant neoplasm of breast (principal)
CPT/HCPCS: 77063; 77067

== ENCOUNTER 2025-03-21 09:31 | Outpatient (REF) | payer OTHER, SELFPAY ==
[2025-03-21 10:52] LABS: MANUAL DIFF FLAG NO
[2025-03-21 10:57] LABS: Hematocrit 44.3 % (37.0-47.0); Hemoglobin 15.1 g/dl (12.0-16.0); Imm Gran Abs Auto 0.03 X10*3/uL (0.00-0.03); Imm Gran Pct Auto 0.4 % (0.0-0.4); Lymphocytes Absolute Auto 2.9 X10*3/uL (1.2-4.9); Mean Corpuscular HGB Conc 34.1 g/dl (31.0-35.0); Mean Corpuscular Hemoglobin 31.3 pg (27.0-33.0); Mean Corpuscular Volume 91.9 fL (80.0-98.0); NRBC Abs Auto 0.000 X10*3/uL (0.0-0.012); NRBC Pct Auto 0.0 /100WBC (0.0-0.2); Platelet Count 169 X10*3/uL (160-400); Red Blood Count 4.82 X10*6/uL (4.20-5.50); White Blood Count 7.5 X10*3/uL (4.8-10.8)
--- OUTSIDE RECORDS SUMMARY | 2025-03-21 10:57 | XMS_ITS | Clinical Summary ---
Author Organization [facility] Address [address] [place] [id number] Phone Care Team Providers Care Broiler Manager Name Role Phone Debbie Lozada MD Primary Care Provider [phone] Allergies Active Allergy Reactions Criticality Noted Date [...] you interested in more education? Not on kailny e 10/08/2022 Are you concerned about learning? [...] VACCINE (#1) 2024 COVID-19 VACCINE (1 - 2024-2 6 season) 2024 RSV VACCINE (1 - 1-dose 75+ series) 2048 HEPATITIS A VACCINES Aged Out No long [...] topic Medical Devices Not on file Insurance [facility] TOGETHER O [facility] EPO [facility] TOGETHER [facility] POS EPO Care Teams Broiler Manager Relationship Specialty Start Date End Date Debbie Lozada MD [address] [place] [id number] PCP - General Internal Medicine 08/31/22 Additional Source Comments The information contained in this document represents components of the legal health record. It is not the complete legal health record.[facility]
[2025-03-21 11:18] LABS: Appearance Urine Cloudy; Glucose Urine UA Negative (Negative); PH 5.5 (5.0-9.0); Specific Gravity - Urine 1.020 (1.005-1.025); UMIC TRIGGER UACC YES
[2025-03-21 11:23] LABS: Alanine Aminotransferase 48 U/L (0-31); Albumin Level 4.8 g/dL (3.5-5.0); Alkaline Phosphatase 111 U/L (39-117); Anion Gap 11 (12-20); Aspartate Amino Transferase 26 U/L (5-31); Blood Urea Nitrogen 12 mg/dL (9-16); Calcium 9.1 mg/dL (8.4-10.2); Carbon Dioxide 27 mmol/L (22-29); Chloride 105 mmol/L (96-108); Cholesterol 240 mg/dL (<200); Estimated Glomerular Filt Rate > 60; HDL Cholesterol 48 mg/dL (>40); Potassium 4.0 mmol/L (3.3-5.1); Sodium 139 mmol/L (135-145); Total Protein 7.4 g/dL (6.5-8.0); Triglycerides 99 mg/dL (<150)
== END 2025-03-21 09:32 | disposition home or self-care (01) ==
LOC: HO.10HDL 09:31
PROVIDERS: Visit Provider Nurse Practitioner Family
DX: Z00.00 Encounter for general adult medical examination without abnormal findings (principal); Z13.29 Encounter for screening for other suspected endocrine disorder; Z13.6 Encounter for screening for cardiovascular disorders; E55.9 Vitamin D deficiency, unspecified
CPT/HCPCS: 36415; 80053; 80061; 81001; 82306; 84443; 85025

== ENCOUNTER 2025-03-22 10:02 | Outpatient (AMB) | payer OTHER, SELFPAY ==
[2025-03-22 10:03] VITALS: BP 130/74; PULSE 83; O2SAT 97; BMI 37.6
--- NOTE | 2025-03-22 10:03 | MHC.PC.OV ---
Vital Signs 03/22/25 10:03 Height 5 ft 8 in Weight 247 lb BMI 37.6 BP 130/74 Blood Pressure Location Lt brachial Position Sitting Pulse 83 Pulse Source Pulse Oximeter Pulse Oximetry (%) 97 Oxygen Delivery Method Room Air Intake Visit Reasons: Annual PE Allergies Penicillins (PCN) Allergy (Intermediate, Verified 03/22/25 10:08) RASH Medication List - Last Reconciled 03/22/25 by Debbie Lozada MD bupropion HCl XL 150 mg PO QAM venlafaxine ER 75 mg PO BEDTIME Tobacco use date assessed: 08/24/24 Dental Screening Dental Screen Date: 08/24/24 HPI HPI Comments History of Present Illness Details History of Present Illness The patient is a 49 year old female presenting for an annual physical exam and to discuss medication management for her mental health and perimenopausal symptoms. Mood Disorder: - The patient is currently taking bupropion and venlafaxine but feels her medications are no longer working effectively for her depression. - She reports a lack of motivation, which is uncharacteristic for her, along with significant irritability and obsessive thoughts, particularly regarding household mess, preventing her from relaxing. - Venlafaxine was previously prescribed for crying episodes. - She reports racing thoughts and difficulty calming her mind, although she can focus well at work. - Bupropion was initially prescribed to aid with smoking cessation. - The patient is now open to trying an SSRI, as her previous concern about libido side effects is no longer a primary issue due to perimenopause. Perimenopausal State: - The patient believes perimenopause is contributing to her current symptoms and has negatively impacted her libido. - She experiences hot flashes and excessive sweating. - She has an IUD in place, which a nurse practitioner had previously suggested might help with hormones, but she continues to have hot flashes. Hyperhidrosis: - The patient reports a long-standing issue with excessive sweating that predates her perimenopausal symptoms. - The sweating significantly interferes with her life, making it difficult for her to get ready to leave the house. Hypercholesterolemia: - Recent lab results from yesterday revealed that her cholesterol is very high. Prediabetes: - Recent lab results showed a fasting glucose level of 101 mg/dL, indicating prediabetes. History of Colonic Polyps: - The patient had a colonoscopy in February 2023, during which polyps were found. - A follow-up colonoscopy is recommended in three years, due in February 2026. Medical History: - Depression, treated with bupropion and venlafaxine. - Perimenopause - Hypercholesterolemia - Prediabetes - History of smoking, now quit - Stable elevated liver enzyme since August - History of colonic polyps Surgical History: - Colonoscopy with polypectomy in February 2023 Social History: - Substance Use: History of smoking; she quit using bupropion. - Living Situation: Recently moved to a new house in [place], [place], about a month ago and officially blended families with her partner. - Stressors: Reports feeling overwhelmed by her new home being filled with boxes and feeling a compulsive need to organize, which causes distress. - Weight Management: Expresses a desire to lose weight but currently lacks the motivation. Family History: - There is a possible history of psychiatric illness in her grandfather. - There is a history of alcoholism on her father's side of the family, though not in her parents. - Her sister is a recovering drug addict and has been sober for 20 years. Health Maintenance - Mammogram: Up to date, completed on February 25. - RFID ANALYST visit: Due in April. - Colonoscopy: Last performed in February 2023, which revealed polyps. - Next colonoscopy is due in February 2026. - Dermatology: Discussed a preventive visit and will seek a referral. - Immunizations: Patient agreed to receive the influenza vaccine during the visit. [place] of Care - The patient sees Dr. Schreiber at [facility] OB-CONTROL TOWER OPERATOR. - A referral will be coordinated by Tosha, the behavioral health coordinator, for the patient to see a psychiatrist for formal diagnosis. Medications - Bupropion (Wellbutrin) for depression - Venlafaxine for depression - IUD in situ Employment - The patient works in [place] three days a week and commutes from her new home in [place]. - She reports that she loves her job. 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 [facility] Medical History Vitamin D deficiency Goiter HLD (hyperlipidemia) Breast calcification, left Obesity Environmental allergies Lipid disorder Anxiety, generalized Depression, major, recurrent, in partial remission Surgical History History of esophagogastroduodenoscopy (EGD) Hx of colonoscopy History of lumbar surgery History of section Family History Father HTN (hypertension) CHF (congestive heart failure) CVD (cardiovascular disease) Hypercholesterolemia Hx of CABG Myocardial infarction Mother Osteoporosis HTN (hypertension) Brother HTN (hypertension) Hypercholesterolemia Paternal Grandfather Colon cancer Social History Housing: House Alcohol intake: current Alcohol intake frequency: holidays/special occasions only Patient Tobacco Use Status: Former Tobacco user Cigarette Packs Per Day: 1 Years Smoked: 30 e-Cigarette/Vaping Use: Never Used service: No Current occupational status: employed Cognitive needs: Yes Hearing needs: No Vision needs: Yes Questionnaire Thrive Questionnaire Date Thrive assessed: 05/22/24 I am a: Patient What is your living situation today?: I have a steady place to live Within the past 12 months, did the food you bought not last and you didn't have the money to get more?: Never true Within the past 12 months, did you worry whether your food would run out before you got money to buy more?: Never true Do you have trouble paying for medicines?: No Do you have trouble getting transportation to medical appointments?: No Do you have trouble paying your heating and electricity bill?: No Do you have trouble taking care of your child, family member or friend?: No Do you have trouble with day-to-day activities such as bathing, preparing meals, shopping, managing finances, etc.?: No Are you currently unemployed and looking for a job?: No Are you interested in more education?: No Currently or been in a relationship where the following occur: No concerns reported THRIVE Score: 0 CARLA-7 AMB Questionnaire CARLA-7 Date CARLA - 7 assessed: 12/16/23 Source: Developed by Drs. Igor Nagel, Juanita Pulido, Shamar Rust and colleagues, with an educational joseph from [employer]. Review of Systems Narrative Review of Systems - General: No fever no chills - Neurological: No headaches no dizziness - Ear nose throat: No sore throat no hearing difficulty no ear pain - Cardiovascular: No syncope, no chest pain, no palpitations - Gastrointestinal: No nausea vomiting or diarrhea - Endocrine: No polyuria polydipsia no heat intolerance - Genitourinary: No dysuria - Skin: No new complaints Physical exam (Primary Care) Vital Signs: Last Vital Signs Pulse 83 03/22/25 10:03 BP 130/74 03/22/25 10:03 Pulse Ox 97 03/22/25 10:03 Oxygen Delivery Method Room Air 03/22/25 10:03 BMI result Body Mass Index 37.6 Tobacco/Smoking Status: Tobacco use Status Tobacco use date assessed 08/24/24 03/22/25 10:03 Patient Tobacco Use Status Former Tobacco user 03/22/25 10:03 e-Cigarette/Vaping Use Never Used 03/22/25 10:03 Thrive Assessment: Date of Thrive Assessment Date Thrive assessed 05/22/24 03/22/25 10:03 Currently or been in a relationship where the following occur: No concerns reported Narrative Diagnostic results Physical Exam General: Cooperative, healthy appearing, comfortable, no acute distress Orientation: Patient oriented x3 Head: Normal to inspection Ears: Within normal limit visually Nose: Normal external nose present Face and sinus: Normal facial exam Eyes: Appearance normal, extraocular movement intact pupils reactive Neck: Normal visual inspection and supple Respiratory: Normal respiratory effort and able to speak in complete sentences. Clear to auscultation, no stridor Cardiovascular: S1 and S2 RRR GI: Normal to inspection. Soft to palpation and nontender Skin: Turgor normal, no acute findings Neuro: Patient oriented x3, motor sensory intact, balance intact, tandem pass Extremities: Normal to inspection, ROM intact . Office Procedures Flu Questionnaire Does the patient have a severe egg allergy?: No Does the patient have severe life threatening allergies?: No Does the patient have a fever or illness today?: No Has the patient ever had Guillain-Bonnie[place] Syndrome?: No Has the patient ever had any past reaction to a flu shot?: No Immunizations Fluarix [id number] (PF) 45 mcg (15 mcg x 3)/0.5 mL IM syringe Performing Provider: Debbie Lozada MD Performing Location: [facility] Administered by: Watson Warner CMA on 03/22/25 10:37 Dose Route Admin Location Dispensed Lot Number Expiration Date NDC [employer] 0.5 mL IM Right Deltoid 0.5 mL [id number] 10/01/25 [id number] [employer] VIS Given Date VIS Provided VIS Publication Date 03/22/25 Single Vaccine 24 Eligibility Eligibility Date Funding Source Not [facility] Eligible 03/22/25 Private Coding Level of Care Code Est Pt Prev Care 40-64y(45579) Add On Preventative Visit Only Diagnoses Encounter for general adult medical examination with abnormal findings Z00.01 Mood swings R45.86 Racing thoughts R41.89 Class 2 obesity due to excess calories without serious comorbidity with body mass index (BMI) of 38.0 to 38.9 in adult E66.812; E66.09; Z68.38 Body mass index: BMI 38.0-38.9 Obesity classification: adult class 2 (BMI 35 - 39.9) Serious obesity comorbidity presence: without serious comorbidity Anxiety, generalized F41.1 Depression, major, recurrent, in partial remission F33.41 Impaired fasting blood sugar R73.01 Lipid disorder E78.9 Assessment & Plan Assessment & Plan (1) Encounter for general adult medical examination with abnormal findings: Code(s): Z00.01 - Encounter for general adult medical examination with abnormal findings Category: Medical (2) Mood swings: Code(s): R45.86 - Emotional lability Category: Medical (3) Racing thoughts: Code(s): R41.89 - Other symptoms and signs involving cognitive functions and awareness Category: Medical (4) Obesity due to excess calories: Code(s): E66.09 - Other obesity due to excess calories Category: Medical Qualifiers: Body mass index: BMI 38.0-38.9 Obesity classification: adult class 2 (BMI 35 - 39.9) Serious obesity comorbidity presence: without serious comorbidity Qualified Code(s): E66.812 - Obesity, class 2; E66.09 - Other obesity due to excess calories; Z68.38 - Body mass index [BMI] 38.0-38.9, adult (5) Anxiety, generalized: Code(s): F41.1 - Generalized anxiety disorder Category: Medical (6) Depression, major, recurrent, in partial remission: Code(s): F33.41 - Major depressive disorder, recurrent, in partial remission Category: Medical (7) Impaired fasting blood sugar: Code(s): R73.01 - Impaired fasting glucose Category: Medical (8) Lipid disorder: Code(s): E78.9 - Disorder of lipoprotein metabolism, unspecified Category: Medical Plan Patient Instructions - You will be connected with our behavioral health coordinator, Tosha, who will help you set up an appointment with a psychiatrist for a formal diagnosis of your symptoms. - Decrease your Wellbutrin dose to 150 mg daily for 15 days, and then stop taking it completely. - A new prescription for Topamax will be sent to your pharmacy; start with a small dose at bedtime to help with mood stability. - Continue taking venlafaxine as prescribed for now.. - Please send a message through the portal or call in three weeks to provide an update on how you are feeling with the medication changes. - Try to manage feeling overwhelmed by tackling one task at a time. - Schedule a follow-up appointment in six months. or early if needed - Proceed with your scheduled RFID ANALYST appointment in April. - You will receive a flu shot during this visit. Orders: Orders Influenza [id number] Immunization Today Z23 - Encounter for immunization Medications: New topiramate (Topamax) 25 mg PO DAILY 30 tabs 0RF Changed From bupropion HCl XL (Wellbutrin XL) 300 mg PO QAM 90 tabs 0RF To bupropion HCl XL 150 mg PO QAM 30 tabs 0RF Refilled bupropion HCl XL 150 mg PO QAM 30 tabs 0RF
--- OUTSIDE RECORDS SUMMARY | 2025-03-22 11:18 | XMS_ITS | Clinical Summary ---
Author Organization [facility] Address [address] [place] [id number] Phone Care Team Providers Care Ict Support Engineer Name Role Phone Debbie Lozada MD Primary Care Provider [phone] Allergies Active Allergy Reactions Criticality Noted Date [...] Medical Devices Not on file [facility] TOGETHER O [facility] POS EPO Care Teams Ict Support Engineer Relationship Specialty Start Date End Date Debbie Lozada MD [address] [place] [id number] PCP - General Internal Medicine 08/31/22 Additional Source Comments The information contained in this document represents components of the legal health record. It is not the complete legal health record.[facility]
== END 2025-03-22 10:45 | disposition home or self-care (01) ==
LOC: HO.HMCC 10:02
PROVIDERS: PCP Internal Medicine; Visit Provider Internal Medicine
DX: Z00.01 Encounter for general adult medical examination with abnormal findings (principal); R45.86 Emotional lability; R41.89 Other symptoms and signs involving cognitive functions and awareness; E66.812 Obesity, class 2; E66.09 Other obesity due to excess calories; Z68.38 Body mass index [BMI] 38.0-38.9, adult; F41.1 Generalized anxiety disorder; F33.41 Major depressive disorder, recurrent, in partial remission; R73.01 Impaired fasting glucose; E78.9 Disorder of lipoprotein metabolism, unspecified; Z23 Encounter for immunization

== ENCOUNTER → 2025-03-22 10:02 | Outpatient (BNVA) | payer OTHER, SELFPAY | PROVIDERS: PCP Internal Medicine; Visit Provider Internal Medicine | DX: Z23 Encounter for immunization (principal) | CPT/HCPCS: 90471; 90656 ==